=== PATIENT | female | born 1955 | race Caucasian/White ===

== ENCOUNTER 2016-10-22 15:56 | Inpatient (IN) | payer OTHER ==
[~2016-10-22] VITALS: Ht 167.6 cm; Wt 74.3 kg
[~2016-10-22 15:56] MED LIST: ASPI81 PO; ATEN1TAB74 PO; EFFE150C PO; EXEN5PEN SQ; FISHOIL XX; FLON0.053; GLUCTAB PO; HYDR-2768 PO; LANO0.2510 PO; LEVO25TA36 PERC; NIFE1TAB85 PO; TIMO0.5S6 OU; TRIL135C PO; VASO10TA8 PO
[2016-10-22 15:58] VITALS: BP 189/114; PULSE 120; RESP 24; TEMP 102.9; O2SAT 96
--- NOTE | 2016-10-22 16:06 | PD ---
Physical Exam Date Seen by Provider: Oct 22, 2016 Time Seen by Provider: 16:04 Data Data Last Documented VS Vital Signs Date Time Temp Pulse Resp B/P Pulse Ox O2 Delivery O2 Flow Rate FiO2 10/22/16 15:58 102.9 120 24 189/114 96 Room Air [facility] Supervised Visit with VELMA: No Narrative Course 61 YO F with complaint of weeping wound in left axilla. + fever, chills. Recent history tummy tuck and bilateral brachioplasty. Saw plastic surgeon in office this week, told to return Monday. Vitals reviewed. Awaiting bed placement. Idalmis Frost Oct 22, 2016 16:06
[2016-10-22] MEDS ORDERED: SODIUM CHLOR 0.9% 1000 ML INJ 100 ML IV ONE (16:19)
[2016-10-22] MEDS ORDERED: SODIUM CHLOR 0.9% 1000 ML INJ 1,000 ML IV ONE ×2 (16:19)
[2016-10-22 16:20] VITALS: RESP 16; O2SAT 98
[2016-10-22] MEDS ORDERED: PIPERACIL-TAZO 4.5 GM PREMIX 100 ML IV STA (16:27)
[2016-10-22] MEDS ORDERED: VANCOMYCIN INJ 1,000 MG in SODIUM CHLOR 0.9% 250 ML INJ 250 ML IV STA (16:27)
--- NOTE | 2016-10-22 16:29 | PD ---
HPI Chief Complaint: Fever Time Seen by Provider: 16:29 Travel History International Travel<30 days: No Contact w/Intl Traveler<30days: No Traveled to known affect area: No History of Present Illness HPI This is a 61-year-old female with history of hypertension, diabetes, depression , tobacco use, status post bilateral brachioplasty and tummy tuck. Patient underwent these procedures on October 10 in [place]. , the patient tripped over a dog and landed on an outstretched right upper extremity. She tore suture site in the right axilla causing the wound to dehisce. She followed up with her plastic surgeon last week who thought that it "looked awful " but felt that it would heal okay. She was to follow-up with him this coming week however she developed fever today and a malodorous drainage from the wound. Patient states she has not been feeling well throughout the course of the day. She felt that once the fever develop she needed to come to the emergency department. Denies any chest tightness. No difficulty breathing. No abdominal pain, nausea, vomiting. She is reporting no other symptoms at this time. PFSH Past Medical History Depression: Yes Heart Rhythm Problems: No Cancer: No Cardiac Catheterization: No Cardiovascular Problems: Yes (HTN) High Cholesterol: No Congestive Heart Failure: No Diabetes: Yes Diminished Hearing: No Endocrine: Yes Genitourinary: No Hepatitis: No Hiatal Hernia: No Hypertension: Yes Immune Disorder: No Musculoskeletal: Yes (arthritis) Neurologic: No Psychiatric: Yes (pt takes effexor for depression) Reproductive: No Respiratory: Yes (recent sinus infection) Thyroid Disease: Yes Ulcer: Yes Menopausal: Yes Past Surgical History Section: Yes Coronary Artery Bypass Graft: No Eye Surgery: Yes (upper blepharplasty ) Gynecologic Surgery: Yes (C SECTION d and c) Pacemaker: No Thoracic Surgery: Yes (breast reduction) Other Surgery: Yes (BREAST RECONSTRUCTION, D&C) Social History Alcohol Use: No Tobacco Use: Yes (1/2 PPD) Substance Use: No Allergies-Medications (Allergen,Severity, Reaction): Coded Allergies: No Known Allergies (Verified , 10/22/16) Reported Meds & Prescriptions Reported Meds & Active Scripts Active Reported Aspirin DR (Aspirin) 81 Mg Tabdr 81 Mg PO DAILY Atenolol 100 Mg Tab 100 Mg PO DAILY Enalapril (Enalapril Maleate) 20 Mg Tab 20 Mg PO BID Hydrochlorothiazide 25 Mg Tab 25 Mg PO DAILY Levothyroxine (Levothyroxine Sodium) 112 Mcg Tab 112 Mcg PO DAILY Metformin (Metformin HCl) 500 Mg Tab 500 Mg PO AC DINNER With a meal Timolol Opth Drops 0.5 % Soln 1 Drop EACH EYE BID Effexor XR 24 HR (Venlafaxine HCl) 150 Mg Cap 150 Mg PO DAILY Tanzeum 4-Pack Inj (Albiglutide) 30 Mg Pfpen 30 Mg SQ Q7D Vitamin D3 Liq (Cholecalciferol) 1,200 Unit/15 Ml Liqd Unknown Dose PO DAILY Chelated Calcium (Calcium) 200 Mg Tab 400 Mg PO DAILY Review of Systems Except as stated in HPI: all other systems reviewed are Neg Physical Exam Narrative GENERAL: Well-nourished female patient, ambulatory and in no acute distress SKIN: Focused skin assessment warm/dry. Surgical site on the left upper extremity were brachioplasty was done has Steri-Strips in place and is well approximated without erythema or edema. The brachioplasty site in the right upper extremity is dehisced with a large opening in the axilla with a malodorous purulent drainage. Erythema is localized around the opening. There is slight crepitus just near the wound, likely due to the surgical site and large dehisced opening. The abdomen has a binder in place with a well approximated surgical site along the lower abdomen with Steri-Strips in place. There is resolving ecchymosis over the entire abdomen. HEAD: Atraumatic. Normocephalic. EYES: Pupils equal and round. No scleral icterus. No injection or drainage. ENT: No nasal bleeding or discharge. Mucous membranes pink and moist. NECK: Trachea midline. No JVD. CARDIOVASCULAR: Tachycardic rate and rhythm. No murmur appreciated. RESPIRATORY: No accessory muscle use. Clear to auscultation. Breath sounds equal bilaterally. GASTROINTESTINAL: Abdomen soft, non-tender, nondistended. Surgical site as described above. Hepatic and splenic margins not palpable. MUSCULOSKELETAL: No obvious deformities. No clubbing. No cyanosis. No edema. NEUROLOGICAL: Awake and alert. No obvious cranial nerve deficits. Motor grossly within normal limits. Normal speech. PSYCHIATRIC: Appropriate mood and affect; insight and judgment normal. Data Data Last Documented VS Vital Signs Date Time Temp Pulse Resp B/P Pulse Ox O2 Delivery O2 Flow Rate FiO2 10/22/16 18:47 16 10/22/16 18:00 99.2 85 122/59 98 Room Air Orders Electrocardiogram (10/22/16 16:19) Complete Blood Count With Diff (10/22/16 16:19) Comprehensive Metabolic Panel (10/22/16 16:19) Prothrombin Time / Inr (Pt) (10/22/16 16:19) Act Partial Throm Time (Ptt) (10/22/16 16:19) Lactic Acid Sepsis Protocol (10/22/16 16:19) Ckmb (Isoenzyme) Profile (10/22/16 16:19) Urinalysis - C+S If Indicated (10/22/16 16:19) Influenzae A/B Antigen (10/22/16 16:19) Blood Culture (10/22/16 16:19) Chest, Single Ap (10/22/16 16:19) Blood Glucose (10/22/16 16:19) Ecg Monitoring (10/22/16 16:19) Iv Access Insert/Monitor (10/22/16 16:19) Oximetry (10/22/16 16:19) Oxygen Administration (10/22/16 16:19) Acetaminophen (Tylenol) (10/22/16 16:30) Ibuprofen (Motrin) (10/22/16 16:30) Sodium Chlor 0.9% 1000 Ml Inj (Ns 1000 M (10/22/16 16:19) Sodium Chlor 0.9% 1000 Ml Inj (Ns 1000 M (10/22/16 16:19) Sodium Chlor 0.9% 1000 Ml Inj (Ns 1000 M (10/22/16 16:19) Wound Culture And Gram Stain (10/22/16 16:27) Piperacil-Tazo 4.5 Gm Premix (Zosyn 4.5 (10/22/16 16:27) Vancomycin Inj (Vancomycin Inj) (10/22/16 16:27) Vascular Access Team Consult/P PRN (10/22/16 16:39) Vascular Poc Ultrasound (10/22/16 ) Morphine Inj (Morphine Inj) (10/22/16 18:30) Ct Humerus W Iv Contrast (10/22/16 ) Iohexol 350 Inj (Omnipaque 350 Inj) (10/22/16 19:44) Vital Signs (Adult) JOELLEN.Q4H (10/22/16 22:07) Activity Oob Ad Karla (10/22/16 22:07) Sodium Chlor 0.9% 1000 Ml Inj (Ns 1000 M (10/22/16 22:15) Admit Order (Ed Use Only) (10/22/16 22:07) Labs Laboratory Tests Test 10/22/16 10/22/16 10/22/16 17:20 17:25 20:00 White Blood Count 11.8 TH/MM3 Red Blood Count 3.04 MIL/MM3 Hemoglobin 8.5 GM/DL Hematocrit 25.1 % Mean Corpuscular Volume 82.6 FL Mean Corpuscular Hemoglobin 28.0 PG Mean Corpuscular Hemoglobin 33.9 % Concent Red Cell Distribution Width 15.5 % Platelet Count 435 TH/MM3 Mean Platelet Volume 6.8 FL Neutrophils (%) (Auto) 95.8 % Lymphocytes (%) (Auto) 1.9 % Monocytes (%) (Auto) 1.9 % Eosinophils (%) (Auto) 0.2 % Basophils (%) (Auto) 0.2 % Neutrophils # (Auto) 11.3 TH/MM3 Lymphocytes # (Auto) 0.2 TH/MM3 Monocytes # (Auto) 0.2 TH/MM3 Eosinophils # (Auto) 0.0 TH/MM3 Basophils # (Auto) 0.0 TH/MM3 CBC Comment DIFF FINAL Differential Comment Prothrombin Time 12.1 SEC Prothromb Time International 1.1 RATIO Ratio Activated Partial 33.1 SEC Thromboplast Time Sodium Level 127 MEQ/L Potassium Level 3.1 MEQ/L Chloride Level 90 MEQ/L Carbon Dioxide Level 26.9 MEQ/L Anion Gap 10 MEQ/L Blood Urea Nitrogen 9 MG/DL Creatinine 0.46 MG/DL Estimat Glomerular Filtration 137 ML/MIN Rate Random Glucose 128 MG/DL Calcium Level 8.3 MG/DL Total Bilirubin 1.0 MG/DL Aspartate Amino Transf 106 U/L (AST/SGOT) Alanine Aminotransferase 97 U/L (ALT/SGPT) Alkaline Phosphatase 289 U/L Total Creatine Kinase 50 U/L Total Protein 6.2 GM/DL Albumin 2.7 GM/DL Lactic Acid Level 1.4 mmol/L Urine Color LIGHT-YELLOW Urine Turbidity CLEAR Urine pH 7.0 Urine Specific [place] 1.008 Urine Protein NEG mg/dL Urine Glucose (UA) NEG mg/dL Urine Ketones NEG mg/dL Urine Occult Blood NEG Urine Nitrite NEG Urine Bilirubin NEG Urine Urobilinogen LESS THAN 2.0 MG/DL Urine Leukocyte Esterase NEG Urine WBC LESS THAN 1 /hpf Urine Squamous Epithelial <1 /hpf Cells Microscopic Urinalysis Comment CULT NOT INDICATED MDM Medical Decision Making Medical Screen Exam Complete: Yes Emergency Medical Condition: Yes Medical Record Reviewed: Yes Differential Diagnosis Postop infection versus wound dehiscence versus abscess versus necrotizing fasciitis Narrative Course 61-year-old female presents to the emergency department for evaluation. Patient has history of brachioplasty and wound dehiscence of the right upper extremity surgical site. Patient is febrile and tachycardic here. Wound culture is obtained. Sepsis workup was initiated. CBC is a mild leukocytosis of 11.8 and a neutrophilia of 11.3. Patient's CMP is with hyponatremia of 127, hypokalemia 3.1, liver enzymes are elevated with AST of 106, ALT 97, alkaline phosphatase of 289. I discussed the patient with my attending physician who also assessed the surgical site. There is white crepitus near the axillary. CT imaging is ordered for further evaluation of this. 2200 CT imaging results soft tissue induration, skin thickening, and subcutaneous collections of gas in the tissue adjacent to the medial armpit no drainable fluid collection is seen. My initial attending has left and Dr. Cooper has taken over. I have her assess the area as well and agrees the subcutaneous gas is likely secondary to the surgical site and opening. I discussed the patient with Dr. Bernal, he requested admission to Dr. Fair. Sepsis Criteria SIRS Criteria (2 or more): Temp > 100.9 or < 96.8, Heart rate over 90 Sepsis Criteria (SIRS+source): Infect source susp/known Diagnosis Primary Impression: Sepsis Qualified Code: A41.9 - Sepsis, due to unspecified organism Additional Impressions: Post op infection Hyponatremia Transaminitis Admitting Information Admitting Physician Requests: Admit Condition: Stable Daphne Duval BRYANT Oct 22, 2016 16:29
[2016-10-22] MEDS ORDERED: IBUPROFEN 600 MG TAB PO ONE (16:30)
[2016-10-22] MEDS ORDERED: ACETAMINOPHEN 325 MG TAB PO ONE (16:30)
[2016-10-22 17:00] VITALS: BP 132/58; PULSE 72; RESP 16; O2SAT 98
[2016-10-22 17:46] LABS: AUTOMATED NEUTROPHIL # 11.3 TH/MM3 (1.8-7.7); BASOPHIL % 0.2 % (0.0-2.0); EOSINOPHIL % 0.2 % (0.0-4.0); HEMATOCRIT 25.1 % (35.0-46.0); HEMO FLAGS DIFF FINAL; LYMPH % 1.9 % (9.0-44.0); LYMPHOCYTE # 0.2 TH/MM3 (1.0-4.8); MEAN CELL VOLUME 82.6 FL (80.0-100.0); MEAN CORPUSCULAR HGB CONC 33.9 % (32.0-36.0); MONO % 1.9 % (0.0-8.0); NEUT % 95.8 % (16.0-70.0); PLATELET COUNT 435 TH/MM3 (150-450); RED BLOOD COUNT 3.04 MIL/MM3 (4.00-5.30); RED CELL DISTRIBUTION WIDTH 15.5 % (11.6-17.2); WHITE BLOOD COUNT 11.8 TH/MM3 (4.0-11.0)
[2016-10-22 18:00] VITALS: BP 122/59; PULSE 85; RESP 16; TEMP 99.2; O2SAT 98
[2016-10-22 18:00] LABS: APTT (PATIENT) 33.1 SEC (24.3-30.1); INTERNATIONAL NORMALIZED RATIO 1.1 RATIO; PROTHROMBIN TIME - PATIENT 12.1 SEC (9.8-11.6)
--- NOTE | 2016-10-22 18:02 | RADRPT ---
EXAM DATE/TIME: 10/22/2016 17:12 [facility] COMPARISON: No previous studies available for comparison. INDICATIONS : Fever. MEDICAL HISTORY : Diabetes mellitus type II. SURGICAL HISTORY : None. ENCOUNTER: Initial ACUITY: 1 day PAIN SCORE: 0/10 LOCATION: Bilateral chest FINDINGS: A single view of the chest demonstrates the lungs to be symmetrically aerated without evidence of mas s, infiltrate or effusion. The cardiomediastinal contours are unremarkable. Osseous structures are intact. CONCLUSION: The lungs are clear. Geovany Strong MD on October 22, 2016 at 18:00 Board Certified Radiologist. This report was verified electronically.
[2016-10-22 18:14] LABS: ANION GAP 10 MEQ/L (5-15); AST (GOT) 106 U/L (15-37); BICARBONATE 26.9 MEQ/L (21.0-32.0); BLOOD UREA NITROGEN 9 MG/DL (7-18); CHLORIDE 90 MEQ/L (98-107); GLOMERULAR FILTRATION RATE 137 ML/MIN (>89); POTASSIUM 3.1 MEQ/L (3.5-5.1); SODIUM (NA) 127 MEQ/L (136-145)
[2016-10-22 18:15] LABS: ALT (GPT) 97 U/L (10-53)
[2016-10-22 18:17] LABS: ALKALINE PHOSPHATASE 289 U/L (45-117)
[2016-10-22 18:18] LABS: CREATINE KINASE 50 U/L (26-192)
[2016-10-22] MEDS ORDERED: MORPHINE SULFATE 4 MG/ML INJ IV PUSH ONE (18:30)
[2016-10-22] MEDS ORDERED: ALBI1INJ SQ (18:38)
[2016-10-22] MEDS ORDERED: EFFE150C PO (18:38)
[2016-10-22] MEDS ORDERED: TIMO0.5S30 EACH EYE (18:38)
[2016-10-22] MEDS ORDERED: VITA1200 PO (18:38)
[2016-10-22] MEDS ORDERED: METF500T PO (18:38)
[2016-10-22] MEDS ORDERED: CHEL200T PO (18:38)
[2016-10-22] MEDS ORDERED: LEVO-168 PO (18:38)
[2016-10-22] MEDS ORDERED: ATEN100T PO (18:41)
[2016-10-22] MEDS ORDERED: HYDR25TA5 PO (18:41)
[2016-10-22] MEDS ORDERED: ENAL20TA PO (18:41)
[2016-10-22] MEDS ORDERED: ASPI81TA5 PO (18:41)
[2016-10-22] MEDS ORDERED: IOHEXOL 350 MG/ML 10 ML VIAL (for RAD DIAG) IV ONE (19:44)
[2016-10-22 20:58] LABS: BLOOD, URINE NEG (NEG); GLUCOSE,URINE NEG (NEG); KETONE, URINE NEG (NEG); NITRITE,URINE NEG (NEG); SQUAMOUS EPITHELIAL CELL URINE <1 /hpf (0-5); URINE COLOR LIGHT-YELLOW (YELLW/STRAW)
[2016-10-22 20:59] LABS: COMMENT (UR) CULT NOT INDICATED; CULTURE IF INDICATED CULT NOT INDICATED
--- NOTE | 2016-10-22 21:44 | RADRPT ---
EXAM DATE/TIME: 10/22/2016 19:40 [facility] COMPARISON: No previous studies available for comparison. INDICATIONS : Status post-brachioplasty with possible infection of proximal humerus by armpit. IV CONTRAST: 98 cc Omnipaque 350 (iohexol) IV RADIATION DOSE: 44.85 CTDIvol (mGy) MEDICAL HISTORY : None SURGICAL HISTORY : None. ENCOUNTER: Initial ACUITY: 4 - 6 days PAIN SCALE: 4/10 LOCATION: Right proximal humerus. TECHNIQUE: Volumetric scanning of the humerus was performed. Using automated exposure control and adjustment of the mA and/or kV according to patient size, radiation dose was kept as low as reasonably achievable to obtain optimal diagnostic quality images. FINDINGS: There is induration of the fat in the fold of the armpit with several focal collections of gas and sk in thickening. No drainable fluid collections seen. The induration does not extend into the axilla. The shaft of the humerus has a normal appearance there is a fragmented appearance to the greater tube rosity. No periosteal reaction seen. Multiple subchondral cysts are present in the glenoid.. CONCLUSION: Soft tissue induration, skin thickening, and subcutaneous collections of gas in the tissues adjacent to the medial armpit. No drainable fluid collections seen. Geovany Strong MD on October 22, 2016 at 21:39 Board Certified Radiologist. This report was verified electronically.
[2016-10-22] MEDS ORDERED: ONDANSETRON HCL 4 MG/2 ML VIAL ONE (22:11)
[2016-10-22] MEDS ORDERED: SODIUM CHLOR 0.9% 1000 ML INJ 1,000 ML IV SCH (22:15)
[2016-10-22] MEDS ORDERED: Vancomycin Consult Pharmacy 1 EA OTHER SCH (22:15)
[2016-10-22] MEDS ORDERED: ONDANSETRON HCL 4 MG/2 ML VIAL IV PUSH ONE (22:30)
[2016-10-22 23:05] VITALS: BP 123/87; PULSE 113; RESP 20; TEMP 99.4; O2SAT 95
[2016-10-22] MEDS: ENOXAPARIN SODIUM 30 MG/0.3 ML SYRINGE SQ SCH (23:10)
[2016-10-22] MEDS: NS + KCL 20 MEQ INJ 1,000 ML IV SCH (23:10)
[2016-10-22] MEDS: PIPERACIL-TAZO 3.375 GM PREMIX 50 ML IV SCH (23:10)
[2016-10-23] MEDS ORDERED: MORPHINE SULFATE 4 MG/ML INJ IV PRN (01:15)
[2016-10-23] MEDS ORDERED: VANCOMYCIN 1,500 MG/NS 500 ML IV ONE ×2 (02:00)
[2016-10-23 03:44] VITALS: BP 125/58; PULSE 109; RESP 18; TEMP 102.8; O2SAT 95
[2016-10-23] MEDS: ACETAMINOPHEN 500 MG CPLT PO PRN ×2 (04:45→14:10)
[2016-10-23] MEDS: PIPERACIL-TAZO 3.375 GM PREMIX 50 ML IV SCH ×3 (04:45→16:57)
[2016-10-23 05:39] LABS: AUTOMATED NEUTROPHIL # 7.5 TH/MM3 (1.8-7.7); BASOPHIL % 0.5 % (0.0-2.0); EOSINOPHIL # 0.1 TH/MM3 (0-0.4); EOSINOPHIL % 0.7 % (0.0-4.0); HEMATOCRIT 23.7 % (35.0-46.0); LYMPH % 0.8 % (9.0-44.0); LYMPHOCYTE # 0.1 TH/MM3 (1.0-4.8); MEAN CELL VOLUME 84.7 FL (80.0-100.0); MEAN CORPUSCULAR HEMOGLOBIN 28.7 PG (27.0-34.0); MEAN CORPUSCULAR HGB CONC 33.9 % (32.0-36.0); MONO % 1.6 % (0.0-8.0); NEUT % 96.4 % (16.0-70.0); PLATELET COUNT 358 TH/MM3 (150-450); RED CELL DISTRIBUTION WIDTH 15.9 % (11.6-17.2); WHITE BLOOD COUNT 7.8 TH/MM3 (4.0-11.0)
[2016-10-23 05:52] LABS: HEMO FLAGS AUTO DIFF
[2016-10-23 05:53] LABS: BICARBONATE 23.4 MEQ/L (21.0-32.0); POTASSIUM 3.1 MEQ/L (3.5-5.1)
[2016-10-23 06:09] LABS: CALCIUM-PROTEIN CORRECTED 8.2 MG/DL (8.5-10.1)
[2016-10-23] MEDS ORDERED: POTASSIUM CHLORIDE 10 MEQ CONTROLLED RELEASE TAB PO ONE (06:15)
[2016-10-23 07:56] VITALS: BP 133/77; PULSE 92; RESP 18; TEMP 99.1
[2016-10-23 08:01] LABS: BANDS 32 % (0-6); DOHLE BODIES PRESENT (NONE SEEN); EOSINOPHILS 1 % (0-4); METAMYELOCYTES 12 % (0-1); NEUTROPHIL # MANUAL DIFF 7.5 TH/MM3 (1.8-7.7); POLYS (SEG NEUTROPHILS) 52 % (16-70); WBC DIFF SAMPLE 100
[2016-10-23 08:02] LABS: SCAN/DIFF FINAL DIFF MANUAL
[2016-10-23 08:04] VITALS: O2SAT 93
[2016-10-23] MEDS: NS + KCL 20 MEQ INJ 1,000 ML IV SCH ×2 (08:30→16:56)
[2016-10-23] MEDS: ATENOLOL 100 MG TAB PO SCH (08:42)
[2016-10-23] MEDS: VENLAFAXINE HCL XR 75 MG CAP PO SCH (08:42)
[2016-10-23] MEDS: LEVOTHYROXINE SODIUM 112 MCG TAB PO SCH (08:42)
[2016-10-23] MEDS: TIMOLOL MALEATE 0.5% OPHT SOLN 5 ML BTL EACH EYE SCH ×2 (08:42→20:15)
[2016-10-23] MEDS: ASPIRIN EC 81 MG TABEC PO SCH (08:42)
[2016-10-23] MEDS ORDERED: ENALAPRIL MALEATE 10 MG TAB PO SCH (09:00)
[2016-10-23 11:22] VITALS: BP 113/55; PULSE 84; RESP 18; TEMP 100; O2SAT 95
--- NOTE | 2016-10-23 12:46 | HHI.HP ---
HPI Service [facility] Hospitalists Primary Care Physician Luis Antonio Bernal MD Admission Diagnosis POST OP INFECTION; hyponatremia, elevated liver enzymes Chief Complaint: wound infection Travel History International Travel<30 Days: No Contact w/Intl Traveler <30 Da: No Traveled to Known Affected Are: No History of Present Illness Pt is 61 yo woman who underwent bilateral brachioplasy and abdomenoplasty 10/10 in [place]. One week ago she tripped over the dog and significantly ripped open the right axilla and to a smaller degree the left axilla. She reports f/u with her surgeon who per pt proposed a plan of observation and f/u tomorrow. Pt for several days has had fever/chills/ rigors and now foul drainage coming from the right axillary wound. Culture taken last night in ED already growing mrsa. CT shows wound induration and some gas but the wound is wide open. This morning she and her friend report improvement in appearance of the wound and reduced foul odor and drainage. Review of Systems Other foul odor drainage from the right axilla wound after falling and ripping the wound open f/c/rigors Past Family Social History Past Medical History htn dm depression hypothyroidism c section blepharolplasty breast reconstruction obesity bilateral brachioplasty and abdomenoplasty. Reported Medications Aspirin DR (Aspirin) 81 Mg Tabdr 81 Mg PO DAILY Atenolol 100 Mg Tab 100 Mg PO DAILY Enalapril (Enalapril Maleate) 20 Mg Tab 20 Mg PO BID Hydrochlorothiazide 25 Mg Tab 25 Mg PO DAILY Levothyroxine (Levothyroxine Sodium) 112 Mcg Tab 112 Mcg PO DAILY Metformin (Metformin HCl) 500 Mg Tab 500 Mg PO AC DINNER With a meal Timolol Opth Drops 0.5 % Soln 1 Drop EACH EYE BID Effexor XR 24 HR (Venlafaxine HCl) 150 Mg Cap 150 Mg PO DAILY Tanzeum 4-Pack Inj (Albiglutide) 30 Mg Pfpen 30 Mg SQ Q7D Vitamin D3 Liq (Cholecalciferol) 1,200 Unit/15 Ml Liqd Unknown Dose PO DAILY Chelated Calcium (Calcium) 200 Mg Tab 400 Mg PO DAILY Allergies: Coded Allergies: No Known Allergies (Verified , 10/22/16) Family History nc Social History no etoh/ 1/2ppd Physical Exam Vital Signs heent neg heart reg lung cta abd horizontal surgical wound..no drainage or erythema. steristrips left axilla surgical wound open but no drainage and minimal erythema around the edge. arm wound approximated right axillary wound wide open with underlying fat visible and foul drainage. arm wound approximated. Vital Signs Date Time Temp Pulse Resp B/P Pulse Ox O2 Delivery O2 Flow Rate FiO2 10/23/16 11:22 100.0 84 18 113/55 95 10/23/16 08:04 93 10/23/16 07:56 99.1 92 18 133/77 10/23/16 03:44 102.8 109 18 125/58 95 10/22/16 23:05 99.4 113 20 123/87 95 10/22/16 18:47 16 10/22/16 18:46 16 10/22/16 18:00 99.2 85 16 122/59 98 Room Air 10/22/16 17:00 72 16 132/58 98 Room Air 10/22/16 16:20 Room Air 10/22/16 16:20 16 98 Room Air 10/22/16 16:20 84 16 98 Room Air 10/22/16 15:58 102.9 120 24 189/114 96 Room Air Laboratory Laboratory Tests Test 10/22/16 10/22/16 10/22/16 10/23/16 17:20 17:25 20:00 04:33 White Blood Count 11.8 7.8 Red Blood Count 3.04 2.80 Hemoglobin 8.5 8.0 Hematocrit 25.1 23.7 Mean Corpuscular Volume 82.6 84.7 Mean Corpuscular Hemoglobin 28.0 28.7 Mean Corpuscular Hemoglobin 33.9 33.9 Concent Red Cell Distribution Width 15.5 15.9 Platelet Count 435 358 Mean Platelet Volume 6.8 7.1 Neutrophils (%) (Auto) 95.8 96.4 Lymphocytes (%) (Auto) 1.9 0.8 Monocytes (%) (Auto) 1.9 1.6 Eosinophils (%) (Auto) 0.2 0.7 Basophils (%) (Auto) 0.2 0.5 Neutrophils # (Auto) 11.3 7.5 Lymphocytes # (Auto) 0.2 0.1 Monocytes # (Auto) 0.2 0.1 Eosinophils # (Auto) 0.0 0.1 Basophils # (Auto) 0.0 0.0 CBC Comment DIFF FINAL AUTO DIFF Differential Comment FINAL DIFF MANUAL Prothrombin Time 12.1 Prothromb Time International 1.1 Ratio Activated Partial 33.1 Thromboplast Time Sodium Level 127 133 Potassium Level 3.1 3.1 Chloride Level 90 100 Carbon Dioxide Level 26.9 23.4 Anion Gap 10 10 Blood Urea Nitrogen 9 10 Creatinine 0.46 0.49 Estimat Glomerular Filtration 137 128 Rate Random Glucose 128 98 Calcium Level 8.3 7.4 Total Bilirubin 1.0 Aspartate Amino Transf 106 (AST/SGOT) Alanine Aminotransferase 97 (ALT/SGPT) Alkaline Phosphatase 289 Total Creatine Kinase 50 Total Protein 6.2 5.6 Albumin 2.7 Lactic Acid Level 1.4 Urine Color LIGHT-YELLOW Urine Turbidity CLEAR Urine pH 7.0 Urine Specific [place] 1.008 Urine Protein NEG Urine Glucose (UA) NEG Urine Ketones NEG Urine Occult Blood NEG Urine Nitrite NEG Urine Bilirubin NEG Urine Urobilinogen LESS THAN 2.0 Urine Leukocyte Esterase NEG Urine WBC LESS THAN 1 Urine Squamous Epithelial <1 Cells Microscopic Urinalysis Comment CULT NOT INDICATED Differential Total Cells 100 Counted Neutrophils % (Manual) 52 Band Neutrophils % 32 Lymphocytes % 3 Eosinophils % 1 Neutrophils # (Manual) 7.5 Metamyelocytes 12 Dohle Bodies PRESENT Protein Corrected Calcium 8.2 Random Vancomycin Level 28.9 Date/Time Procedure Status Source Growth 10/22/16 17:25 Aerobic Blood Culture - Preliminary Resulted Blood Peripheral NO GROWTH IN 1 DAY 10/22/16 17:25 Anaerobic Blood Culture - Preliminary Resulted Blood Peripheral NO GROWTH IN 1 DAY 10/22/16 16:30 Influenza Types A,B Antigen ([facility]) - Final Complete Nasal Washing NEGATIVE FOR FLU A AND B ANTIGEN.... 10/22/16 16:30 Gram Stain - Final Resulted Wound Arm 10/22/16 16:30 Wound Culture Resulted Wound Arm Pending Result Diagram: 10/23/16 0433 10/23/16 0433 Assessment and Plan Problem List: (1) Post op infection Status: Acute Plan: Pt is 61 yo with hx morbid obesity, dm, htn She underwent brachioplasty sam and abdomenplasty 10/10 in [place]. She fell over the dog 1 week ago and the axillary surgical wound both ripped open..worse on the right side. She followed up once with her surgeon and was supposed to go back tomorrow. Presents with several days of f/c/rigors and concern for sepsis. The right axillary wound has alot of foul smelling drainage. wound cx from 10/22 growing MRSA She has anemia and lft elevated. ?related to infection cont broad abx until cx final I requested gen surg look at the wound today just to make sure no urgent surgical care was required and to advise on wound care. wound care order written monitor h/h and lft ivf and kcl to replace electrolytes might need to hold bp meds. will need to decide once infection under control if refer back to her surgeon in [place] vs getting a local Plastic surgeon. If we get infection under control she could probably just go back to the original surgeon unless pt is resistant. (2) Hyponatremia Status: Acute Plan: related to dehydration ivf (3) DM (diabetes mellitus) Status: Chronic Plan: ssi (4) HTN (hypertension) Status: Chronic (5) Depressed Status: Chronic Physician Certification 2 Midnight Certification Type: Admission for Inpatient Services Order for Inpatient Services 3The services are ordered in accordance with Medicare regulations or non- Medicare payer requirements, as applicable. In the case of services not specified as inpatient-only, they are appropriately provided as inpatient services in accordance with the 2-midnight benchmark. Estimated LOS (days): 3 3 days is the estimated time the patient will need to remain in the hospital, assuming treatment plan goals are met and no additional complications. Post-Hospital Plan: Home Jacques Reyes MD Oct 23, 2016 12:45
[2016-10-23] MEDS ORDERED: POTASSIUM CHLORIDE 20 MEQ CONTROLLED RELEASE TAB PO ONE (13:00)
--- NOTE | 2016-10-23 14:23 | EKG ---
Date Performed: 10/22/2016 Time Performed: 18:45:57 PTAGE: 61 years EKG: Sinus rhythm NONSPECIFIC T-WAVE ABNORMALITY BORDERLINE ECG Since PREVIOUS TRACING 08/18/2010, no significant change. PREVIOUS TRACIN08/18/2010 10.50 DOCTOR: Jacques Thurston Interpretating Date/Time 10/23/2016 14:22:00
[2016-10-23] MEDS: INSULIN ASPART SUPPLEMENTAL SCALE SQ SCH ×2 (15:54→20:22)
[2016-10-23 16:00] VITALS: BP 99/50; PULSE 84; RESP 16; TEMP 100.7; O2SAT 90
[2016-10-23] MEDS: metFORMIN HCL 500 MG TAB PO SCH ×2 (16:00→16:57)
[2016-10-23 20:00] VITALS: BP 135/59; PULSE 81; RESP 17; TEMP 99.6; O2SAT 96
[2016-10-23] MEDS: ACETAMINOPHEN/HYDROcodone 325 MG/5 MG TAB PO PRN (20:16)
[2016-10-23] MEDS: ONDANSETRON HCL 4 MG/2 ML VIAL IV PUSH PRN (20:16)
[2016-10-23] MEDS: POTASSIUM CHLORIDE 20 MEQ CONTROLLED RELEASE TAB PO SCH (20:16)
[2016-10-23] MEDS: ENOXAPARIN SODIUM 30 MG/0.3 ML SYRINGE SQ SCH (23:14)
[2016-10-24] VITALS (11 sets, daily range): BP systolic 109–168; BP diastolic 53–74; PULSE 69–88; RESP 16–18; TEMP 97.1–99.9; O2SAT 92–97
[2016-10-24] MEDS: PIPERACIL-TAZO 3.375 GM PREMIX 50 ML IV SCH ×3 (00:25→13:06)
[2016-10-24] MEDS: VANCOMYCIN 1,000 MG/NS 250 ML IV SCH ×4 (03:38→15:00)
[2016-10-24] MEDS: NS + KCL 20 MEQ INJ 1,000 ML IV SCH (03:39)
[2016-10-24] MEDS: ACETAMINOPHEN 325 MG TAB PO PRN (05:29)
[2016-10-24] MEDS: INSULIN ASPART SUPPLEMENTAL SCALE SQ SCH ×4 (05:30→20:30)
[2016-10-24 05:35] LABS: AUTOMATED NEUTROPHIL # 3.1 TH/MM3 (1.8-7.7); BASOPHIL % 0.2 % (0.0-2.0); EOSINOPHIL % 0.9 % (0.0-4.0); HEMATOCRIT 21.6 % (35.0-46.0); LYMPH % 3.1 % (9.0-44.0); LYMPHOCYTE # 0.1 TH/MM3 (1.0-4.8); MEAN CELL VOLUME 83.8 FL (80.0-100.0); MEAN CORPUSCULAR HEMOGLOBIN 27.7 PG (27.0-34.0); NEUT % 91.8 % (16.0-70.0); PLATELET COUNT 318 TH/MM3 (150-450); RED BLOOD COUNT 2.58 MIL/MM3 (4.00-5.30); RED CELL DISTRIBUTION WIDTH 15.9 % (11.6-17.2); WHITE BLOOD COUNT 3.4 TH/MM3 (4.0-11.0)
[2016-10-24 05:39] LABS: HEMO FLAGS AUTO DIFF
[2016-10-24 06:11] LABS: BICARBONATE 23.6 MEQ/L (21.0-32.0); INDIRECT BILIRUBIN 0.8 MG/DL (0.0-0.8); MAGNESIUM 1.7 MG/DL (1.5-2.5); POTASSIUM 3.8 MEQ/L (3.5-5.1); TOTAL BILIRUBIN ADULT 4.5 MG/DL (0.2-1.0)
[2016-10-24 06:17] LABS: CALCIUM-PROTEIN CORRECTED 7.9 MG/DL (8.5-10.1)
[2016-10-24] MEDS: ONDANSETRON HCL 4 MG/2 ML VIAL IV PUSH PRN ×3 (06:41→17:05)
[2016-10-24] MEDS: ACETAMINOPHEN/HYDROcodone 325 MG/5 MG TAB PO PRN ×2 (06:41→17:06)
[2016-10-24 08:19] LABS: BANDS 25 % (0-6); EOSINOPHILS 1 % (0-4); NEUTROPHIL # MANUAL DIFF 3.1 TH/MM3 (1.8-7.7); POLYS (SEG NEUTROPHILS) 66 % (16-70); WBC DIFF SAMPLE 100
[2016-10-24 08:26] LABS: PLATELET ESTIMATE SMEAR NORMAL (NORMAL); PLATELET MORPHOLOGY NORMAL (NORMAL)
[2016-10-24 08:27] LABS: SCAN/DIFF FINAL DIFF MANUAL
[2016-10-24] MEDS: POTASSIUM CHLORIDE 20 MEQ CONTROLLED RELEASE TAB PO SCH ×2 (08:35→20:33)
[2016-10-24] MEDS: ASPIRIN EC 81 MG TABEC PO SCH (08:35)
[2016-10-24] MEDS: ATENOLOL 100 MG TAB PO SCH (08:35)
[2016-10-24] MEDS: TIMOLOL MALEATE 0.5% OPHT SOLN 5 ML BTL EACH EYE SCH ×2 (08:35→20:32)
[2016-10-24] MEDS: LEVOTHYROXINE SODIUM 112 MCG TAB PO SCH (08:35)
[2016-10-24] MEDS: VENLAFAXINE HCL XR 75 MG CAP PO SCH (08:35)
[2016-10-24] MEDS ORDERED: FUROSEMIDE 20 MG/2 ML VIAL IV PUSH SCH (09:00)
--- NOTE | 2016-10-24 12:26 | HHI.PR ---
Subjective Remarks Pt c/o generalized fatigue. Pt requests change to regular diet. Objective Vitals Vital Signs Date Time Temp Pulse Resp B/P Pulse Ox O2 Delivery O2 Flow Rate FiO2 10/24/16 08:00 97.1 81 17 109/53 92 10/24/16 04:50 94 Nasal Cannula 2.00 10/24/16 04:50 99.9 88 18 139/63 94 10/24/16 00:00 98.1 72 17 121/68 97 10/23/16 20:00 99.6 81 17 135/59 96 10/23/16 16:00 100.7 84 16 99/50 90 10/23/16 10/23/16 10/24/16 15:00 23:00 07:00 Intake Total 459 ml 918 ml Balance 459 ml 918 ml Intake Oral 240 ml 240 ml IV Total 219 ml 678 ml # Voids 1 2 Result Diagram: 10/24/16 0500 10/24/16 0500 Imaging Last Impressions Chest X-Ray 10/22/16 1619 Signed Impressions: Service Date/Time: Saturday, October 22, 2016 17:12 - CONCLUSION: The lungs are clear. Geovany Strong MD Upper Extremity CT 10/22/16 0000 Signed Impressions: Service Date/Time: Saturday, October 22, 2016 19:40 - CONCLUSION: Soft tissue induration, skin thickening, and subcutaneous collections of gas in the tissues adjacent to the medial armpit. No drainable fluid collections seen. Geovany Strong MD Objective Remarks GENERAL: This is a well-nourished, well-developed patient, in no apparent distress. CARDIOVASCULAR: Regular rate and rhythm without murmurs, gallops, or rubs. RESPIRATORY: Clear to auscultation. Breath sounds equal bilaterally. No wheezes , rales, or rhonchi. GASTROINTESTINAL: Abdomen soft, non-tender, nondistended. Normal active bowel sounds MUSCULOSKELETAL: Extremities without clubbing, cyanosis, or edema. NEURO: Alert & Oriented x4 to person, place, time, situation. Moves all ext x4 skin: large dehisced wound at right axilla with packing, small dehisced wound at right axilla blood oozing from right side of abdominal wound with dressing and abdominal binder saturated. A/P Problem List: (1) Post op infection Status: Acute Plan: - Pt is 61 yo with hx morbid obesity, dm, htn - She underwent brachioplasty sam and abdomenplasty 10/10 in [place]. - She fell over the dog 1 week prior to [facility] admission and the axillary surgical wound both ripped open - worse on the right side. - She followed up once with her surgeon and was supposed to go back Monday - Pt presented to [facility] with several days of f/c/rigors and concern for sepsis. - Upon initial presentation, The right axillary wound had alot of foul smelling drainage. - wound cx from 10/22 growing MRSA - Vancomycin & Zosyn - Request ID consult - Case d/w Dr. Emigdio Moss, Plastic Surgeon. He will consult - Case d/w pt's surgeon, Dr. Hernandez ([facility]). - wound care - IVFs - She has anemia and lft elevated. ?related to infection (2) Hyponatremia Status: Acute Plan: - improving - continue NS (3) DM (diabetes mellitus) Status: Chronic Plan: ssi (4) Anemia, blood loss Status: Acute Plan: - bloody drainage from abdominal wound - suspect blood loss anemia vs d/t infection - per pt's surgeon Dr. Hernandez, her pre-op CBC showed Hg 14 with HCT 43 (5) HTN (hypertension) Status: Chronic Plan: - trending hypotensive - enalapril and HCTZ stopped - atenolol decreased from 100mg daily to 50mg daily - observe (6) Depressed Status: Chronic (7) Elevated transaminase level Status: Acute Plan: - d/t infection? - will obtain Abdominal US to evaluate for liver or biliary pathology. Problem Qualifiers (1) HTN (hypertension): Qualified Code: I10 - Essential hypertension Maicol Ramey DO Oct 24, 2016 12:26
[2016-10-24] MEDS ORDERED: LIDOCAINE 2%/EPINEPHrine 1:100,000 30ML MDV ONE (14:26)
--- NOTE | 2016-10-24 15:18 | PD.CONS ---
History of Present Illness Service Infectious disease Consult Requested By Dr. Ramey Reason for Consult Evaluate patient with MRSA from a wound culture Primary Care Physician Luis Antonio Bernal MD Diagnoses: History of Present Illness Patient seen and examined. Records reviewed. Patient is a 61-year-old female, underwent bilateral brachial plasty and abdominoplasty last October 10 in [place], admitted to the hospital for evaluation of fever and chills and foul-smelling drainage from her right axilla wound. Patient was apparently seen postop by the surgeon before the weekend. She was doing well at that time, but the patient stated that the wounds were not examined by the surgeon at that time. However she was not really having any problem. On , the patient tripped and fell and apparently developed some opening in the wounds in both axillary region. She had a scheduled follow-up appointment with the surgeon on Monday which would be October 19, and patient was just instructed to do some shower and wound care, and it was felt that there was no infection at that time. She was not placed on any antibiotics. On the day of admission however patient started having fever and chills and right gutters, and had noted foul-smelling drainage from her right axillary wound. She presented to the hospital for further evaluation and treatment. Her initial WBC was elevated. She has had some fevers. Culture of the wound on the right has MRSA. Patient was evaluated by plastic surgery today, and there was some bloody drainage from her abdominoplasty incision. A JENNIFER drain was placed on the lateral most aspect of that abdominal incision. She denies any respiratory complaint. No nausea or vomiting, diarrhea or any urinary complaint. Infectious disease consultations be requested to evaluate the patient. Review of Systems Constitutional: COMPLAINS OF: Fever, Chills Eyes: DENIES: Eye pain Ears, nose, mouth, throat: DENIES: Nasal discharge, Oral lesions, Ear Pain, Sinus Pain Respiratory: DENIES: Cough, Sputum production, Shortness of breath Cardiovascular: DENIES: Chest pain, Palpitations, Syncope, Dyspnea on Exertion Gastrointestinal: COMPLAINS OF: Abdominal pain, DENIES: Diarrhea, Nausea, Vomiting, Difficulty Swallowing Genitourinary: DENIES: Urinary frequency, Dysuria Musculoskeletal: DENIES: Joint pain, Stiffness Integumentary: DENIES: Rash Neurologic: DENIES: Headache Psychiatric: DENIES: Anxiety Past Family Social History Allergies: Coded Allergies: *MDRO Multi-Drug Resistant Organism (Verified Adverse Reaction, Unknown, MRSA, 10/24/16) MRSA (wound) - 10/22/16 Past Medical History Hypertension Diabetes Depression Hypothyroidism Obesity Past Surgical History section Blepharolplasty Breast reconstruction Bilateral brachioplasty and abdominoplasty. Active Ordered Medications Tylenol [place] Aspirin Tenormin Lovenox Lasix Insulin Synthroid Zofran Zosyn Potassium Timoptic eyedrops Vancomycin Effexor Social History No ETOH abuse 1/2 ppd smoking No illicit drugs Physical Exam Vital Signs Vital Signs Date Time Temp Pulse Resp B/P Pulse Ox O2 Delivery O2 Flow Rate FiO2 10/24/16 14:28 Nasal Cannula 2.00 10/24/16 12:30 98.1 71 16 129/60 97 10/24/16 12:15 99.2 72 16 116/56 97 10/24/16 12:00 98.2 69 17 112/55 95 10/24/16 08:00 97.1 81 17 109/53 92 10/24/16 04:50 94 Nasal Cannula 2.00 10/24/16 04:50 99.9 88 18 139/63 94 10/24/16 00:00 98.1 72 17 121/68 97 10/23/16 20:00 99.6 81 17 135/59 96 10/23/16 16:00 100.7 84 16 99/50 90 Physical Exam GENERAL: Patient is a well-nourished, well-developed CF, awake and alert, not in respiratory distress. SKIN: Warm and dry. No generalized rash, no ecchymoses and no evidence of embolic lesions. HEAD: Atraumatic. Normocephalic. No temporal wasting, or tenderness. EYES: [place] conjunctiva. No petechia or hemorrhage. Pupils equal, round and reactive to light. Extraocular movements full and intact. No scleral icterus. No injection or drainage. EARS, NOSE AND THROAT: Nose without bleeding or purulent nasal discharge. No sinus tenderness. Mucous membranes pink and moist. No oral lesions noted. No exudate. No oral thrush. NECK: Trachea midline. Supple and not tender, no meningeal signs CARDIOVASCULAR: Regular rate and rhythm. No murmurs, rubs or gallops heard RESPIRATORY: Clear to auscultation. Breath sounds equal bilaterally. No rales , wheezing or rhonchi ABDOMEN: Flat, has the abdominoplasty incision, with very minimal erythema, fairly dry except on R lateral area that now has a JENNIFER drain with dark red blood coming out. Bowel sounds present and normoactive. No guarding. No rebound. No organomegaly. EXTREMITIES: No clubbing, cyanosis, or pedal edema. No joint effusion, has good ROM. No calf tenderness. Well perfused and warm. RUE - dry incision in the upper arm, and there is wound dehiscence in R axilla that is about 2 inch diameter, no purulence noted. LUE - has dry incision, steristrips still in place, and there is a smaller dehiscence that is about 1 inch x 1/4 inch with packing NEUROLOGICAL: Awake and alert. Cranial nerves grossly intact. Motor grossly within normal limits. PSYCHIATRIC: Normal affect, calm and cooperative. LINE: No evidence of infection Laboratory Laboratory Tests Test 10/24/16 10/24/16 05:00 10:12 White Blood Count 3.4 Red Blood Count 2.58 Hemoglobin 7.1 Hematocrit 21.6 Mean Corpuscular Volume 83.8 Mean Corpuscular Hemoglobin 27.7 Mean Corpuscular Hemoglobin 33.0 Concent Red Cell Distribution Width 15.9 Platelet Count 318 Mean Platelet Volume 7.2 Neutrophils (%) (Auto) 91.8 Lymphocytes (%) (Auto) 3.1 Monocytes (%) (Auto) 4.0 Eosinophils (%) (Auto) 0.9 Basophils (%) (Auto) 0.2 Neutrophils # (Auto) 3.1 Lymphocytes # (Auto) 0.1 Monocytes # (Auto) 0.1 Eosinophils # (Auto) 0.0 Basophils # (Auto) 0.0 CBC Comment AUTO DIFF Differential Total Cells 100 Counted Neutrophils % (Manual) 66 Band Neutrophils % 25 Lymphocytes % 5 Monocytes % 3 Eosinophils % 1 Neutrophils # (Manual) 3.1 Differential Comment FINAL DIFF MANUAL Platelet Estimate NORMAL Platelet Morphology Comment NORMAL Sodium Level 131 Potassium Level 3.8 Chloride Level 99 Carbon Dioxide Level 23.6 Anion Gap 8 Blood Urea Nitrogen 14 Creatinine 0.44 Estimat Glomerular Filtration 144 Rate Random Glucose 92 Calcium Level 7.0 Protein Corrected Calcium 7.9 Magnesium Level 1.7 Total Bilirubin 4.5 Direct Bilirubin 3.7 Indirect Bilirubin 0.8 Aspartate Amino Transf 45 (AST/SGOT) Alanine Aminotransferase 84 (ALT/SGPT) Alkaline Phosphatase 345 Total Protein 5.4 Albumin 2.0 Blood Type O POSITIVE Antibody Screen NEGATIVE Crossmatch Leukocyte-Reduced Red Blood Cells Blood Bank Comment Date/Time Procedure Status Source Growth 10/22/16 17:25 Aerobic Blood Culture - Preliminary Resulted Blood Peripheral NO GROWTH IN 2 DAYS 10/22/16 17:25 Anaerobic Blood Culture - Preliminary Resulted Blood Peripheral NO GROWTH IN 2 DAYS 10/22/16 16:30 Influenza Types A,B Antigen (DAMEON) - Final Complete Nasal Washing NEGATIVE FOR FLU A AND B ANTIGEN.... 10/22/16 16:30 Gram Stain - Final Complete Wound Arm 10/22/16 16:30 Wound Culture - Final Complete S. Aureus Mrsa Result Diagram: 10/24/16 0500 10/24/16 0500 Imaging RADIOLOGY STUDIES/FILMS REVIEWED Chest X-Ray 10/22/16 1619 Signed Impressions: Service Date/Time: Saturday, October 22, 2016 17:12 - CONCLUSION: The lungs are clear. Geovany Strong MD Upper Extremity CT 10/22/16 0000 Signed Impressions: Service Date/Time: Saturday, October 22, 2016 19:40 - CONCLUSION: Soft tissue induration, skin thickening, and subcutaneous collections of gas in the tissues adjacent to the medial armpit. No drainable fluid collections seen. Geovany Strong MD Assessment and Plan Assessment and Plan IMPRESSION Sepsis on presentation due to post-op wound infections sam brachioplasty, C/S MRSA - fevers better - now developing neutropenia, ?meds Wound dehiscence both axilla incision S/P brachioplasty, C/S MRSA S/P abdominoplasty with postop hematoma Abnormal LFTs, ?due to sepsis - no N/V - no pain except over the incisions RECOMMENDATION Continue IV Vancomycin Stop Zosyn Follow WBC Follow temps Follow C/S Follow LFT Agree with abd US Monitor progress Will determine course of Rx depending on her response to Rx I will follow along with you Thank you for this consultation Discussed Condition With Explained plan to patient D/W Shavonne Magallanes MD Oct 24, 2016 15:18
[2016-10-24] MEDS ORDERED: FUROSEMIDE 20 MG/2 ML VIAL IV ONE (15:30)
[2016-10-24] MEDS ORDERED: SODIUM CHLOR 0.9% 250 ML INJ 250 ML IV ONE (15:30)
[2016-10-24 20:00] LABS: HEMATOCRIT 25.4 % (35.0-46.0); MEAN CELL VOLUME 84.2 FL (80.0-100.0); MEAN CORPUSCULAR HEMOGLOBIN 29.6 PG (27.0-34.0); MEAN CORPUSCULAR HGB CONC 35.1 % (32.0-36.0); PLATELET COUNT 374 TH/MM3 (150-450); RED BLOOD COUNT 3.02 MIL/MM3 (4.00-5.30); RED CELL DISTRIBUTION WIDTH 16.3 % (11.6-17.2); WHITE BLOOD COUNT 2.8 TH/MM3 (4.0-11.0)
[2016-10-24 20:11] LABS: HEMO FLAGS AUTO DIFF
--- NOTE | 2016-10-24 20:11 | PD.PLAS.PN ---
Subjective Remarks Patient doing well, feels much more alert and stronger. No fever Abdomen soft, can feel the deeper layers now, not much fluid collection at this time. JENNIFER - mostly brown / black thin fluid, no clots. Sample taken from the JENNIFER bulb after cleaning the ports - for Culture. Patient can have dinner now. I will be available on phone for next 2 days while I am in town, not planning to see her Dr. Chapa will continue further care. Vital Signs Date Time Temp Pulse Resp B/P Pulse Ox O2 Delivery O2 Flow Rate FiO2 10/24/16 18:01 93 Nasal Cannula 2.00 10/24/16 16:30 98.1 78 16 118/58 94 10/24/16 16:00 98.8 74 16 126/60 93 10/24/16 15:45 98.8 74 16 126/60 93 10/24/16 14:28 Nasal Cannula 2.00 10/24/16 12:30 98.1 71 16 129/60 97 10/24/16 12:15 99.2 72 16 116/56 97 10/24/16 12:00 98.2 69 17 112/55 95 10/24/16 08:00 97.1 81 17 109/53 92 10/24/16 04:50 94 Nasal Cannula 2.00 10/24/16 04:50 99.9 88 18 139/63 94 10/24/16 00:00 98.1 72 17 121/68 97 I/O 10/23/16 10/23/16 10/23/16 10/24/16 10/24/16 10/24/16 07:00 15:00 23:00 07:00 15:00 23:00 Intake Total 459 ml 918 ml 540 ml Output Total 600 ml 30 ml Balance 459 ml 918 ml -60 ml -30 ml Intake Oral 240 ml 240 ml 540 ml IV Total 219 ml 678 ml Output Drainage Total 600 ml 30 ml # Voids 1 2 1 # Bowel Movements 0 Laboratory Tests Test 10/24/16 10/24/16 10/24/16 05:00 10:12 15:17 White Blood Count 3.4 Red Blood Count 2.58 Hemoglobin 7.1 Hematocrit 21.6 Mean Corpuscular Volume 83.8 Mean Corpuscular Hemoglobin 27.7 Mean Corpuscular Hemoglobin 33.0 Concent Red Cell Distribution Width 15.9 Platelet Count 318 Mean Platelet Volume 7.2 Neutrophils (%) (Auto) 91.8 Lymphocytes (%) (Auto) 3.1 Monocytes (%) (Auto) 4.0 Eosinophils (%) (Auto) 0.9 Basophils (%) (Auto) 0.2 Neutrophils # (Auto) 3.1 Lymphocytes # (Auto) 0.1 Monocytes # (Auto) 0.1 Eosinophils # (Auto) 0.0 Basophils # (Auto) 0.0 CBC Comment AUTO DIFF Differential Total Cells 100 Counted Neutrophils % (Manual) 66 Band Neutrophils % 25 Lymphocytes % 5 Monocytes % 3 Eosinophils % 1 Neutrophils # (Manual) 3.1 Differential Comment FINAL DIFF MANUAL Platelet Estimate NORMAL Platelet Morphology Comment NORMAL Sodium Level 131 Potassium Level 3.8 Chloride Level 99 Carbon Dioxide Level 23.6 Anion Gap 8 Blood Urea Nitrogen 14 Creatinine 0.44 Estimat Glomerular Filtration 144 Rate Random Glucose 92 Calcium Level 7.0 Protein Corrected Calcium 7.9 Magnesium Level 1.7 Total Bilirubin 4.5 Direct Bilirubin 3.7 Indirect Bilirubin 0.8 Aspartate Amino Transf 45 (AST/SGOT) Alanine Aminotransferase 84 (ALT/SGPT) Alkaline Phosphatase 345 Total Protein 5.4 Albumin 2.0 Blood Type O POSITIVE O POSITIVE Antibody Screen NEGATIVE Crossmatch Leukocyte-Reduced Leukocyte-Reduced Red Blood Red Blood Cells Cells Blood Bank Comment Date/Time Procedure Status Source Growth 10/22/16 17:25 Aerobic Blood Culture - Preliminary Resulted Blood Peripheral NO GROWTH IN 2 DAYS 10/22/16 17:25 Anaerobic Blood Culture - Preliminary Resulted Blood Peripheral NO GROWTH IN 2 DAYS 10/22/16 16:30 Influenza Types A,B Antigen (DAMEON) - Final Complete Nasal Washing NEGATIVE FOR FLU A AND B ANTIGEN.... 10/22/16 16:30 Gram Stain - Final Complete Wound Arm 10/22/16 16:30 Wound Culture - Final Complete S. Aureus Mrsa Result Diagram: 10/24/16 0500 10/24/16 0500 Emigdio Moss MD Oct 24, 2016 20:11
[2016-10-24 20:43] LABS: BANDS 14 % (0-6); NEUTROPHIL # MANUAL DIFF 2.4 TH/MM3 (1.8-7.7); PLATELET ESTIMATE SMEAR NORMAL (NORMAL); PLATELET MORPHOLOGY NORMAL (NORMAL); POLYS (SEG NEUTROPHILS) 71 % (16-70); SCAN/DIFF FINAL DIFF MANUAL; WBC DIFF SAMPLE 100
--- NOTE | 2016-10-24 20:59 | RADRPT ---
EXAM DATE/TIME: 10/24/2016 14:14 [facility] COMPARISON: No previous studies available for comparison. INDICATIONS : Elevated transaminases. Abdominal pain. MEDICAL HISTORY : Hypothyroidism. Glaucoma. Hypertension. Ulcer. Arthritits. Gall bladder disease. Diabetes. PTSD. Depression. MRSA. SURGICAL HISTORY : Cholecystectomy. section. Right shoulder rotator cuff repair. Tummy tuck. ENCOUNTER: Initial ACUITY: 1 day PAIN SCORE: 7/10 LOCATION: Abdomen. MEASUREMENTS: LIVER: 20.1 cm length COMMON DUCT: 3 mm RIGHT KIDNEY: 10.5 x 7.6 x 4.9 cm LEFT KIDNEY: Nonvisualized SPLEEN: 10.2 cm length AORTA: 2.6cm maximal FINDINGS: LIVER: Normal echotexture without focal lesion or ductal dilatation. There is normal flow direction in the m ain portal vein. COMMON DUCT: No intraluminal mass or stone visualized. GALLBLADDER: Previous cholecystectomy. PANCREAS: The visualized portions are within normal limits. RIGHT KIDNEY: No hydronephrosis, stone or mass. LEFT KIDNEY: Not well seen. No definite acute abnormality. SPLEEN: No focal lesion. AORTA: Non aneurysmal. IVC: Within normal limits. CONCLUSION: Nonspecific hepatomegaly. No focal hepatic lesion or evidence of biliary obstruction. Previous cholec ystectomy. Darrion Bills MD on October 24, 2016 at 20:56 Board Certified Radiologist. This report was verified electronically.
[2016-10-24] MEDS: ENOXAPARIN SODIUM 30 MG/0.3 ML SYRINGE SQ SCH (22:44)
[2016-10-24] MEDS: SODIUM HYPOCHLORITE 0.25% 500 ML BTL TOPICAL SCH (22:45)
[2016-10-24] MEDS: POVIDONE IODINE 10% SOLN 480 ML BTL TOPICAL SCH (22:45)
[2016-10-25] VITALS: BP 160/70; PULSE 76; RESP 18; TEMP 97.6; O2SAT 93
[2016-10-25] MEDS: NS + KCL 20 MEQ INJ 1,000 ML IV SCH ×2 (00:09→09:10)
[2016-10-25] MEDS ORDERED: PHARMACY ORDERED LAB ONE (02:45)
[2016-10-25] MEDS: ACETAMINOPHEN 325 MG TAB PO PRN (03:13)
[2016-10-25 04:08] LABS: HEMATOCRIT 27.1 % (35.0-46.0); MEAN CELL VOLUME 85.4 FL (80.0-100.0); MEAN CORPUSCULAR HEMOGLOBIN 28.2 PG (27.0-34.0); MEAN CORPUSCULAR HGB CONC 33.1 % (32.0-36.0); PLATELET COUNT 349 TH/MM3 (150-450); RED BLOOD COUNT 3.17 MIL/MM3 (4.00-5.30); RED CELL DISTRIBUTION WIDTH 15.9 % (11.6-17.2); WHITE BLOOD COUNT 3.2 TH/MM3 (4.0-11.0)
[2016-10-25 04:10] LABS: HEMO FLAGS AUTO DIFF
[2016-10-25] MEDS: VANCOMYCIN 1,000 MG/NS 250 ML IV SCH ×2 (04:36)
[2016-10-25 04:59] LABS: BICARBONATE 23.6 MEQ/L (21.0-32.0); POTASSIUM 4.3 MEQ/L (3.5-5.1)
[2016-10-25 05:04] LABS: INDIRECT BILIRUBIN 0.9 MG/DL (0.0-0.8); TOTAL BILIRUBIN ADULT 4.6 MG/DL (0.2-1.0); VANCOMYCIN TROUGH 2.9 MCG/ML (5.0-10.0)
[2016-10-25 05:12] LABS: BANDS 27 % (0-6); CORRECTED NUCLEATED RBC 1 /100 WBC (0-0); EOSINOPHILS 3 % (0-4); METAMYELOCYTES 1 % (0-1); NEUTROPHIL # MANUAL DIFF 2.5 TH/MM3 (1.8-7.7); POLYS (SEG NEUTROPHILS) 49 % (16-70); SCAN/DIFF FINAL DIFF MANUAL; WBC DIFF SAMPLE 100
[2016-10-25 05:14] LABS: DOHLE BODIES PRESENT (NONE SEEN); PLATELET ESTIMATE SMEAR NORMAL (NORMAL); PLATELET MORPHOLOGY NORMAL (NORMAL); TOXIC VACUOLATION PRESENT (NONE SEEN)
[2016-10-25 05:20] LABS: ACANTHOCYTES OCC (NORMAL)
[2016-10-25] MEDS: INSULIN ASPART SUPPLEMENTAL SCALE SQ SCH ×4 (06:00→21:00)
--- NOTE | 2016-10-25 07:53 | MB ---
cc: ALEAH CENTENO M.D. DATE OF CONSULTATION 10/24/2016 REASON FOR CONSULTATION Possible acute bleeding from the abdominoplasty wound. CONSULT REQUESTED BY Dr. Camacho Ramey HISTORY This is a 61-year-old white female who has been admitted to the [facility] through the emergency room on October 22 2016. She came in with a history of having had bilateral brachioplasty and abdominoplasty done October 10 in [place]. She apparently had been having fever, chills and rigors off an on since the surgery. Last week she took a fall tripping over a dog in the house and had a dehiscence of wound under her right shoulder axillary area. She has a history of rotator cuff tear on the right side as well in the past. The patient went back to her plastic surgeon in [place], was examined and was advised to wash the area with soap and water or saline and keep it open and packed. She was not placed on an antibiotic as per the history. The patient returned back home in the [facility] and the patient experienced fever with a temperature of 104 at home on October 22. Upon specific questioning, she said that the temperature was taken with a thermometer and it was 104.0 temperature and NOT 100.4. The patient then states that she was still running a temperature in the range of 102.4 in the emergency room when she came in. These numbers are not verified by myself. The patient was feeling tired and weak all along. She says that she has been just about the same even after the admission with very minimal improvement in the way she feels. The current problems include the open wound under the right axilla. There is also some dehiscence of wound on the left axilla going on at the same time. The wound on the right axilla has grown MRSA. It had drainage when originally assessed a couple of days back. Currently, the wound still has some odor, but not as much drainage. The second more acute problem that has started is significant swelling of the dressing around the abdominoplasty on her right side. Dr. Ramey thought that it was acute bleeding. The patient has dropped her hemoglobin from 8.5 on admission to 7.1. The patient is actually receiving blood transfusion as of this morning. The patient otherwise does not have any acute septic or hemorrhagic stroke type of picture. She has been stable on the surgical floor. Further history includes that she has managed to lose weight to the tune of 170 pounds approximately 10 years back. She did not have any gastric bypass or any lap band. She did the weight loss on her own. Recently, the history was reviewed from the chart that includes: 1. Hypertension 2. Diabetes mellitus 3. Hypothyroidism 4. History of depression. 5. 6. Blepharoplasty 7. Breast reconstruction 8. The recent brachioplasty and abdominoplasty. MEDICATIONS The listed medications include: 1. Aspirin 2. Atenolol 3. Enalapril 4. Hydrochlorothiazide 5. Levothyroxine 6. Metformin 7. Timolol 8. Effexor 9. Tanzeum 10. Vitamin D 11. Chelated calcium ALLERGIES The listed allergies are negative. No allergies to medications. SOCIAL HISTORY History includes half pack per day smoking. The patient has a long history of smoking. PHYSICAL EXAM The examination shows a 61-year-old white female in surgical bed setting. She is not acutely short of breath. She is slightly tachycardiac. The body feels normal to touch. The temperature was not taken. GENERAL: The general examination is grossly remarkable only for a patient looking tired, but otherwise stable. The local examination of the axillary area on the right side showed a small gauze 4x4 packing in the wound itself that is drained with some serous slightly green discharge. The rest of the incision seems to be holding well on the immediate arm side. The left axilla has a smaller dressing. This area was covered from the abdominal area. ABDOMEN: The local examination of the abdominal area shows a fairly swollen abdomen with a palpable fluid collection under the abdominoplasty flap. The umbilical suture line and the umbilical surgical suture line is still holding. It is actually with a Dermabond type of skin glue. No actual sutures. The original lower abdominal line is again covered with Steri-Strips and surgical glue. The right side Steri-Strips have come off. There is a continuous brownish black liquid oozing out of the lateral aspect. It is more of a liquefying hematoma/seroma mixture rather than in the active fresh red bleeding. There are no clots noted on the dressing. The volume of the discharge noted on the dressing is approximately 40-50 cc soaking about three full packs of 4x4s. These were removed. The abdomen does not have any obvious tenderness. There is no acute cellulitis noted on the flap itself. The Steri-Strips on the remaining incisions were removed and that there is a small amount of blistering and necrotic edges noted, but no obvious adhesions. The approximate extent of the seroma is from end to end against the lower horizontal incision line. It extends approximately an inch to an inch and a half above the umbilical position. The patient is in approximately 30 degrees head elevation when examined. RECOMMENDATIONS The patient and the family members present were advised that currently the problem appears to be a collection of old blood that may have been present since the surgery over time and that the serous fluid collection is probably a secondary response to the presence of blood clots under the flap. In the absence of active ongoing bleeding, the current recommendation is to put in a drain and remove the existing fluid collection at the same time continue with the blood transfusions to stabilize her from the medical standpoint. The patient may still need a future surgery in case of any change to active fresh bleeding in the surgical sites. The patient was explained her current laboratory values. She is okay with the blood transfusions. MRSA that has been growing from the right axillary wound are being treated with Zosyn IV and at the present time, the fluid recovered from the abdomen does not seem to have any acute purulence obvious. The procedure was carried out at the bedside with the patient's permission both with myself and Dr. Chapa. The sterile dressing, a 10 mm flat drain and sterile supplies were brought to the room, patient's consent was taken. The area was prepped on the patient's right side around the area where the leakage was started. A small area was anesthetized on the lower part of the flap. The incision was carefully opened spreading the scissors points and it allowed free drainage of the blackish brown seroma of fluid. The Mario-Montoya drain was inserted easily through the opening into the pocket. It was advanced approximately 4 inches beyond the hub itself to allow it to go as far as possible across the midline. The drain was secured with nylon sutures to the skin. The first Mario-Montoya bulb was attached and Bactrim was turned on. A couple of bulb volume filled rather quickly and were emptied. Once the flow slowed down in the drain itself, approximately 40 cc of air was injected back through the tubing to break the vacuum inside and the patient was turned towards the right side down. A much easier return of the irrigating fluid was obtained easily both through the Mario-Montoya bulb and getting free leakage around the drain itself was obtained. A total of approximately 400-500 cc of fluid estimated was removed. The area was cleaned and a sterile dressing was applied. The patient will be given an abdominal binder again once we obtained a clean abdominal binder. The patient was advised to stay n.p.o. for the next several hours while actually retaining Mario-Montoya bulb is being monitored. If there is no acute active bleeding noted, she can be given dinner tonight. The patient will continue under the IV antibiotics that she is currently receiving. She will also be followed up while she is in the hospital with my colleague Dr. Chapa as I will be leaving going out of town for four weeks starting in a couple of days. The axillary wound will also be addressed by Dr. Chapa. The patient will continue to receive the blood transfusion until the hemoglobin level has been brought back to at least 9-10. Further care will continue with the help of Dr. Ramey and his team. We will try and retrieve the lab value before her abdominoplasty brachioplasty surgery possible from [place]. Thank you for this consultation. signed, not fully reviewed MD FREDRICK Capellan/KENDALL /7:03 PM /7:19 AM IFEANYI
[2016-10-25 08:00] VITALS: BP 150/71; PULSE 65; RESP 17; TEMP 97.2; O2SAT 97
[2016-10-25] MEDS: POVIDONE IODINE 10% SOLN 480 ML BTL TOPICAL SCH (09:00)
[2016-10-25] MEDS ORDERED: ATENOLOL 50 MG TAB PO SCH (09:00)
[2016-10-25] MEDS: VENLAFAXINE HCL XR 75 MG CAP PO SCH (09:07)
[2016-10-25] MEDS: ASPIRIN EC 81 MG TABEC PO SCH (09:07)
[2016-10-25] MEDS: LEVOTHYROXINE SODIUM 112 MCG TAB PO SCH (09:07)
[2016-10-25] MEDS: POTASSIUM CHLORIDE 20 MEQ CONTROLLED RELEASE TAB PO SCH ×2 (09:08→20:47)
[2016-10-25] MEDS: TIMOLOL MALEATE 0.5% OPHT SOLN 5 ML BTL EACH EYE SCH ×2 (09:09→21:00)
[2016-10-25] MEDS: SODIUM HYPOCHLORITE 0.25% 500 ML BTL TOPICAL SCH (09:09)
[2016-10-25] MEDS: ACETAMINOPHEN/HYDROcodone 325 MG/5 MG TAB PO PRN ×2 (10:36→21:00)
[2016-10-25] MEDS: ONDANSETRON HCL 4 MG/2 ML VIAL IV PUSH PRN ×2 (10:38→21:01)
[2016-10-25 12:00] VITALS: BP 132/63; PULSE 65; RESP 17; TEMP 98.3; O2SAT 94
[2016-10-25] MEDS: VANCOMYCIN INJ 1,750 MG in SODIUM CHLORID 0.9% 500 ML INJ 500 ML IV SCH ×2 (12:09→23:58)
--- NOTE | 2016-10-25 12:22 | HHI.PR ---
Subjective Remarks Pt c/o RLQ pain. Pt able to tolerate a small amount of breakfast. Pt denies n/v Objective Vitals Vital Signs Date Time Temp Pulse Resp B/P Pulse Ox O2 Delivery O2 Flow Rate FiO2 10/25/16 08:00 97.2 65 17 150/71 97 10/25/16 00:00 97.6 76 18 160/70 93 10/24/16 20:00 98.8 76 18 168/74 96 10/24/16 18:01 93 Nasal Cannula 2.00 10/24/16 16:30 98.1 78 16 118/58 94 10/24/16 16:00 98.8 74 16 126/60 93 10/24/16 15:45 98.8 74 16 126/60 93 10/24/16 14:28 Nasal Cannula 2.00 10/24/16 12:30 98.1 71 16 129/60 97 10/24/16 12:15 99.2 72 16 116/56 97 10/24/16 10/24/16 10/25/16 15:00 23:00 07:00 Intake Total 540 ml 480 ml 807 ml Output Total 600 ml 530 ml 120 ml Balance -60 ml -50 ml 687 ml Intake Oral 540 ml 480 ml 240 ml IV Total 567 ml Output Urine Total 450 ml Drainage Total 600 ml 80 ml 120 ml # Voids 1 2 # Bowel Movements 0 0 0 Result Diagram: 10/25/16 0345 10/25/16 0345 Imaging Last Impressions Abdomen Ultrasound 10/24/16 1400 Signed Impressions: Service Date/Time: Monday, October 24, 2016 14:14 - CONCLUSION: Nonspecific hepatomegaly. No focal hepatic lesion or evidence of biliary obstruction. Previous cholecystectomy. Darrion Bills MD Chest X-Ray 10/22/16 1619 Signed Impressions: Service Date/Time: Saturday, October 22, 2016 17:12 - CONCLUSION: The lungs are clear. Geovany Strong MD Upper Extremity CT 10/22/16 0000 Signed Impressions: Service Date/Time: Saturday, October 22, 2016 19:40 - CONCLUSION: Soft tissue induration, skin thickening, and subcutaneous collections of gas in the tissues adjacent to the medial armpit. No drainable fluid collections seen. Geovany Strong MD Objective Remarks GENERAL: This is a well-nourished, well-developed patient, in no apparent distress. CARDIOVASCULAR: Regular rate and rhythm without murmurs, gallops, or rubs. RESPIRATORY: Clear to auscultation. Breath sounds equal bilaterally. No wheezes , rales, or rhonchi. GASTROINTESTINAL: positive BS x4, no g/r/r, tender at RLQ MUSCULOSKELETAL: Extremities without clubbing, cyanosis, or edema. NEURO: Alert & Oriented x4 to person, place, time, situation. Moves all ext x4 skin: large dehisced wound at right axilla with packing, small dehisced wound at right axilla blood oozing from right side of abdominal wound with dressing and abdominal binder saturated. A/P Problem List: (1) Post op infection Status: Acute Plan: - comgmt with ID & Plastics - Pt is 61 yo with hx morbid obesity, dm, htn - She underwent brachioplasty sam and abdomenplasty 10/10 in [place]. - She fell over the dog 1 week prior to [facility] admission and the axillary surgical wound both ripped open - worse on the right side. - She followed up once with her surgeon and was supposed to go back Monday - Pt presented to [facility] with several days of f/c/rigors and likely sepsis. - Upon initial presentation, The right axillary wound had alot of foul smelling drainage. - wound cx from 10/22 growing MRSA - Vancomycin (10/22 - present) - Zosyn (10/22 - 10/24) - Drainage of abdominal seroma and placement of JENNIFER drain performed by Dr. Moss 10/24/16 - 170ml of drainage from JENNIFER drain for 10/25/16 so far. - RLQ tender today. No BM in several days - Abd US (10/24/16) does NOT show appendicitis, but NOT preferred test - will obtain KUB - doubt appendicitis d/t clinical presentation and history - consider non-contrast CT - Case d/w Dr. Chapa (10/25/16). He will round on pt this afternoon & we will discuss the case again afterwards - pain likely d/t drainage of seroma and placement of JENNIFER drain - Case d/w pt's surgeon, Dr. Hernandez ([id number]) on 10/24/16 - wound care (2) Hyponatremia Status: Acute Plan: - stable - observe (3) Anemia, blood loss Status: Acute Plan: - improved - per pt's surgeon Dr. Hernandez, her pre-op CBC showed Hg 14 with HCT 43 - see above - pt received 2 units PRBCs - Pt's Hg increased 7.1 (10/24/16) and 9.0 (10/25/16) (4) DM (diabetes mellitus) Status: Chronic Plan: - ssi (5) HTN (hypertension) Status: Chronic Plan: - blood pressure readings increased from 10/24/16 - increase atenolol back to 100mg daily - resume enalapril 20mg BID - continue to hold HCTZ (6) Depressed Status: Chronic (7) Elevated transaminase level Status: Acute Plan: - d/t sepsis? - Abdominal US (10/24/16) --> NO biliary obstruction, previous cholecystectomy Problem Qualifiers (1) DM (diabetes mellitus): Qualified Code: E11.8 - Type 2 diabetes mellitus with complication, without long-term current use of insulin (2) HTN (hypertension): Qualified Code: I10 - Essential hypertension (3) Depressed: Qualified Code: F32.9 - Depression, unspecified depression type Maicol Ramey DO Oct 25, 2016 12:22
[2016-10-25] MEDS: ENALAPRIL MALEATE 10 MG TAB PO SCH ×2 (13:09→20:47)
[2016-10-25] MEDS ORDERED: RESP: ALBUTEROL 2.5 MG/IPRATROPIUM 0.5 MG NEB (PRN) NEB (13:30)
--- NOTE | 2016-10-25 14:17 | HHI.IDPN ---
Subjective Subjective Remarks Notes reviewed Temps ok Fluid from abdominoplasty sent for C/S - G/S (+) GPC Putting out a lot from JENNIFER drain Received 2 units PRBC yesterday Antibiotics Vancomycin Lines PIV Past Medical History Hypertension Diabetes Depression Hypothyroidism Obesity Past Surgical History section Blepharolplasty Breast reconstruction Bilateral brachioplasty and abdominoplasty. Allergies: Coded Allergies: *MDRO Multi-Drug Resistant Organism (Verified Adverse Reaction, Unknown, MRSA, 10/24/16) MRSA (wound) - 10/22/16 Objective . Vital Signs Date Time Temp Pulse Resp B/P Pulse Ox O2 Delivery O2 Flow Rate FiO2 10/25/16 12:00 98.3 65 17 132/63 94 10/25/16 08:00 97.2 65 17 150/71 97 10/25/16 00:00 97.6 76 18 160/70 93 10/24/16 20:00 98.8 76 18 168/74 96 10/24/16 18:01 93 Nasal Cannula 2.00 10/24/16 16:30 98.1 78 16 118/58 94 10/24/16 16:00 98.8 74 16 126/60 93 10/24/16 15:45 98.8 74 16 126/60 93 10/24/16 14:28 Nasal Cannula 2.00 10/24/16 10/24/16 10/25/16 15:00 23:00 07:00 Intake Total 540 ml 480 ml 807 ml Output Total 600 ml 530 ml 120 ml Balance -60 ml -50 ml 687 ml Intake Oral 540 ml 480 ml 240 ml IV Total 567 ml Output Urine Total 450 ml Drainage Total 600 ml 80 ml 120 ml # Voids 1 2 # Bowel Movements 0 0 0 . Laboratory Tests Test 10/24/16 10/24/16 10/25/16 05:00 19:10 03:45 White Blood Count 3.4 TH/MM3 2.8 TH/MM3 3.2 TH/MM3 Red Blood Count 2.58 MIL/MM3 3.02 MIL/MM3 3.17 MIL/MM3 Hemoglobin 7.1 GM/DL 8.9 GM/DL 9.0 GM/DL Hematocrit 21.6 % 25.4 % 27.1 % Mean Corpuscular Volume 83.8 FL 84.2 FL 85.4 FL Mean Corpuscular Hemoglobin 27.7 PG 29.6 PG 28.2 PG Mean Corpuscular Hemoglobin 33.0 % 35.1 % 33.1 % Concent Red Cell Distribution Width 15.9 % 16.3 % 15.9 % Platelet Count 318 TH/MM3 374 TH/MM3 349 TH/MM3 Mean Platelet Volume 7.2 FL 8.1 FL 7.4 FL Neutrophils (%) (Auto) 91.8 % % % Lymphocytes (%) (Auto) 3.1 % % % Monocytes (%) (Auto) 4.0 % % % Eosinophils (%) (Auto) 0.9 % % % Basophils (%) (Auto) 0.2 % % % Neutrophils # (Auto) 3.1 TH/MM3 TH/MM3 TH/MM3 Lymphocytes # (Auto) 0.1 TH/MM3 TH/MM3 TH/MM3 Monocytes # (Auto) 0.1 TH/MM3 TH/MM3 TH/MM3 Eosinophils # (Auto) 0.0 TH/MM3 TH/MM3 TH/MM3 Basophils # (Auto) 0.0 TH/MM3 TH/MM3 TH/MM3 CBC Comment AUTO DIFF AUTO DIFF AUTO DIFF Differential Total Cells 100 100 100 Counted Neutrophils % (Manual) 66 % 71 % 49 % Band Neutrophils % 25 % 14 % 27 % Lymphocytes % 5 % 11 % 15 % Monocytes % 3 % 4 % 5 % Eosinophils % 1 % 3 % Neutrophils # (Manual) 3.1 TH/MM3 2.4 TH/MM3 2.5 TH/MM3 Differential Comment FINAL DIFF FINAL DIFF FINAL DIFF MANUAL MANUAL MANUAL Platelet Estimate NORMAL NORMAL NORMAL Platelet Morphology Comment NORMAL NORMAL NORMAL Metamyelocytes 1 % Nucleated Red Blood Cells 1 /100 WBC Toxic Vacuolation PRESENT Dohle Bodies PRESENT Acanthocytes OCC Laboratory Tests Test 10/24/16 10/25/16 05:00 03:45 Sodium Level 131 MEQ/L 131 MEQ/L Potassium Level 3.8 MEQ/L 4.3 MEQ/L Chloride Level 99 MEQ/L 99 MEQ/L Carbon Dioxide Level 23.6 MEQ/L 23.6 MEQ/L Anion Gap 8 MEQ/L 8 MEQ/L Blood Urea Nitrogen 14 MG/DL 17 MG/DL Creatinine 0.44 MG/DL 0.42 MG/DL Estimat Glomerular Filtration 144 ML/MIN 152 ML/MIN Rate Random Glucose 92 MG/DL 100 MG/DL Calcium Level 7.0 MG/DL 7.6 MG/DL Protein Corrected Calcium 7.9 MG/DL Magnesium Level 1.7 MG/DL 2.0 MG/DL Total Bilirubin 4.5 MG/DL 4.6 MG/DL Direct Bilirubin 3.7 MG/DL 3.7 MG/DL Indirect Bilirubin 0.8 MG/DL 0.9 MG/DL Aspartate Amino Transf 45 U/L 17 U/L (AST/SGOT) Alanine Aminotransferase 84 U/L 58 U/L (ALT/SGPT) Alkaline Phosphatase 345 U/L 375 U/L Total Protein 5.4 GM/DL 5.7 GM/DL Albumin 2.0 GM/DL 1.9 GM/DL Microbiology Date/Time Procedure Status Source Growth 10/22/16 16:30 Influenza Types A,B Antigen (DAMEON) - Final Complete Nasal Washing NEGATIVE FOR FLU A AND B ANTIGEN.... 10/22/16 16:30 Gram Stain - Final Complete Wound Arm 10/22/16 16:30 Wound Culture - Final Complete S. Aureus Mrsa 10/22/16 17:20 Aerobic Blood Culture - Preliminary Resulted Blood Peripheral NO GROWTH IN 3 DAYS 10/22/16 17:20 Anaerobic Blood Culture - Preliminary Resulted Blood Peripheral NO GROWTH IN 3 DAYS 10/22/16 17:25 Aerobic Blood Culture - Preliminary Resulted Blood Peripheral NO GROWTH IN 3 DAYS 10/22/16 17:25 Anaerobic Blood Culture - Preliminary Resulted Blood Peripheral NO GROWTH IN 3 DAYS 10/24/16 20:00 Gram Stain - Final Resulted Fluid Other 10/24/16 20:00 Body Fluid Culture - Preliminary Resulted S. Aureus Mrsa Imaging Abdomen Ultrasound 10/24/16 1400 Signed Impressions: Service Date/Time: Monday, October 24, 2016 14:14 - CONCLUSION: Nonspecific hepatomegaly. No focal hepatic lesion or evidence of biliary obstruction. Previous cholecystectomy. Darrion Bills MD Chest X-Ray 10/22/16 1619 Signed Impressions: Service Date/Time: Saturday, October 22, 2016 17:12 - CONCLUSION: The lungs are clear. Geovany Strong MD Upper Extremity CT 10/22/16 0000 Signed Impressions: Service Date/Time: Saturday, October 22, 2016 19:40 - CONCLUSION: Soft tissue induration, skin thickening, and subcutaneous collections of gas in the tissues adjacent to the medial armpit. No drainable fluid collections seen. Geovany Strong MD Physical Exam GENERAL: awake and alert, not in respiratory distress. SKIN: Warm and dry. No generalized rash, no ecchymoses and no evidence of embolic lesions. HEENT: No petechia or hemorrhage. No scleral icterus. No injection or drainage. Nose without bleeding or purulent nasal discharge. Mucous membranes pink and moist. No oral lesions noted. No exudate. No oral thrush. NECK: Trachea midline. Supple and not tender, no meningeal signs CARDIOVASCULAR: Regular rate and rhythm. No murmurs, rubs or gallops heard RESPIRATORY: Clear to auscultation. Breath sounds equal bilaterally. No rales , wheezing or rhonchi ABDOMEN: Flat, has the abdominoplasty incision, with very minimal erythema, fairly dry except on R lateral area that now has a JENNIFER drain with dark red blood coming out. Bowel sounds present and normoactive. No guarding. No rebound. No organomegaly. EXTREMITIES: No clubbing, cyanosis, or pedal edema. No joint effusion, has good ROM. No calf tenderness. Well perfused and warm. RUE - dry incision in the upper arm, and there is wound dehiscence in R axilla that is about 2 inch diameter, no purulence noted. LUE - has dry incision, steristrips still in place, and there is a smaller dehiscence that is about 1 inch x 1/4 inch with packing NEUROLOGICAL: Awake and alert. Cranial nerves grossly intact. Motor grossly within normal limits. PSYCHIATRIC: Normal affect, calm and cooperative. LINE: No evidence of infection Assessment & Plan Remarks IMPRESSION Sepsis on presentation due to post-op wound infections sam brachioplasty, C/S MRSA - fevers better - now developing neutropenia, ?meds Wound dehiscence both axilla incision S/P brachioplasty, C/S MRSA S/P abdominoplasty with postop hematoma Abnormal LFTs, ?due to sepsis - no N/V - no pain except over the incisions RECOMMENDATION Continue IV Vancomycin Follow WBC Follow temps Follow C/S Follow LFT Monitor progress Shavonne Marlow MD Oct 25, 2016 14:17
--- NOTE | 2016-10-25 14:59 | RADRPT ---
EXAM DATE/TIME: 10/25/2016 13:26 [facility] COMPARISON: No previous studies available for comparison. INDICATIONS : Patient has had abdomen pain since her lapband procedure. Pain on right side. MEDICAL HISTORY : None. SURGICAL HISTORY : None. ENCOUNTER: Initial ACUITY: 1 day PAIN SCORE: 8/10 LOCATION: Right Abdomen. FINDINGS: Multiple hemoclips seen in the right epigastric region. Mario-Montoya drain lower abdomen. Gas in n ondistended loops of small bowel. There is a solitary loop of left transverse colon containing gas a nd measuring up to 6.3 cm in width. The right colon is not distended. The visualized lower lungs ar e clear. CONCLUSION: No dilated loops of small bowel seen. Geovany Strong MD on October 25, 2016 at 14:56 Board Certified Radiologist. This report was verified electronically.
[2016-10-25 16:00] VITALS: BP 128/62; PULSE 67; RESP 18; TEMP 97.7; O2SAT 95
[2016-10-25] MEDS ORDERED: MAGNESIUM HYDROXIDE SUSP 30 ML CUP PO PRN (16:15)
--- NOTE | 2016-10-25 16:33 | PD.PLAS.PN ---
Subjective Remarks The patient reports feeling about the same. Vital Signs Date Time Temp Pulse Resp B/P Pulse Ox O2 Delivery O2 Flow Rate FiO2 10/25/16 12:00 98.3 65 17 132/63 94 10/25/16 08:00 97.2 65 17 150/71 97 10/25/16 00:00 97.6 76 18 160/70 93 10/24/16 20:00 98.8 76 18 168/74 96 10/24/16 18:01 93 Nasal Cannula 2.00 10/24/16 16:30 98.1 78 16 118/58 94 I/O 10/24/16 10/24/16 10/24/16 10/25/16 10/25/16 10/25/16 07:00 15:00 23:00 07:00 15:00 23:00 Intake Total 918 ml 540 ml 480 ml 807 ml 1080 ml Output Total 600 ml 530 ml 120 ml 120 ml Balance 918 ml -60 ml -50 ml 687 ml 960 ml Intake Oral 240 ml 540 ml 480 ml 240 ml 450 ml IV Total 678 ml 567 ml 630 ml Output Urine Total 450 ml Drainage Total 600 ml 80 ml 120 ml 120 ml # Voids 2 1 2 1 # Bowel Movements 0 0 0 0 Laboratory Tests Test 10/24/16 10/25/16 19:10 03:45 White Blood Count 2.8 3.2 Red Blood Count 3.02 3.17 Hemoglobin 8.9 9.0 Hematocrit 25.4 27.1 Mean Corpuscular Volume 84.2 85.4 Mean Corpuscular Hemoglobin 29.6 28.2 Mean Corpuscular Hemoglobin 35.1 33.1 Concent Red Cell Distribution Width 16.3 15.9 Platelet Count 374 349 Mean Platelet Volume 8.1 7.4 Neutrophils (%) (Auto) Lymphocytes (%) (Auto) Monocytes (%) (Auto) Eosinophils (%) (Auto) Basophils (%) (Auto) Neutrophils # (Auto) Lymphocytes # (Auto) Monocytes # (Auto) Eosinophils # (Auto) Basophils # (Auto) CBC Comment AUTO DIFF AUTO DIFF Differential Total Cells 100 100 Counted Neutrophils % (Manual) 71 49 Band Neutrophils % 14 27 Lymphocytes % 11 15 Monocytes % 4 5 Neutrophils # (Manual) 2.4 2.5 Differential Comment FINAL DIFF FINAL DIFF MANUAL MANUAL Platelet Estimate NORMAL NORMAL Platelet Morphology Comment NORMAL NORMAL Eosinophils % 3 Metamyelocytes 1 Nucleated Red Blood Cells 1 Toxic Vacuolation PRESENT Dohle Bodies PRESENT Acanthocytes OCC Sodium Level 131 Potassium Level 4.3 Chloride Level 99 Carbon Dioxide Level 23.6 Anion Gap 8 Blood Urea Nitrogen 17 Creatinine 0.42 Estimat Glomerular Filtration 152 Rate Random Glucose 100 Calcium Level 7.6 Magnesium Level 2.0 Total Bilirubin 4.6 Direct Bilirubin 3.7 Indirect Bilirubin 0.9 Aspartate Amino Transf 17 (AST/SGOT) Alanine Aminotransferase 58 (ALT/SGPT) Alkaline Phosphatase 375 Total Protein 5.7 Albumin 1.9 Vancomycin Level Trough 2.9 Date/Time Procedure Status Source Growth 10/24/16 20:00 Gram Stain - Final Resulted Fluid Other 10/24/16 20:00 Body Fluid Culture - Preliminary Resulted S. Aureus Mrsa 10/22/16 17:25 Aerobic Blood Culture - Preliminary Resulted Blood Peripheral NO GROWTH IN 3 DAYS 10/22/16 17:25 Anaerobic Blood Culture - Preliminary Resulted Blood Peripheral NO GROWTH IN 3 DAYS 10/22/16 16:30 Influenza Types A,B Antigen (DAMEON) - Final Complete Nasal Washing NEGATIVE FOR FLU A AND B ANTIGEN.... Result Diagram: 10/25/16 0345 10/25/16 0345 Exam Findings The patient has been out of bed. The drain continues to drain a diluted, but bloody fluid. The axilla appeared to be granulating. There is no evidence of cellulitis in the axilla or the abdominal skin. The culture from the draining abdominal fluid grew out MRSA. Impression: (1) Post op infection Plan Impression: The patient appears to be improving slowly. Plan: The patient should continue on wound care to both axilla. In addition, we will monitor the drainage. Kate Chapa MD Oct 25, 2016 16:33
[2016-10-25 20:00] VITALS: BP 162/82; PULSE 72; RESP 20; TEMP 99.1; O2SAT 95
[2016-10-25 23:56] VITALS: BP 152/71; PULSE 70; RESP 18; TEMP 98.8; O2SAT 94
[2016-10-25] MEDS: ENOXAPARIN SODIUM 30 MG/0.3 ML SYRINGE SQ SCH (23:58)
[2016-10-26] MEDS: INSULIN ASPART SUPPLEMENTAL SCALE SQ SCH ×4 (05:48→21:00)
[2016-10-26 08:00] VITALS: BP 142/67; PULSE 68; RESP 18; TEMP 96.9; O2SAT 94
[2016-10-26] MEDS: VENLAFAXINE HCL XR 75 MG CAP PO SCH (08:31)
[2016-10-26] MEDS: LEVOTHYROXINE SODIUM 112 MCG TAB PO SCH (08:31)
[2016-10-26] MEDS: POTASSIUM CHLORIDE 20 MEQ CONTROLLED RELEASE TAB PO SCH ×2 (08:31→21:08)
[2016-10-26] MEDS: ASPIRIN EC 81 MG TABEC PO SCH (08:32)
[2016-10-26] MEDS: ATENOLOL 100 MG TAB PO SCH (08:32)
[2016-10-26] MEDS: POVIDONE IODINE 10% SOLN 480 ML BTL TOPICAL SCH (08:32)
[2016-10-26] MEDS: SODIUM HYPOCHLORITE 0.25% 500 ML BTL TOPICAL SCH (08:32)
[2016-10-26] MEDS: ENALAPRIL MALEATE 10 MG TAB PO SCH ×2 (08:32→21:08)
[2016-10-26] MEDS: TIMOLOL MALEATE 0.5% OPHT SOLN 5 ML BTL EACH EYE SCH ×2 (08:32→21:00)
[2016-10-26 11:21] LABS: BACTERIA, URINE RARE /hpf; BLOOD, URINE NEG (NEG); COMMENT (UR) CULT NOT INDICATED; CULTURE IF INDICATED CULT NOT INDICATED; GLUCOSE,URINE NEG (NEG); KETONE, URINE NEG (NEG); MUCUS URINE FEW /lpf (OCC); NITRITE,URINE NEG (NEG); SQUAMOUS EPITHELIAL CELL URINE 1 /hpf (0-5); TRANSITIONAL EPI CELLS, URINE <1 /hpf; URINE COLOR YELLOW (YELLW/STRAW)
[2016-10-26 12:00] VITALS: BP 157/80; PULSE 65; RESP 18; TEMP 98; O2SAT 96
[2016-10-26] MEDS: VANCOMYCIN INJ 1,750 MG in SODIUM CHLORID 0.9% 500 ML INJ 500 ML IV SCH (12:17)
--- NOTE | 2016-10-26 13:14 | PD.PLAS.PN ---
Subjective Remarks The patient is lying comfortably. She notes some new drainage from the left side of the wound. Objective Vital Signs Date Time Temp Pulse Resp B/P Pulse Ox O2 Delivery O2 Flow Rate FiO2 10/26/16 12:00 98.0 65 18 157/80 96 10/26/16 08:00 96.9 68 18 142/67 94 10/25/16 23:56 98.8 70 18 152/71 94 10/25/16 22:00 18 10/25/16 20:00 99.1 72 20 162/82 95 10/25/16 16:00 97.7 67 18 128/62 95 I/O 10/25/16 10/25/16 10/25/16 10/26/16 10/26/16 10/26/16 07:00 15:00 23:00 07:00 15:00 23:00 Intake Total 807 ml 1080 ml 240 ml 240 ml Output Total 120 ml 120 ml 65 ml 30 ml Balance 687 ml 960 ml 240 ml 175 ml -30 ml Intake Oral 240 ml 450 ml 240 ml 240 ml IV Total 567 ml 630 ml Drainage Total 120 ml 120 ml 65 ml 30 ml # Voids 2 1 1 2 # Bowel Movements 0 0 1 0 Laboratory Tests Test 10/26/16 11:00 Urine Color YELLOW Urine Turbidity HAZY Urine pH 7.0 Urine Specific [place] 1.018 Urine Protein TRACE Urine Glucose (UA) NEG Urine Ketones NEG Urine Occult Blood NEG Urine Nitrite NEG Urine Bilirubin NEG Urine Urobilinogen 2.0 Urine Leukocyte Esterase NEG Urine RBC 2 Urine WBC 5 Urine Squamous Epithelial 1 Cells Urine Transitional Epithelial <1 Cells Urine Bacteria RARE Urine Mucus FEW Microscopic Urinalysis Comment CULT NOT INDICATED Date/Time Procedure Status Source Growth 10/24/16 20:00 Gram Stain - Final Complete Fluid Other 10/24/16 20:00 Body Fluid Culture - Final Complete S. Aureus Mrsa 10/22/16 17:25 Aerobic Blood Culture - Preliminary Resulted Blood Peripheral NO GROWTH IN 4 DAYS 10/22/16 17:25 Anaerobic Blood Culture - Preliminary Resulted Blood Peripheral NO GROWTH IN 4 DAYS 10/22/16 16:30 Influenza Types A,B Antigen (DAMEON) - Final Complete Nasal Washing NEGATIVE FOR FLU A AND B ANTIGEN.... Result Diagram: 10/25/16 0345 10/25/16 0345 Exam Findings The abdominal wound is healing well. The drainage collected in the drain is more serosanguineous in color than the dark drainage from yesterday. Incision is mostly intact. There is a small (1cm) opening at the left side of the wound with thick drainage. The drain is in place on the right side. There is no erythema or evidence of cellulitis. There is no odor. Assessment and Plan Diagnosis: (1) Post op infection Assessment and Plan The wound is irrigated using a solution of injectable saline and Betadine (1:10) . Irrigation solution was drained from both open areas. The drain collection bulb was reapplied and wounds were dressed with abd pads and held in place with underwear. Discussed with RN. The exam, history, and the medical decision-making described in the above note were completed with the assistance of the mid-level provider. I reviewed and agree with the findings presented. I attest that I had a [id number] encounter with the patient on the same day, and personally performed and documented my assessment and findings in the medical record. Kate Chapa M.D. Patricia Segovia Oct 26, 2016 13:14
[2016-10-26] MEDS: ACETAMINOPHEN 325 MG TAB PO PRN (13:38)
--- NOTE | 2016-10-26 13:38 | HHI.PR ---
Subjective Remarks abdominal pain improved Objective Vitals Vital Signs Date Time Temp Pulse Resp B/P Pulse Ox O2 Delivery O2 Flow Rate FiO2 10/26/16 12:00 98.0 65 18 157/80 96 10/26/16 08:00 96.9 68 18 142/67 94 10/25/16 23:56 98.8 70 18 152/71 94 10/25/16 22:00 18 10/25/16 20:00 99.1 72 20 162/82 95 10/25/16 16:00 97.7 67 18 128/62 95 10/25/16 10/25/16 10/26/16 15:00 23:00 07:00 Intake Total 1080 ml 240 ml 240 ml Output Total 120 ml 65 ml Balance 960 ml 240 ml 175 ml Intake Oral 450 ml 240 ml 240 ml IV Total 630 ml Drainage Total 120 ml 65 ml # Voids 1 1 2 # Bowel Movements 0 1 0 Result Diagram: 10/25/16 0345 10/25/16 0345 Imaging Last Impressions Abdomen X-Ray 10/25/16 0000 Signed Impressions: Service Date/Time: Tuesday, October 25, 2016 13:26 - CONCLUSION: No dilated loops of small bowel seen. Geovany Strong MD Abdomen Ultrasound 10/24/16 1400 Signed Impressions: Service Date/Time: Monday, October 24, 2016 14:14 - CONCLUSION: Nonspecific hepatomegaly. No focal hepatic lesion or evidence of biliary obstruction. Previous cholecystectomy. Darrion Bills MD Chest X-Ray 10/22/16 1619 Signed Impressions: Service Date/Time: Saturday, October 22, 2016 17:12 - CONCLUSION: The lungs are clear. Geovany Strong MD Upper Extremity CT 10/22/16 0000 Signed Impressions: Service Date/Time: Saturday, October 22, 2016 19:40 - CONCLUSION: Soft tissue induration, skin thickening, and subcutaneous collections of gas in the tissues adjacent to the medial armpit. No drainable fluid collections seen. Geovany Strong MD Objective Remarks GENERAL: This is a well-nourished, well-developed patient, in no apparent distress. CARDIOVASCULAR: Regular rate and rhythm without murmurs, gallops, or rubs. RESPIRATORY: Clear to auscultation. Breath sounds equal bilaterally. No wheezes , rales, or rhonchi. GASTROINTESTINAL: positive BS x4, no g/r/r, tender at RLQ MUSCULOSKELETAL: Extremities without clubbing, cyanosis, or edema. NEURO: Alert & Oriented x4 to person, place, time, situation. Moves all ext x4 skin: large dehisced wound at right axilla with packing, small dehisced wound at right axilla JENNIFER drain at right side of abdominal wound A/P Problem List: (1) Post op infection Status: Acute Plan: - comgmt with ID & Plastics - Pt is 61 yo with hx morbid obesity, dm, htn - She underwent brachioplasty sam and abdomenplasty 10/10 in [place]. - She fell over the dog 1 week prior to [place] admission and the axillary surgical wound both ripped open - worse on the right side. - She followed up once with her surgeon and was supposed to go back Monday - Pt presented to [place] with several days of f/c/rigors and likely sepsis. - Upon initial presentation, The right axillary wound had alot of foul smelling drainage. - wound cx from 10/22 growing MRSA - Vancomycin (10/22 - present) - Zosyn (10/22 - 10/24) - Drainage of abdominal seroma and placement of JENNIFER drain performed by Dr. Moss 10/24/16 - 95ml of drainage from JENNIFER drain for 10/26/16 so far. - continue current treatment plan - neutropenia, possible d/t abx - repeat CBC in AM - anticipate d/c to home in 1-2 days - Case d/w Dr. Chapa (10/25/16). - Case d/w pt's surgeon, Dr. Hernandez ([facility]) on 10/24/16 - wound care (2) Hyponatremia Status: Acute Plan: - stable - observe (3) Anemia, blood loss Status: Acute Plan: - improved - per pt's surgeon Dr. Hernandez, her pre-op CBC showed Hg 14 with HCT 43 - see above - pt received 2 units PRBCs - Pt's Hg increased 7.1 (10/24/16) and 9.0 (10/25/16) - repeat CBC in AM (4) DM (diabetes mellitus) Status: Chronic Plan: - ssi (5) HTN (hypertension) Status: Chronic Plan: - blood pressure readings increased from 10/24/16 - increase atenolol back to 100mg daily - resume enalapril 20mg BID - continue to hold HCTZ (6) Depressed Status: Chronic (7) Elevated transaminase level Status: Acute Plan: - d/t sepsis? - Abdominal US (10/24/16) --> NO biliary obstruction, previous cholecystectomy - repeat LFTs in AM Problem Qualifiers (1) DM (diabetes mellitus): Qualified Code: E11.8 - Type 2 diabetes mellitus with complication, without long-term current use of insulin (2) HTN (hypertension): Qualified Code: I10 - Essential hypertension (3) Depressed: Qualified Code: F32.9 - Depression, unspecified depression type Maicol Ramey DO Oct 26, 2016 13:38
--- NOTE | 2016-10-26 14:44 | HHI.IDPN ---
Subjective Subjective Remarks 61 Y/O female S/P sam brachial plasty and abdominoplasty, admitted with fevers and wound infection Notes reviewed Temps ok C/P abdominal pain aline when she tries to sit up Draining now on L lateral incision Fluid from abdominoplasty sent for C/S has MRSA also Putting out a lot from JENNIFER drain Received 2 units PRBC yesterday Antibiotics Vancomycin Lines PIV Past Medical History Hypertension Diabetes Depression Hypothyroidism Obesity Past Surgical History section Blepharolplasty Breast reconstruction Bilateral brachioplasty and abdominoplasty. Allergies: Coded Allergies: *MDRO Multi-Drug Resistant Organism (Verified Adverse Reaction, Unknown, MRSA, 10/24/16) MRSA (wound) - 10/22/16 Objective . Vital Signs Date Time Temp Pulse Resp B/P Pulse Ox O2 Delivery O2 Flow Rate FiO2 10/26/16 12:00 98.0 65 18 157/80 96 10/26/16 08:00 96.9 68 18 142/67 94 10/25/16 23:56 98.8 70 18 152/71 94 10/25/16 22:00 18 10/25/16 20:00 99.1 72 20 162/82 95 10/25/16 16:00 97.7 67 18 128/62 95 10/25/16 10/25/16 10/26/16 15:00 23:00 07:00 Intake Total 1080 ml 240 ml 240 ml Output Total 120 ml 65 ml Balance 960 ml 240 ml 175 ml Intake Oral 450 ml 240 ml 240 ml IV Total 630 ml Drainage Total 120 ml 65 ml # Voids 1 1 2 # Bowel Movements 0 1 0 . Laboratory Tests Test 10/24/16 10/25/16 19:10 03:45 White Blood Count 2.8 TH/MM3 3.2 TH/MM3 Red Blood Count 3.02 MIL/MM3 3.17 MIL/MM3 Hemoglobin 8.9 GM/DL 9.0 GM/DL Hematocrit 25.4 % 27.1 % Mean Corpuscular Volume 84.2 FL 85.4 FL Mean Corpuscular Hemoglobin 29.6 PG 28.2 PG Mean Corpuscular Hemoglobin 35.1 % 33.1 % Concent Red Cell Distribution Width 16.3 % 15.9 % Platelet Count 374 TH/MM3 349 TH/MM3 Mean Platelet Volume 8.1 FL 7.4 FL Neutrophils (%) (Auto) % % Lymphocytes (%) (Auto) % % Monocytes (%) (Auto) % % Eosinophils (%) (Auto) % % Basophils (%) (Auto) % % Neutrophils # (Auto) TH/MM3 TH/MM3 Lymphocytes # (Auto) TH/MM3 TH/MM3 Monocytes # (Auto) TH/MM3 TH/MM3 Eosinophils # (Auto) TH/MM3 TH/MM3 Basophils # (Auto) TH/MM3 TH/MM3 CBC Comment AUTO DIFF AUTO DIFF Differential Total Cells 100 100 Counted Neutrophils % (Manual) 71 % 49 % Band Neutrophils % 14 % 27 % Lymphocytes % 11 % 15 % Monocytes % 4 % 5 % Neutrophils # (Manual) 2.4 TH/MM3 2.5 TH/MM3 Differential Comment FINAL DIFF FINAL DIFF MANUAL MANUAL Platelet Estimate NORMAL NORMAL Platelet Morphology Comment NORMAL NORMAL Eosinophils % 3 % Metamyelocytes 1 % Nucleated Red Blood Cells 1 /100 WBC Toxic Vacuolation PRESENT Dohle Bodies PRESENT Acanthocytes OCC Laboratory Tests Test 10/25/16 03:45 Sodium Level 131 MEQ/L Potassium Level 4.3 MEQ/L Chloride Level 99 MEQ/L Carbon Dioxide Level 23.6 MEQ/L Anion Gap 8 MEQ/L Blood Urea Nitrogen 17 MG/DL Creatinine 0.42 MG/DL Estimat Glomerular Filtration 152 ML/MIN Rate Random Glucose 100 MG/DL Calcium Level 7.6 MG/DL Magnesium Level 2.0 MG/DL Total Bilirubin 4.6 MG/DL Direct Bilirubin 3.7 MG/DL Indirect Bilirubin 0.9 MG/DL Aspartate Amino Transf 17 U/L (AST/SGOT) Alanine Aminotransferase 58 U/L (ALT/SGPT) Alkaline Phosphatase 375 U/L Total Protein 5.7 GM/DL Albumin 1.9 GM/DL Microbiology Date/Time Procedure Status Source Growth 10/24/16 20:00 Gram Stain - Final Complete Fluid Other 10/24/16 20:00 Body Fluid Culture - Final Complete S. Aureus [facility] Imaging Abdomen Ultrasound 10/24/16 1400 Signed Impressions: Service Date/Time: Monday, October 24, 2016 14:14 - CONCLUSION: Nonspecific hepatomegaly. No focal hepatic lesion or evidence of biliary obstruction. Previous cholecystectomy. Darrion Bills MD Chest X-Ray 10/22/16 1619 Signed Impressions: Service Date/Time: Saturday, October 22, 2016 17:12 - CONCLUSION: The lungs are clear. Geovany Strong MD Upper Extremity CT 10/22/16 0000 Signed Impressions: Service Date/Time: Saturday, October 22, 2016 19:40 - CONCLUSION: Soft tissue induration, skin thickening, and subcutaneous collections of gas in the tissues adjacent to the medial armpit. No drainable fluid collections seen. Geovany Strong MD Physical Exam GENERAL: awake and alert, not in respiratory distress. SKIN: Warm and dry. No generalized rash, no ecchymoses and no evidence of embolic lesions. HEENT: No petechia or hemorrhage. No scleral icterus. No injection or drainage. Nose without bleeding or purulent nasal discharge. Mucous membranes pink and moist. No oral lesions noted. No exudate. No oral thrush. NECK: Trachea midline. Supple and not tender, no meningeal signs CARDIOVASCULAR: Regular rate and rhythm. No murmurs, rubs or gallops heard RESPIRATORY: Clear to auscultation. Breath sounds equal bilaterally. No rales , wheezing or rhonchi ABDOMEN: Flat, has the abdominoplasty incision, with very minimal erythema, R lateral area that now has a JENNIFER drain with serosanguineous fluid, and now draining R lateral incision. Distended abdomen, no crepitus. Bowel sounds present and normoactive. No guarding. No rebound. No organomegaly. EXTREMITIES: No clubbing, cyanosis, or calf tenderness. Seems to have some developing pedal edema. Incisions in R arm dry and there is wound dehiscence in R axilla that is about 2 inch diameter, no purulence noted. LUE - has dry incision, steristrips still in place, and there is a smaller dehiscence that is about 1 inch x 1/4 inch with packing NEUROLOGICAL: Awake and alert. Cranial nerves grossly intact. Motor grossly within normal limits. PSYCHIATRIC: Normal affect, calm and cooperative. LINE: No evidence of infection Assessment & Plan Remarks IMPRESSION Sepsis on presentation due to post-op wound infections sam brachioplasty, C/S MRSA - fevers better - now developing neutropenia, ?meds Wound dehiscence both axilla incision S/P brachioplasty, C/S MRSA S/P abdominoplasty with postop hematoma, C/S also with MRSA Abnormal LFTs, ?due to sepsis - no N/V - no pain except over the incisions RECOMMENDATION Continue IV Vancomycin Follow WBC Follow temps Follow C/S Follow LFT Monitor progress Agree with CT A/P, if with more fluid collection, may need another drain placed Shavonne Marlow MD Oct 26, 2016 14:44
--- NOTE | 2016-10-26 15:35 | RADRPT ---
EXAM DATE/TIME: 10/26/2016 14:53 [facility] COMPARISON: No previous studies available for comparison. INDICATIONS : Patient with recent abdominal surgery, possible sepsis. ORAL CONTRAST: No oral contrast ingested. RADIATION DOSE: 15.19 CTDIvol (mGy) MEDICAL HISTORY : Hypertension. Diabetes mellitus type 1. Hypothyroidism. SURGICAL HISTORY : Cholecystectomy. section.romain schneider ENCOUNTER: Initial ACUITY: 1 day PAIN SCALE: 5/10 LOCATION: Bilateral upper quadrant TECHNIQUE: Volumetric scanning of the abdomen and pelvis was performed. Using automated exposure control and ad justment of the mA and/or kV according to patient size, radiation dose was kept as low as reasonably achievable to obtain optimal diagnostic quality images. FINDINGS: LOWER LUNGS: Small bilateral pleural effusions with associated atelectasis. LIVER: Homogeneous density without lesion. There is no dilation of the biliary tree. Gallbladder is surgica lly absent. SPLEEN: Normal size without lesion. PANCREAS: Within normal limits. KIDNEYS: Normal in size and shape. There is no mass, stone, or hydronephrosis. ADRENAL GLANDS: Within normal limits. VASCULAR: Diffuse calcified atherosclerotic plaque. No aneurysmal change. BOWEL/MESENTERY: The stomach, small bowel, and colon demonstrate no acute abnormality. There is no free intraperitone al air or fluid. ABDOMINAL WALL: A surgical drain is seen involving the intra-abdominal wall. There is air scattered throughout the in tra-abdominal wall without fluid. Diffuse anasarca noted. RETROPERITONEUM: There is no lymphadenopathy. BLADDER: No wall thickening or mass. REPRODUCTIVE: Within normal limits. INGUINAL: There is no lymphadenopathy or hernia. MUSCULOSKELETAL: Old left L2 and L3 transverse process fractures. A degenerative spine. CONCLUSION: 1. Small bilateral pleural effusions with passive atelectasis. 2. Anasarca. 3. Intra-abdominal wall surgical drain with air but no fluid. 4. Prior cholecystectomy. Geovany Ceja Jr., MD on October 26, 2016 at 15:22 Board Certified Radiologist. This report was verified electronically.
[2016-10-26 16:00] VITALS: BP 164/86; PULSE 60; RESP 18; TEMP 97.8; O2SAT 95
[2016-10-26] MEDS ORDERED: CALCIUM CARBONATE 500 MG CHEWABLE TAB PO PRN (19:15)
[2016-10-26 20:00] VITALS: BP 157/73; PULSE 61; RESP 20; TEMP 97.9; O2SAT 97
[2016-10-26] MEDS: ACETAMINOPHEN/HYDROcodone 325 MG/5 MG TAB PO PRN (21:16)
[2016-10-27] VITALS: BP 168/83; PULSE 61; RESP 20; TEMP 97; O2SAT 97
[2016-10-27] MEDS: VANCOMYCIN INJ 1,750 MG in SODIUM CHLORID 0.9% 500 ML INJ 500 ML IV SCH ×3 (00:34→23:49)
[2016-10-27] MEDS: ENOXAPARIN SODIUM 30 MG/0.3 ML SYRINGE SQ SCH ×2 (00:35→22:50)
[2016-10-27] MEDS: ACETAMINOPHEN 325 MG TAB PO PRN ×2 (00:36→14:52)
[2016-10-27 05:21] LABS: AUTOMATED NEUTROPHIL # 3.3 TH/MM3 (1.8-7.7); BASOPHIL % 0.7 % (0.0-2.0); EOSINOPHIL # 0.2 TH/MM3 (0-0.4); EOSINOPHIL % 4.3 % (0.0-4.0); HEMATOCRIT 25.7 % (35.0-46.0); HEMO FLAGS DIFF FINAL; LYMPH % 22.3 % (9.0-44.0); LYMPHOCYTE # 1.2 TH/MM3 (1.0-4.8); MEAN CELL VOLUME 84.8 FL (80.0-100.0); MEAN CORPUSCULAR HEMOGLOBIN 28.7 PG (27.0-34.0); MEAN CORPUSCULAR HGB CONC 33.8 % (32.0-36.0); NEUT % 61.7 % (16.0-70.0); PLATELET COUNT 375 TH/MM3 (150-450); RED BLOOD COUNT 3.02 MIL/MM3 (4.00-5.30); RED CELL DISTRIBUTION WIDTH 16.4 % (11.6-17.2); WHITE BLOOD COUNT 5.4 TH/MM3 (4.0-11.0)
[2016-10-27] MEDS: INSULIN ASPART SUPPLEMENTAL SCALE SQ SCH ×2 (05:27→11:00)
[2016-10-27 05:43] LABS: BICARBONATE 21.9 MEQ/L (21.0-32.0); INDIRECT BILIRUBIN 0.4 MG/DL (0.0-0.8); MAGNESIUM 1.8 MG/DL (1.5-2.5); POTASSIUM 3.8 MEQ/L (3.5-5.1); TOTAL BILIRUBIN ADULT 1.3 MG/DL (0.2-1.0)
[2016-10-27 08:00] VITALS: BP 154/88; PULSE 20; RESP 20; TEMP 96.7; O2SAT 96
[2016-10-27] MEDS: VENLAFAXINE HCL XR 75 MG CAP PO SCH (08:13)
[2016-10-27] MEDS: ATENOLOL 100 MG TAB PO SCH (08:13)
[2016-10-27] MEDS: POTASSIUM CHLORIDE 20 MEQ CONTROLLED RELEASE TAB PO SCH ×3 (08:13→20:39)
[2016-10-27] MEDS: ENALAPRIL MALEATE 10 MG TAB PO SCH ×2 (08:13→20:39)
[2016-10-27] MEDS: ASPIRIN EC 81 MG TABEC PO SCH (08:14)
[2016-10-27] MEDS: LEVOTHYROXINE SODIUM 112 MCG TAB PO SCH (08:14)
[2016-10-27] MEDS: TIMOLOL MALEATE 0.5% OPHT SOLN 5 ML BTL EACH EYE SCH ×2 (08:14→20:39)
[2016-10-27] MEDS: POVIDONE IODINE 10% SOLN 480 ML BTL TOPICAL SCH (08:16)
[2016-10-27] MEDS: SODIUM HYPOCHLORITE 0.25% 500 ML BTL TOPICAL SCH (08:17)
[2016-10-27] MEDS ORDERED: PHARMACY ORDERED LAB ONE (11:45)
--- NOTE | 2016-10-27 12:27 | HHI.IDPN ---
Subjective Subjective Remarks 61 Y/O female S/P sam brachial plasty and abdominoplasty, admitted with fevers and wound infection Notes reviewed Temps ok Pain a little better - up in chair and did some ambulation CT A/P - anasarca, no fluid in abdominal wall, has air Draining now on L lateral incision Fluid from abdominoplasty sent for C/S has MRSA Putting out a lot from JENNIFER drain Output from JENNIFER is reddish hall color, purulent Antibiotics Vancomycin Lines PIV Past Medical History Hypertension Diabetes Depression Hypothyroidism Obesity Past Surgical History section Blepharolplasty Breast reconstruction Bilateral brachioplasty and abdominoplasty. Allergies: Coded Allergies: *MDRO Multi-Drug Resistant Organism (Verified Adverse Reaction, Unknown, MRSA, 10/24/16) MRSA (wound) - 10/22/16 Objective . Vital Signs Date Time Temp Pulse Resp B/P Pulse Ox O2 Delivery O2 Flow Rate FiO2 10/27/16 08:00 96.7 20 20 154/88 96 10/27/16 01:36 18 10/27/16 00:00 97.0 61 20 168/83 97 10/26/16 22:16 18 10/26/16 20:00 97.9 61 20 157/73 97 10/26/16 16:00 97.8 60 18 164/86 95 10/26/16 10/26/16 10/27/16 15:00 23:00 07:00 Intake Total 500 ml 480 ml 1124 ml Output Total 170 ml 55 ml Balance 330 ml 480 ml 1069 ml Intake Oral 360 ml 480 ml 0 ml IV Total 140 ml 1124 ml Drainage Total 170 ml 55 ml # Voids 2 1 1 # Bowel Movements 0 1 . Laboratory Tests Test 10/27/16 04:04 White Blood Count 5.4 TH/MM3 Red Blood Count 3.02 MIL/MM3 Hemoglobin 8.7 GM/DL Hematocrit 25.7 % Mean Corpuscular Volume 84.8 FL Mean Corpuscular Hemoglobin 28.7 PG Mean Corpuscular Hemoglobin 33.8 % Concent Red Cell Distribution Width 16.4 % Platelet Count 375 TH/MM3 Mean Platelet Volume 8.0 FL Neutrophils (%) (Auto) 61.7 % Lymphocytes (%) (Auto) 22.3 % Monocytes (%) (Auto) 11.0 % Eosinophils (%) (Auto) 4.3 % Basophils (%) (Auto) 0.7 % Neutrophils # (Auto) 3.3 TH/MM3 Lymphocytes # (Auto) 1.2 TH/MM3 Monocytes # (Auto) 0.6 TH/MM3 Eosinophils # (Auto) 0.2 TH/MM3 Basophils # (Auto) 0.0 TH/MM3 CBC Comment DIFF FINAL Differential Comment Laboratory Tests Test 10/27/16 04:04 Sodium Level 136 MEQ/L Potassium Level 3.8 MEQ/L Chloride Level 104 MEQ/L Carbon Dioxide Level 21.9 MEQ/L Anion Gap 10 MEQ/L Blood Urea Nitrogen 9 MG/DL Creatinine 0.27 MG/DL Estimat Glomerular Filtration 254 ML/MIN Rate Random Glucose 90 MG/DL Calcium Level 7.9 MG/DL Magnesium Level 1.8 MG/DL Total Bilirubin 1.3 MG/DL Direct Bilirubin 0.9 MG/DL Indirect Bilirubin 0.4 MG/DL Aspartate Amino Transf 35 U/L (AST/SGOT) Alanine Aminotransferase 48 U/L (ALT/SGPT) Alkaline Phosphatase 447 U/L Total Protein 5.2 GM/DL Albumin 1.7 GM/DL Microbiology Date/Time Procedure Status Source Growth 10/24/16 20:00 Gram Stain - Final Complete Fluid Other 10/24/16 20:00 Body Fluid Culture - Final Complete S. Aureus [facility] Imaging Abdomen Ultrasound 10/24/16 1400 Signed Impressions: Service Date/Time: Monday, October 24, 2016 14:14 - CONCLUSION: Nonspecific hepatomegaly. No focal hepatic lesion or evidence of biliary obstruction. Previous cholecystectomy. Darrion Bills MD Chest X-Ray 10/22/16 1619 Signed Impressions: Service Date/Time: Saturday, October 22, 2016 17:12 - CONCLUSION: The lungs are clear. Geovany Strong MD Upper Extremity CT 10/22/16 0000 Signed Impressions: Service Date/Time: Saturday, October 22, 2016 19:40 - CONCLUSION: Soft tissue induration, skin thickening, and subcutaneous collections of gas in the tissues adjacent to the medial armpit. No drainable fluid collections seen. Geovany Strong MD Physical Exam GENERAL: awake and alert, not in respiratory distress. SKIN: Warm and dry. No generalized rash, no ecchymoses and no evidence of embolic lesions. HEENT: No petechia or hemorrhage. No scleral icterus. No injection or drainage. Mucous membranes pink and moist. No oral lesions noted. No exudate. No oral thrush. NECK: Trachea midline. Supple and not tender, no meningeal signs CARDIOVASCULAR: Regular rate and rhythm. No murmurs, rubs or gallops heard RESPIRATORY: Clear to auscultation. Decreased BS at bases ABDOMEN: Flat, has the abdominoplasty incision, with very minimal erythema, R lateral area that now has a JENNIFER drain with reddish hall purulent fluid in JENNIFER drain. Draining same color L lateral. Distended abdomen, tender, no guarding or rebound. Bowel sounds present and normoactive. EXTREMITIES: No clubbing, cyanosis, or calf tenderness. (+) edema. Incisions in R arm dry and there is wound dehiscence in R axilla that is about 2 inch diameter, no purulence noted. LUE - has dry incision, steristrips still in place, and there is a smaller dehiscence that is about 1 inch x 1/4 inch with packing NEUROLOGICAL: Awake and alert. Cranial nerves grossly intact. Motor grossly within normal limits. PSYCHIATRIC: Normal affect, calm and cooperative. LINE: No evidence of infection Assessment & Plan Remarks IMPRESSION Sepsis on presentation due to post-op wound infections sam brachioplasty, C/S MRSA - fevers better - now developing neutropenia, ?meds Wound dehiscence both axilla incision S/P brachioplasty, C/S MRSA S/P abdominoplasty with postop hematoma, C/S also with MRSA Abnormal LFTs, ?due to sepsis - no N/V - no pain except over the incisions RECOMMENDATION Continue IV Vancomycin Follow WBC Follow temps Follow C/S Follow LFT Monitor progress D/W Shavonne King MD Oct 27, 2016 12:27
[2016-10-27] MEDS ORDERED: FUROSEMIDE 100 MG/10 ML VIAL IV PUSH ONE (14:00)
--- NOTE | 2016-10-27 14:33 | HHI.PR ---
Subjective Remarks Pt c/o swelling at arms. Pt denies SOB. Pt states that abdominal pain is much improved over the last 2 days. Objective Vitals Vital Signs Date Time Temp Pulse Resp B/P Pulse Ox O2 Delivery O2 Flow Rate FiO2 10/27/16 08:00 96.7 20 20 154/88 96 10/27/16 01:36 18 10/27/16 00:00 97.0 61 20 168/83 97 10/26/16 22:16 18 10/26/16 20:00 97.9 61 20 157/73 97 10/26/16 16:00 97.8 60 18 164/86 95 10/26/16 10/26/16 10/27/16 15:00 23:00 07:00 Intake Total 500 ml 480 ml 1124 ml Output Total 170 ml 55 ml Balance 330 ml 480 ml 1069 ml Intake Oral 360 ml 480 ml 0 ml IV Total 140 ml 1124 ml Drainage Total 170 ml 55 ml # Voids 2 1 1 # Bowel Movements 0 1 Result Diagram: 10/27/16 0404 10/27/16 0404 Imaging Last Impressions Abdomen X-Ray 10/25/16 0000 Signed Impressions: Service Date/Time: Tuesday, October 25, 2016 13:26 - CONCLUSION: No dilated loops of small bowel seen. Geovany Strong MD Abdomen Ultrasound 10/24/16 1400 Signed Impressions: Service Date/Time: Monday, October 24, 2016 14:14 - CONCLUSION: Nonspecific hepatomegaly. No focal hepatic lesion or evidence of biliary obstruction. Previous cholecystectomy. Darrion Bills MD Chest X-Ray 10/22/16 1619 Signed Impressions: Service Date/Time: Saturday, October 22, 2016 17:12 - CONCLUSION: The lungs are clear. Geovany Strong MD Upper Extremity CT 10/22/16 0000 Signed Impressions: Service Date/Time: Saturday, October 22, 2016 19:40 - CONCLUSION: Soft tissue induration, skin thickening, and subcutaneous collections of gas in the tissues adjacent to the medial armpit. No drainable fluid collections seen. Geovany Strong MD Objective Remarks GENERAL: This is a well-nourished, well-developed patient, in no apparent distress. CARDIOVASCULAR: Regular rate and rhythm without murmurs, gallops, or rubs. RESPIRATORY: Clear to auscultation. Breath sounds equal bilaterally. No wheezes , rales, or rhonchi. GASTROINTESTINAL: positive BS x4, no g/r/r, tender at RLQ MUSCULOSKELETAL: Extremities without clubbing, cyanosis, or edema. NEURO: Alert & Oriented x4 to person, place, time, situation. Moves all ext x4 skin: large dehisced wound at right axilla with packing, small dehisced wound at right axilla JENNIFER drain at right side of abdominal wound A/P Problem List: (1) Post op infection Status: Acute Plan: - comgmt with [facility] - Pt is 61 yo with hx morbid obesity, dm, htn - She underwent brachioplasty sam and abdominoplasty 10/10 in [place]. - She fell over the dog 1 week prior to [facility] admission and the axillary surgical wound both ripped open - worse on the right side. - She followed up once with her surgeon and was supposed to go back Monday - Pt presented to [facility] with several days of f/c/rigors and likely sepsis. - Upon initial presentation, The right axillary wound had alot of foul smelling drainage. - wound cx from 10/22 swab from axilla growing MRSA - wound cx from abdominal seroma 10/24/16 growing MRSA - Vancomycin (10/22 - present) - Zosyn (10/22 - 10/24) - Drainage of abdominal seroma and placement of JENNIFER drain performed by Dr. Moss 10/24/16 - 125ml of drainage from JENNIFER drain for 10/27/16 so far. - continue current treatment plan - Pt is volume overloaded. Pt septic on admission and received IVFs - Will diurese. 80mg IV lasix now, and then 40mg IV BID - BMP, mag in AM - Case d/w Dr. Chapa (10/27/16). - Case d/w pt's surgeon, Dr. Hernandez ([facility]) on 10/24/16 - wound care (2) Hyponatremia Status: Acute Plan: - resolved (3) Anemia, blood loss Status: Acute Plan: - improved - per pt's surgeon Dr. Hernandez, her pre-op CBC showed Hg 14 with HCT 43 - see above - pt received 2 units PRBCs - Pt's Hg increased 7.1 (10/24/16) and 9.0 (10/25/16), 8.7 (10/27/16) (4) DM (diabetes mellitus) Status: Chronic Plan: - metformin (5) HTN (hypertension) Status: Chronic Plan: - improving - atenolol 100mg daily - enalapril 20mg BID - continue to hold HCTZ - observe (6) Depressed Status: Chronic (7) Elevated transaminase level Status: Acute Plan: - d/t sepsis? - Abdominal US (10/24/16) --> NO biliary obstruction, previous cholecystectomy - overall improving, except alk phos 447 (10/27/16), observe Problem Qualifiers (1) DM (diabetes mellitus): Qualified Code: E11.8 - Type 2 diabetes mellitus with complication, without long-term current use of insulin (2) HTN (hypertension): Qualified Code: I10 - Essential hypertension (3) Depressed: Qualified Code: F32.9 - Depression, unspecified depression type Maicol Ramey DO Oct 27, 2016 14:33
--- NOTE | 2016-10-27 15:03 | PD.PLAS.PN ---
Subjective Remarks Patient reports improvement in abdominal pain. Objective Vital Signs Date Time Temp Pulse Resp B/P Pulse Ox O2 Delivery O2 Flow Rate FiO2 10/27/16 08:00 96.7 20 20 154/88 96 10/27/16 01:36 18 10/27/16 00:00 97.0 61 20 168/83 97 10/26/16 22:16 18 10/26/16 20:00 97.9 61 20 157/73 97 10/26/16 16:00 97.8 60 18 164/86 95 I/O 10/26/16 10/26/16 10/26/16 10/27/16 10/27/16 10/27/16 07:00 15:00 23:00 07:00 15:00 23:00 Intake Total 240 ml 500 ml 480 ml 1124 ml 240 ml Output Total 65 ml 170 ml 55 ml 770 ml Balance 175 ml 330 ml 480 ml 1069 ml -530 ml Intake Oral 240 ml 360 ml 480 ml 0 ml 240 ml IV Total 140 ml 1124 ml Output Urine Total 700 ml Drainage Total 65 ml 170 ml 55 ml 70 ml # Voids 2 2 1 1 # Bowel Movements 0 0 1 1 Laboratory Tests Test 10/27/16 10/27/16 04:04 12:37 White Blood Count 5.4 Red Blood Count 3.02 Hemoglobin 8.7 Hematocrit 25.7 Mean Corpuscular Volume 84.8 Mean Corpuscular Hemoglobin 28.7 Mean Corpuscular Hemoglobin 33.8 Concent Red Cell Distribution Width 16.4 Platelet Count 375 Mean Platelet Volume 8.0 Neutrophils (%) (Auto) 61.7 Lymphocytes (%) (Auto) 22.3 Monocytes (%) (Auto) 11.0 Eosinophils (%) (Auto) 4.3 Basophils (%) (Auto) 0.7 Neutrophils # (Auto) 3.3 Lymphocytes # (Auto) 1.2 Monocytes # (Auto) 0.6 Eosinophils # (Auto) 0.2 Basophils # (Auto) 0.0 CBC Comment DIFF FINAL Differential Comment Sodium Level 136 Potassium Level 3.8 Chloride Level 104 Carbon Dioxide Level 21.9 Anion Gap 10 Blood Urea Nitrogen 9 Creatinine 0.27 Estimat Glomerular Filtration 254 Rate Random Glucose 90 Calcium Level 7.9 Magnesium Level 1.8 Total Bilirubin 1.3 Direct Bilirubin 0.9 Indirect Bilirubin 0.4 Aspartate Amino Transf 35 (AST/SGOT) Alanine Aminotransferase 48 (ALT/SGPT) Alkaline Phosphatase 447 Total Protein 5.2 Albumin 1.7 Vancomycin Level Trough 14.2 Date/Time Procedure Status Source Growth 10/24/16 20:00 Gram Stain - Final Complete Fluid Other 10/24/16 20:00 Body Fluid Culture - Final Complete S. Aureus Mrsa 10/22/16 17:25 Aerobic Blood Culture - Final Complete Blood Peripheral NO GROWTH IN 5 DAYS 10/22/16 17:25 Anaerobic Blood Culture - Final Complete Blood Peripheral NO GROWTH IN 5 DAYS 10/22/16 16:30 Influenza Types A,B Antigen ([facility]) - Final Complete Nasal Washing NEGATIVE FOR FLU A AND B ANTIGEN.... Result Diagram: 10/27/16 0404 10/27/16 0404 Exam Findings The abdominal wound is healing. There is significantly less drainage than yesterday. Incision is mostly intact. There is a small (1cm) opening at the left side of the wound with thick drainage. The drain is in place on the right side. There is no erythema or evidence of cellulitis. There is no odor. Assessment and Plan Diagnosis: (1) Post op infection Assessment and Plan The wound is irrigated using a solution of injectable saline and Betadine (1:10) . Irrigation solution was drained from both open areas. The drain tube was trimmed and wrapped with an ABD pad as suction could not be reestablished with the drain. Wounds were dressed with betadine soaked gauze, abd pads and held in place with underwear. Discussed with RN. The exam, history, and the medical decision-making described in the above note were completed with the assistance of the mid-level provider. I reviewed and agree with the findings presented. I attest that I had a [id number] encounter with the patient on the same day, and personally performed and documented my assessment and findings in the medical record. Kate Chapa M.D. Patricia Segovia Oct 27, 2016 15:03
[2016-10-27] MEDS: FUROSEMIDE 40 MG/4 ML VIAL IV PUSH SCH (18:14)
[2016-10-27 20:00] VITALS: BP 158/74; PULSE 67; RESP 17; TEMP 97.4; O2SAT 98
[2016-10-28] VITALS: BP 139/71; PULSE 72; RESP 17; TEMP 96.8; O2SAT 98
[2016-10-28 07:32] LABS: BICARBONATE 27.9 MEQ/L (21.0-32.0); MAGNESIUM 1.6 MG/DL (1.5-2.5); POTASSIUM 3.1 MEQ/L (3.5-5.1)
[2016-10-28 08:00] VITALS: BP 212/123; PULSE 70; RESP 18; TEMP 97.7; O2SAT 99
[2016-10-28] MEDS: VENLAFAXINE HCL XR 75 MG CAP PO SCH (08:46)
[2016-10-28] MEDS: ASPIRIN EC 81 MG TABEC PO SCH (08:46)
[2016-10-28] MEDS: FUROSEMIDE 40 MG/4 ML VIAL IV PUSH SCH (08:47)
[2016-10-28] MEDS: ATENOLOL 100 MG TAB PO SCH (08:47)
[2016-10-28] MEDS: ENALAPRIL MALEATE 10 MG TAB PO SCH ×2 (08:47→21:25)
[2016-10-28] MEDS: LEVOTHYROXINE SODIUM 112 MCG TAB PO SCH (08:47)
[2016-10-28] MEDS: POTASSIUM CHLORIDE 20 MEQ CONTROLLED RELEASE TAB PO SCH ×5 (08:47→21:25)
[2016-10-28] MEDS: TIMOLOL MALEATE 0.5% OPHT SOLN 5 ML BTL EACH EYE SCH ×2 (08:48→21:00)
[2016-10-28] MEDS: POVIDONE IODINE 10% SOLN 480 ML BTL TOPICAL SCH (08:50)
[2016-10-28] MEDS: SODIUM HYPOCHLORITE 0.25% 500 ML BTL TOPICAL SCH (08:50)
[2016-10-28 12:00] VITALS: BP 152/75; PULSE 58; RESP 18; TEMP 98.5; O2SAT 98
[2016-10-28] MEDS: VANCOMYCIN INJ 1,750 MG in SODIUM CHLORID 0.9% 500 ML INJ 500 ML IV SCH ×2 (12:33→23:39)
--- NOTE | 2016-10-28 15:22 | HHI.PR ---
Subjective Remarks Edema at arms better. Objective Vitals Vital Signs Date Time Temp Pulse Resp B/P Pulse Ox O2 Delivery O2 Flow Rate FiO2 10/28/16 12:00 98.5 58 18 152/75 98 10/28/16 08:00 97.7 70 18 212/123 99 10/28/16 00:00 96.8 72 17 139/71 98 10/27/16 20:00 97.4 67 17 158/74 98 10/27/16 10/27/16 10/28/16 15:00 23:00 07:00 Intake Total 240 ml 622 ml 824 ml Output Total 810 ml 200 ml Balance -570 ml 622 ml 624 ml Intake Oral 240 ml 240 ml 240 ml IV Total 382 ml 584 ml Output Urine Total 700 ml 200 ml Drainage Total 110 ml # Voids 1 # Bowel Movements 1 Result Diagram: 10/27/16 0404 10/28/16 0601 Imaging Last Impressions Abdomen X-Ray 10/25/16 0000 Signed Impressions: Service Date/Time: Tuesday, October 25, 2016 13:26 - CONCLUSION: No dilated loops of small bowel seen. Geovany Strong MD Abdomen Ultrasound 10/24/16 1400 Signed Impressions: Service Date/Time: Monday, October 24, 2016 14:14 - CONCLUSION: Nonspecific hepatomegaly. No focal hepatic lesion or evidence of biliary obstruction. Previous cholecystectomy. Darrion Bills MD Chest X-Ray 10/22/16 1619 Signed Impressions: Service Date/Time: Saturday, October 22, 2016 17:12 - CONCLUSION: The lungs are clear. Geovany Strong MD Upper Extremity CT 10/22/16 0000 Signed Impressions: Service Date/Time: Saturday, October 22, 2016 19:40 - CONCLUSION: Soft tissue induration, skin thickening, and subcutaneous collections of gas in the tissues adjacent to the medial armpit. No drainable fluid collections seen. Geovany Strong MD Objective Remarks GENERAL: This is a well-nourished, well-developed patient, in no apparent distress. CARDIOVASCULAR: Regular rate and rhythm without murmurs, gallops, or rubs. RESPIRATORY: Clear to auscultation. Breath sounds equal bilaterally. No wheezes , rales, or rhonchi. GASTROINTESTINAL: positive BS x4, no g/r/r, tender at RLQ MUSCULOSKELETAL: Extremities without clubbing, cyanosis, or edema. NEURO: Alert & Oriented x4 to person, place, time, situation. Moves all ext x4 skin: large dehisced wound at right axilla with packing, small dehisced wound at right axilla JENNIFER drain at right side of abdominal wound A/P Problem List: (1) Post op infection Status: Acute Plan: - comgmt with ID & Plastics - Pt is 61 yo with hx morbid obesity, dm, htn - She underwent brachioplasty sam and abdominoplasty 10/10 in [place]. - She fell over the dog 1 week prior to [place] admission and the axillary surgical wound both ripped open - worse on the right side. - She followed up once with her surgeon and was supposed to go back Monday - Pt presented to [place] with several days of f/c/rigors and likely sepsis. - Upon initial presentation, The right axillary wound had alot of foul smelling drainage. - wound cx from 10/22 swab from axilla growing MRSA - wound cx from abdominal seroma 10/24/16 growing MRSA - Vancomycin (10/22 - present) - Zosyn (10/22 - 10/24) - Drainage of abdominal seroma and placement of JENNIFER drain performed by Dr. Moss 10/24/16 - bulb removed from right abdominal drain. drainage continues from abdominal drain, will d/w Palstics - drainage from small open area at left lateral portion of abdominal wound - continue current treatment plan - Pt is volume overloaded. Pt septic on admission and received IVFs. Much improved from 10/27 - decrease lasix to 40mg IV daily - BMP, mag in AM - Case d/w Dr. Chapa (10/27/16). - Case d/w pt's surgeon, Dr. Hernandez ([facility]) on 10/24/16 - wound care - anticipate d/c in 2-3 days (2) Hyponatremia Status: Acute Plan: - resolved (3) Anemia, blood loss Status: Acute Plan: - improved - per pt's surgeon Dr. Hernandez, her pre-op CBC showed Hg 14 with HCT 43 - see above - pt received 2 units PRBCs - Pt's Hg increased 7.1 (10/24/16) and 9.0 (10/25/16), 8.7 (10/27/16) (4) DM (diabetes mellitus) Status: Chronic Plan: - metformin (5) HTN (hypertension) Status: Chronic Plan: - improving - atenolol 100mg daily - enalapril 20mg BID - continue to hold HCTZ - observe (6) Depressed Status: Chronic (7) Elevated transaminase level Status: Acute Plan: - d/t sepsis? - Abdominal US (10/24/16) --> NO biliary obstruction, previous cholecystectomy - overall improving, except alk phos 447 (10/27/16), observe Problem Qualifiers (1) DM (diabetes mellitus): Qualified Code: E11.8 - Type 2 diabetes mellitus with complication, without long-term current use of insulin (2) HTN (hypertension): Qualified Code: I10 - Essential hypertension (3) Depressed: Qualified Code: F32.9 - Depression, unspecified depression type Maicol Ramey DO Oct 28, 2016 15:22
[2016-10-28 16:00] VITALS: BP 187/86; PULSE 62; RESP 16; TEMP 98.5; O2SAT 98
--- NOTE | 2016-10-28 17:05 | HHI.IDPN ---
Subjective Subjective Remarks 61 Y/O female S/P sam brachial plasty and abdominoplasty, admitted with fevers and wound infection Notes reviewed Temps ok WBC back to normal Had irrigation of her abdominal wound by plastics CT A/P - anasarca, no fluid in abdominal wall, has air Still with a lot of output from the JENNIFER drain Antibiotics Vancomycin Lines PIV Past Medical History Reviewed Allergies: Coded Allergies: *MDRO Multi-Drug Resistant Organism (Verified Adverse Reaction, Unknown, MRSA, 10/24/16) MRSA (wound) - 10/22/16 Objective . Vital Signs Date Time Temp Pulse Resp B/P Pulse Ox O2 Delivery O2 Flow Rate FiO2 10/28/16 12:00 98.5 58 18 152/75 98 10/28/16 08:00 97.7 70 18 212/123 99 10/28/16 00:00 96.8 72 17 139/71 98 10/27/16 20:00 97.4 67 17 158/74 98 10/27/16 10/27/16 10/28/16 15:00 23:00 07:00 Intake Total 240 ml 622 ml 824 ml Output Total 810 ml 200 ml Balance -570 ml 622 ml 624 ml Intake Oral 240 ml 240 ml 240 ml IV Total 382 ml 584 ml Output Urine Total 700 ml 200 ml Drainage Total 110 ml # Voids 1 # Bowel Movements 1 . Laboratory Tests Test 10/27/16 04:04 White Blood Count 5.4 TH/MM3 Red Blood Count 3.02 MIL/MM3 Hemoglobin 8.7 GM/DL Hematocrit 25.7 % Mean Corpuscular Volume 84.8 FL Mean Corpuscular Hemoglobin 28.7 PG Mean Corpuscular Hemoglobin 33.8 % Concent Red Cell Distribution Width 16.4 % Platelet Count 375 TH/MM3 Mean Platelet Volume 8.0 FL Neutrophils (%) (Auto) 61.7 % Lymphocytes (%) (Auto) 22.3 % Monocytes (%) (Auto) 11.0 % Eosinophils (%) (Auto) 4.3 % Basophils (%) (Auto) 0.7 % Neutrophils # (Auto) 3.3 TH/MM3 Lymphocytes # (Auto) 1.2 TH/MM3 Monocytes # (Auto) 0.6 TH/MM3 Eosinophils # (Auto) 0.2 TH/MM3 Basophils # (Auto) 0.0 TH/MM3 CBC Comment DIFF FINAL Differential Comment Laboratory Tests Test 10/27/16 10/28/16 04:04 06:01 Sodium Level 136 MEQ/L 137 MEQ/L Potassium Level 3.8 MEQ/L 3.1 MEQ/L Chloride Level 104 MEQ/L 102 MEQ/L Carbon Dioxide Level 21.9 MEQ/L 27.9 MEQ/L Anion Gap 10 MEQ/L 7 MEQ/L Blood Urea Nitrogen 9 MG/DL 6 MG/DL Creatinine 0.27 MG/DL 0.21 MG/DL Estimat Glomerular Filtration 254 ML/MIN 339 ML/MIN Rate Random Glucose 90 MG/DL 75 MG/DL Calcium Level 7.9 MG/DL 7.5 MG/DL Magnesium Level 1.8 MG/DL 1.6 MG/DL Total Bilirubin 1.3 MG/DL Direct Bilirubin 0.9 MG/DL Indirect Bilirubin 0.4 MG/DL Aspartate Amino Transf 35 U/L (AST/SGOT) Alanine Aminotransferase 48 U/L (ALT/SGPT) Alkaline Phosphatase 447 U/L Total Protein 5.2 GM/DL Albumin 1.7 GM/DL Imaging Abdomen Ultrasound 10/24/16 1400 Signed Impressions: Service Date/Time: Monday, October 24, 2016 14:14 - CONCLUSION: Nonspecific hepatomegaly. No focal hepatic lesion or evidence of biliary obstruction. Previous cholecystectomy. Darrion Bills MD Chest X-Ray 10/22/16 1619 Signed Impressions: Service Date/Time: Saturday, October 22, 2016 17:12 - CONCLUSION: The lungs are clear. Geovany Strong MD Upper Extremity CT 10/22/16 0000 Signed Impressions: Service Date/Time: Saturday, October 22, 2016 19:40 - CONCLUSION: Soft tissue induration, skin thickening, and subcutaneous collections of gas in the tissues adjacent to the medial armpit. No drainable fluid collections seen. Geovany Strong MD Physical Exam GENERAL: awake and alert, NAD SKIN: Warm and dry. No generalized rash, no ecchymoses and no evidence of embolic lesions. HEENT: No petechia or hemorrhage. No scleral icterus. No injection or drainage. Mucous membranes pink and moist. No oral lesions noted. NECK: Trachea midline. Supple and not tender, no meningeal signs CARDIOVASCULAR: Regular rate and rhythm. No murmurs, rubs or gallops heard RESPIRATORY: Clear to auscultation. Decreased BS at bases ABDOMEN: Has the abdominoplasty incision, with very minimal erythema, R lateral area that now has a JENNIFER drain ini place. Draining same color L lateral. Mildly distended abdomen, tender, no guarding or rebound. Bowel sounds present and normoactive. EXTREMITIES: No clubbing, cyanosis, or calf tenderness. (+) edema. Incisions in R arm dry and there is wound dehiscence in R axilla that is about 2 inch diameter, no purulence noted. LUE - has dry incision, steristrips still in place, and there is a smaller dehiscence that is about 1 inch x 1/4 inch with packing NEUROLOGICAL: Non-focal. PSYCHIATRIC: Normal affect, calm and cooperative. LINE: No evidence of infection Assessment & Plan Remarks IMPRESSION Sepsis on presentation due to post-op wound infections sam brachioplasty, C/S MRSA - fevers better - now developing neutropenia, ?meds Wound dehiscence both axilla incision S/P brachioplasty, C/S MRSA S/P abdominoplasty with postop hematoma, C/S also with MRSA Abnormal LFTs, ?due to sepsis, improving - no N/V - no pain except over the incisions RECOMMENDATION Continue IV Vancomycin for MRSA wound infection abdominoplasty and both brachioplasty - pharmacy doing dosing, aim for 15-20 - will monitor labs while on IV Abx: Vanco trough, CBC and creatinine Follow temps Monitor progress Will give about 2 weeks IV Abx on D/C D/W Shavonne King MD Oct 28, 2016 17:04
--- NOTE | 2016-10-28 18:16 | PD.PLAS.PN ---
Subjective Remarks The patient is feeling "Less ebullient". Vital Signs Date Time Temp Pulse Resp B/P Pulse Ox O2 Delivery O2 Flow Rate FiO2 10/28/16 16:00 98.5 62 16 187/86 98 10/28/16 12:00 98.5 58 18 152/75 98 10/28/16 08:00 97.7 70 18 212/123 99 10/28/16 00:00 96.8 72 17 139/71 98 10/27/16 20:00 97.4 67 17 158/74 98 I/O 10/27/16 10/27/16 10/27/16 10/28/16 10/28/16 10/28/16 07:00 15:00 23:00 07:00 15:00 23:00 Intake Total 1124 ml 240 ml 622 ml 824 ml 800 ml Output Total 55 ml 810 ml 200 ml Balance 1069 ml -570 ml 622 ml 624 ml 800 ml Intake Oral 0 ml 240 ml 240 ml 240 ml 300 ml IV Total 1124 ml 382 ml 584 ml 500 ml Output Urine Total 700 ml 200 ml Drainage Total 55 ml 110 ml # Voids 1 1 2 # Bowel Movements 1 Laboratory Tests Test 10/28/16 06:01 Sodium Level 137 Potassium Level 3.1 Chloride Level 102 Carbon Dioxide Level 27.9 Anion Gap 7 Blood Urea Nitrogen 6 Creatinine 0.21 Estimat Glomerular Filtration 339 Rate Random Glucose 75 Calcium Level 7.5 Magnesium Level 1.6 Date/Time Procedure Status Source Growth 10/24/16 20:00 Gram Stain - Final Complete Fluid Other 10/24/16 20:00 Body Fluid Culture - Final Complete S. Aureus Mrsa Result Diagram: 10/27/16 0404 10/28/16 0601 Exam Findings The patient has been out of bed. The drain continues to drain a diluted, serous fluid. The axilla appeared to be granulating. There is no evidence of cellulitis in the axilla or the abdominal skin. There is no further bloody drainage. Impression: (1) Post op infection Plan Impression: The patient appears to be improving. Plan: The patient should continue on wound care to both axilla. In addition, we will monitor the drainage. Kate Chapa MD Oct 28, 2016 18:16
[2016-10-28] MEDS: NIFEdipine 60 MG SUSTAINED RELEASE TAB PO SCH (18:19)
[2016-10-28 20:00] VITALS: BP 180/84; PULSE 62; RESP 17; TEMP 98; O2SAT 98
[2016-10-28] MEDS: ENOXAPARIN SODIUM 30 MG/0.3 ML SYRINGE SQ SCH (23:39)
[2016-10-29] VITALS: BP 129/59; PULSE 68; RESP 17; TEMP 98.6; O2SAT 97
[2016-10-29 06:49] LABS: AUTOMATED NEUTROPHIL # 4.6 TH/MM3 (1.8-7.7); BASOPHIL % 0.6 % (0.0-2.0); EOSINOPHIL # 0.1 TH/MM3 (0-0.4); EOSINOPHIL % 1.3 % (0.0-4.0); HEMATOCRIT 31.2 % (35.0-46.0); LYMPH % 25.9 % (9.0-44.0); LYMPHOCYTE # 1.9 TH/MM3 (1.0-4.8); MEAN CELL VOLUME 84.6 FL (80.0-100.0); MEAN CORPUSCULAR HEMOGLOBIN 28.2 PG (27.0-34.0); MEAN CORPUSCULAR HGB CONC 33.3 % (32.0-36.0); MONO % 9.4 % (0.0-8.0); NEUT % 62.8 % (16.0-70.0); PLATELET COUNT 490 TH/MM3 (150-450); RED BLOOD COUNT 3.68 MIL/MM3 (4.00-5.30); RED CELL DISTRIBUTION WIDTH 17.1 % (11.6-17.2); WHITE BLOOD COUNT 7.2 TH/MM3 (4.0-11.0)
[2016-10-29 07:05] LABS: BICARBONATE 24.6 MEQ/L (21.0-32.0); MAGNESIUM 1.6 MG/DL (1.5-2.5); POTASSIUM 3.4 MEQ/L (3.5-5.1)
[2016-10-29 07:09] LABS: INDIRECT BILIRUBIN 0.4 MG/DL (0.0-0.8); TOTAL BILIRUBIN ADULT 0.8 MG/DL (0.2-1.0)
[2016-10-29 07:21] LABS: HEMO FLAGS AUTO DIFF
[2016-10-29 08:00] VITALS: BP 113/58; PULSE 68; RESP 16; TEMP 96.9; O2SAT 96
[2016-10-29] MEDS: POTASSIUM CHLORIDE 20 MEQ CONTROLLED RELEASE TAB PO SCH ×3 (09:00→21:25)
[2016-10-29] MEDS: ATENOLOL 100 MG TAB PO SCH (09:11)
[2016-10-29] MEDS: TIMOLOL MALEATE 0.5% OPHT SOLN 5 ML BTL EACH EYE SCH ×2 (09:11→21:24)
[2016-10-29] MEDS: ENALAPRIL MALEATE 10 MG TAB PO SCH ×2 (09:11→21:25)
[2016-10-29] MEDS: ASPIRIN EC 81 MG TABEC PO SCH (09:11)
[2016-10-29] MEDS: LEVOTHYROXINE SODIUM 112 MCG TAB PO SCH (09:11)
[2016-10-29] MEDS: NIFEdipine 60 MG SUSTAINED RELEASE TAB PO SCH (09:11)
[2016-10-29] MEDS: FUROSEMIDE 40 MG/4 ML VIAL IV PUSH SCH (09:12)
[2016-10-29] MEDS: VENLAFAXINE HCL XR 75 MG CAP PO SCH (09:12)
[2016-10-29] MEDS: POVIDONE IODINE 10% SOLN 480 ML BTL TOPICAL SCH (09:20)
[2016-10-29] MEDS: SODIUM HYPOCHLORITE 0.25% 500 ML BTL TOPICAL SCH (09:20)
[2016-10-29 10:41] LABS: BANDS 10 % (0-6); BASOPHILS 1 % (0-2); METAMYELOCYTES 1 % (0-1); NEUTROPHIL # MANUAL DIFF 4.8 TH/MM3 (1.8-7.7); POLYS (SEG NEUTROPHILS) 56 % (16-70); WBC DIFF SAMPLE 100
[2016-10-29 10:42] LABS: PLATELET ESTIMATE SMEAR HIGH (NORMAL); PLATELET MORPHOLOGY NORMAL (NORMAL); SCAN/DIFF FINAL DIFF MANUAL
[2016-10-29 12:00] VITALS: BP 126/74; PULSE 64; RESP 16; TEMP 97.8; O2SAT 99
[2016-10-29] MEDS: VANCOMYCIN INJ 1,750 MG in SODIUM CHLORID 0.9% 500 ML INJ 500 ML IV SCH (12:38)
[2016-10-29 16:00] VITALS: BP 142/67; PULSE 62; RESP 17; TEMP 98.3; O2SAT 98
--- NOTE | 2016-10-29 16:38 | HHI.PR ---
Subjective Remarks No new complaints. Objective Vitals Vital Signs Date Time Temp Pulse Resp B/P Pulse Ox O2 Delivery O2 Flow Rate FiO2 10/29/16 16:00 98.3 62 17 142/67 98 10/29/16 12:00 97.8 64 16 126/74 99 10/29/16 08:00 96.9 68 16 113/58 96 10/29/16 00:00 98.6 68 17 129/59 97 10/28/16 20:00 98.0 62 17 180/84 98 10/28/16 10/28/16 10/29/16 15:00 23:00 07:00 Intake Total 800 ml 813 ml 672 ml Output Total 5 ml 20 ml Balance 800 ml 808 ml 652 ml Intake Oral 300 ml 240 ml 240 ml IV Total 500 ml 573 ml 432 ml Drainage Total 5 ml 20 ml # Voids 2 4 4 Result Diagram: 10/29/16 0613 10/29/16 0613 Imaging Last Impressions Abdomen X-Ray 10/25/16 0000 Signed Impressions: Service Date/Time: Tuesday, October 25, 2016 13:26 - CONCLUSION: No dilated loops of small bowel seen. Geovany Strong MD Abdomen Ultrasound 10/24/16 1400 Signed Impressions: Service Date/Time: Monday, October 24, 2016 14:14 - CONCLUSION: Nonspecific hepatomegaly. No focal hepatic lesion or evidence of biliary obstruction. Previous cholecystectomy. Darrion Bills MD Chest X-Ray 10/22/16 1619 Signed Impressions: Service Date/Time: Saturday, October 22, 2016 17:12 - CONCLUSION: The lungs are clear. Geovany Strong MD Upper Extremity CT 10/22/16 0000 Signed Impressions: Service Date/Time: Saturday, October 22, 2016 19:40 - CONCLUSION: Soft tissue induration, skin thickening, and subcutaneous collections of gas in the tissues adjacent to the medial armpit. No drainable fluid collections seen. Geovany Strong MD Objective Remarks GENERAL: This is a well-nourished, well-developed patient, in no apparent distress. CARDIOVASCULAR: Regular rate and rhythm without murmurs, gallops, or rubs. RESPIRATORY: Clear to auscultation. Breath sounds equal bilaterally. No wheezes , rales, or rhonchi. GASTROINTESTINAL: positive BS x4, no g/r/r, tender at RLQ MUSCULOSKELETAL: Extremities without clubbing, cyanosis, or edema. NEURO: Alert & Oriented x4 to person, place, time, situation. Moves all ext x4 skin: large dehisced wound at right axilla with packing, small dehisced wound at right axilla JENNIFER drain at right side of abdominal wound A/P Problem List: (1) Post op infection Status: Acute Plan: - comgmt with ID & Plastics - Pt is 61 yo with hx morbid obesity, dm, htn - She underwent brachioplasty sam and abdominoplasty 10/10 in [place]. - She fell over the dog 1 week prior to [place] admission and the axillary surgical wound both ripped open - worse on the right side. - She followed up once with her surgeon and was supposed to go back Monday - Pt presented to [place] with several days of f/c/rigors and likely sepsis. - Upon initial presentation, The right axillary wound had alot of foul smelling drainage. - wound cx from 10/22 swab from axilla growing MRSA - wound cx from abdominal seroma 10/24/16 growing MRSA - Vancomycin (10/22 - present) - Zosyn (10/22 - 10/24) - Drainage of abdominal seroma and placement of JENNIFER drain performed by Dr. Moss 10/24/16 - bulb removed from right abdominal drain. drainage continues from abdominal drain, - drainage from small open area at left lateral portion of abdominal wound - continue current treatment plan - Pt is volume overloaded. Pt septic on admission and received IVFs. Much improved from 10/27 - decreased lasix to 40mg IV daily - Case d/w Dr. Marlow (10/28/16). Okay to obtain PICC 10/31. Pt will need additional 2 weeks of vancomycin IV. - BMP, mag in AM - Case d/w Dr. Chapa (10/28/16). Appreciate assistance from Dr. Chapa. - Case d/w pt's surgeon, Dr. Hernandez ([facility]) on 10/24/16 - wound care - anticipate d/c in 2-3 days (2) Hyponatremia Status: Acute Plan: - resolved (3) Anemia, blood loss Status: Acute Plan: - improved - per pt's surgeon Dr. Hernandez, her pre-op CBC showed Hg 14 with HCT 43 - see above - pt received 2 units PRBCs - Pt's Hg increased 7.1 (10/24/16) and 9.0 (10/25/16), 8.7 (10/27/16) (4) DM (diabetes mellitus) Status: Chronic Plan: - metformin (5) HTN (hypertension) Status: Chronic Plan: - improving - atenolol 100mg daily - enalapril 20mg BID - continue to hold HCTZ - observe (6) Elevated transaminase level Status: Acute Plan: - d/t sepsis? - Abdominal US (10/24/16) --> NO biliary obstruction, previous cholecystectomy - overall improving, except alk phos 447 (10/27/16), 441 (10/29/16) - repeat LFTs 10/31 (7) Depressed Status: Chronic Problem Qualifiers (1) DM (diabetes mellitus): Qualified Code: E11.8 - Type 2 diabetes mellitus with complication, without long-term current use of insulin (2) HTN (hypertension): Qualified Code: I10 - Essential hypertension (3) Depressed: Qualified Code: F32.9 - Depression, unspecified depression type Maicol Ramey DO Oct 29, 2016 16:37
[2016-10-29 20:00] VITALS: BP 144/71; PULSE 67; RESP 18; TEMP 97.8; O2SAT 97
[2016-10-29] MEDS: ACETAMINOPHEN 325 MG TAB PO PRN (21:30)
[2016-10-30] VITALS: BP 158/75; PULSE 64; RESP 16; TEMP 97.2; O2SAT 98
[2016-10-30] MEDS: ENOXAPARIN SODIUM 30 MG/0.3 ML SYRINGE SQ SCH ×2 (00:52→22:55)
[2016-10-30] MEDS: VANCOMYCIN INJ 1,750 MG in SODIUM CHLORID 0.9% 500 ML INJ 500 ML IV SCH ×2 (00:53→11:57)
[2016-10-30 08:00] VITALS: BP 143/74; PULSE 74; RESP 15; TEMP 97.8; O2SAT 99
[2016-10-30] MEDS: ATENOLOL 100 MG TAB PO SCH (08:41)
[2016-10-30] MEDS: ENALAPRIL MALEATE 10 MG TAB PO SCH ×2 (08:41→22:55)
[2016-10-30] MEDS: VENLAFAXINE HCL XR 75 MG CAP PO SCH (08:41)
[2016-10-30] MEDS: TIMOLOL MALEATE 0.5% OPHT SOLN 5 ML BTL EACH EYE SCH ×2 (08:41→21:00)
[2016-10-30] MEDS: NIFEdipine 60 MG SUSTAINED RELEASE TAB PO SCH (08:42)
[2016-10-30] MEDS: POTASSIUM CHLORIDE 20 MEQ CONTROLLED RELEASE TAB PO SCH ×3 (08:42→22:54)
[2016-10-30] MEDS: ASPIRIN EC 81 MG TABEC PO SCH (08:42)
[2016-10-30] MEDS: FUROSEMIDE 40 MG/4 ML VIAL IV PUSH SCH (08:43)
[2016-10-30] MEDS: LEVOTHYROXINE SODIUM 112 MCG TAB PO SCH (08:52)
[2016-10-30] MEDS: POVIDONE IODINE 10% SOLN 480 ML BTL TOPICAL SCH (08:53)
[2016-10-30] MEDS: SODIUM HYPOCHLORITE 0.25% 500 ML BTL TOPICAL SCH (08:53)
[2016-10-30 12:00] VITALS: BP 130/58; PULSE 63; RESP 17; TEMP 96.8; O2SAT 100
[2016-10-30] MEDS: ACETAMINOPHEN 325 MG TAB PO PRN ×2 (14:27→22:59)
--- NOTE | 2016-10-30 15:03 | HHI.PR ---
Subjective Remarks No new complaints. Objective Vitals Vital Signs Date Time Temp Pulse Resp B/P Pulse Ox O2 Delivery O2 Flow Rate FiO2 10/30/16 12:00 96.8 63 17 130/58 100 10/30/16 08:00 97.8 74 15 143/74 99 10/30/16 00:08 18 10/30/16 00:00 97.2 64 16 158/75 98 10/29/16 20:00 97.8 67 18 144/71 97 10/29/16 16:00 98.3 62 17 142/67 98 10/29/16 10/29/16 10/30/16 15:00 23:00 07:00 Intake Total 240 ml 1002 ml 414 ml Output Total 10 ml Balance 240 ml 1002 ml 404 ml Intake Oral 240 ml 480 ml 240 ml IV Total 522 ml 174 ml Drainage Total 10 ml # Voids 3 2 1 # Bowel Movements 0 0 0 Result Diagram: 10/29/16 0613 10/29/16 0613 Imaging Last Impressions Abdomen X-Ray 10/25/16 0000 Signed Impressions: Service Date/Time: Tuesday, October 25, 2016 13:26 - CONCLUSION: No dilated loops of small bowel seen. Geovany Strong MD Abdomen Ultrasound 10/24/16 1400 Signed Impressions: Service Date/Time: Monday, October 24, 2016 14:14 - CONCLUSION: Nonspecific hepatomegaly. No focal hepatic lesion or evidence of biliary obstruction. Previous cholecystectomy. Darrion Bills MD Chest X-Ray 10/22/16 1619 Signed Impressions: Service Date/Time: Saturday, October 22, 2016 17:12 - CONCLUSION: The lungs are clear. Geovany Strong MD Upper Extremity CT 10/22/16 0000 Signed Impressions: Service Date/Time: Saturday, October 22, 2016 19:40 - CONCLUSION: Soft tissue induration, skin thickening, and subcutaneous collections of gas in the tissues adjacent to the medial armpit. No drainable fluid collections seen. Geovany Strong MD Objective Remarks GENERAL: This is a well-nourished, well-developed patient, in no apparent distress. CARDIOVASCULAR: Regular rate and rhythm without murmurs, gallops, or rubs. RESPIRATORY: Clear to auscultation. Breath sounds equal bilaterally. No wheezes , rales, or rhonchi. GASTROINTESTINAL: positive BS x4, no g/r/r, tender at RLQ MUSCULOSKELETAL: Extremities without clubbing, cyanosis, or edema. NEURO: Alert & Oriented x4 to person, place, time, situation. Moves all ext x4 skin: large dehisced wound at right axilla with packing, small dehisced wound at right axilla JENNIFER drain at right side of abdominal wound, small open area at left side of abdominal wound A/P Problem List: (1) Post op infection Status: Acute Plan: - comgmt with ID & Plastics - Pt is 61 yo with hx morbid obesity, dm, htn - She underwent brachioplasty sam and abdominoplasty 10/10 in [place]. - She fell over the dog 1 week prior to [place] admission and the axillary surgical wound both ripped open - worse on the right side. - She followed up once with her surgeon and was supposed to go back Monday - Pt presented to [place] with several days of f/c/rigors and likely sepsis. - Upon initial presentation, The right axillary wound had alot of foul smelling drainage. - wound cx from 10/22 swab from axilla growing MRSA - wound cx from abdominal seroma 10/24/16 growing MRSA - Vancomycin (10/22 - present) - Zosyn (10/22 - 10/24) - Drainage of abdominal seroma and placement of JENNIFER drain performed by Dr. Moss 10/24/16 - drainage continues from abdominal drain, - drainage from small open area at left lateral portion of abdominal wound - continue current treatment plan - Pt is volume overloaded. Pt septic on admission and received IVFs. Much improved from 10/27 - decreased lasix to 40mg IV daily - Case d/w Dr. Marlow (10/28/16). Okay to obtain PICC 10/31. Pt will need additional 2 weeks of vancomycin IV. - LFTs, BMP, mag in AM - Case d/w Dr. Chapa (10/28/16). Appreciate assistance from Dr. Chapa. - Case d/w pt's surgeon, Dr. Hernandez ([facility]) on 10/24/16 - wound care - anticipate d/c in 2-3 days (2) Hyponatremia Status: Acute Plan: - resolved (3) Anemia, blood loss Status: Acute Plan: - improved - per pt's surgeon Dr. Hernandez, her pre-op CBC showed Hg 14 with HCT 43 - see above - pt received 2 units PRBCs - Pt's Hg increased 7.1 (10/24/16) and 9.0 (10/25/16), 8.7 (10/27/16), 10.4 (10/29/16) (4) DM (diabetes mellitus) Status: Chronic Plan: - metformin (5) HTN (hypertension) Status: Chronic Plan: - improving - atenolol 100mg daily - enalapril 20mg BID - continue to hold HCTZ - observe (6) Elevated transaminase level Status: Acute Plan: - d/t sepsis? - Abdominal US (10/24/16) --> NO biliary obstruction, previous cholecystectomy - overall improving, except alk phos 447 (10/27/16), 441 (10/29/16) - repeat LFTs 10/31 (7) Depressed Status: Chronic Problem Qualifiers (1) DM (diabetes mellitus): Qualified Code: E11.8 - Type 2 diabetes mellitus with complication, without long-term current use of insulin (2) HTN (hypertension): Qualified Code: I10 - Essential hypertension (3) Depressed: Qualified Code: F32.9 - Depression, unspecified depression type Maicol Ramey DO Oct 30, 2016 15:02
[2016-10-30 16:00] VITALS: BP 126/75; PULSE 68; RESP 16; TEMP 97.9; O2SAT 98
[2016-10-30 20:00] VITALS: BP 140/67; PULSE 69; RESP 16; TEMP 98; O2SAT 97
[2016-10-31] VITALS: BP 145/68; PULSE 66; RESP 16; TEMP 97.7; O2SAT 97
[2016-10-31] MEDS: VANCOMYCIN INJ 1,750 MG in SODIUM CHLORID 0.9% 500 ML INJ 500 ML IV SCH ×2 (00:30→16:39)
[2016-10-31 05:37] LABS: AUTOMATED NEUTROPHIL # 4.5 TH/MM3 (1.8-7.7); BASOPHIL # 0.1 TH/MM3 (0-0.2); EOSINOPHIL # 0.1 TH/MM3 (0-0.4); EOSINOPHIL % 1.4 % (0.0-4.0); HEMATOCRIT 24.6 % (35.0-46.0); LYMPH % 29.9 % (9.0-44.0); LYMPHOCYTE # 2.2 TH/MM3 (1.0-4.8); MEAN CELL VOLUME 85.6 FL (80.0-100.0); MEAN CORPUSCULAR HEMOGLOBIN 28.8 PG (27.0-34.0); MEAN CORPUSCULAR HGB CONC 33.6 % (32.0-36.0); MONO % 6.5 % (0.0-8.0); NEUT % 61.2 % (16.0-70.0); PLATELET COUNT 474 TH/MM3 (150-450); RED BLOOD COUNT 2.87 MIL/MM3 (4.00-5.30); RED CELL DISTRIBUTION WIDTH 17.4 % (11.6-17.2); WHITE BLOOD COUNT 7.4 TH/MM3 (4.0-11.0)
[2016-10-31 05:55] LABS: BICARBONATE 24.4 MEQ/L (21.0-32.0); MAGNESIUM 1.9 MG/DL (1.5-2.5); POTASSIUM 3.7 MEQ/L (3.5-5.1)
[2016-10-31] MEDS: ACETAMINOPHEN 325 MG TAB PO PRN ×2 (05:59→15:04)
[2016-10-31 06:03] LABS: INDIRECT BILIRUBIN 0.2 MG/DL (0.0-0.8); TOTAL BILIRUBIN ADULT 0.5 MG/DL (0.2-1.0)
[2016-10-31 06:07] LABS: HEMO FLAGS AUTO DIFF
[2016-10-31 08:00] VITALS: BP 129/58; PULSE 76; RESP 16; TEMP 97.5; O2SAT 98
[2016-10-31 08:10] LABS: BANDS 2 % (0-6); BASOPHILS 1 % (0-2); EOSINOPHILS 2 % (0-4); METAMYELOCYTES 2 % (0-1); MYELOCYTES 4 % (0-0); NEUTROPHIL # MANUAL DIFF 4.4 TH/MM3 (1.8-7.7); PLATELET ESTIMATE SMEAR HIGH (NORMAL); PLATELET MORPHOLOGY ENLARGED (NORMAL); POLYS (SEG NEUTROPHILS) 52 % (16-70); WBC DIFF SAMPLE 100
[2016-10-31 08:11] LABS: SCAN/DIFF FINAL DIFF MANUAL
[2016-10-31] MEDS: FUROSEMIDE 40 MG/4 ML VIAL IV PUSH SCH (10:09)
[2016-10-31] MEDS: POTASSIUM CHLORIDE 20 MEQ CONTROLLED RELEASE TAB PO SCH ×3 (10:09→21:29)
--- NOTE | 2016-10-31 10:10 | HHI.PR ---
Subjective Remarks Pt complains that she has been having some vaginal itching and burning over the last few days and feels that she has a yeast infection She also reports that she has had a lot of issues with leakage of fluid around her drains in the lower abdomen and was draining all over her clothes and bedding all weekend. Pt has been afebrile She is overall feeling better. Objective Vitals Vital Signs Date Time Temp Pulse Resp B/P Pulse Ox O2 Delivery O2 Flow Rate FiO2 10/31/16 08:00 97.5 76 16 129/58 98 10/31/16 01:26 16 10/31/16 00:00 97.7 66 16 145/68 97 10/30/16 20:00 98.0 69 16 140/67 97 10/30/16 16:00 97.9 68 16 126/75 98 10/30/16 12:00 96.8 63 17 130/58 100 10/30/16 10/30/16 10/31/16 15:00 23:00 07:00 Intake Total 480 ml 480 ml 895 ml Output Total 310 ml 0 ml Balance 480 ml 170 ml 895 ml Intake Oral 480 ml 480 ml 480 ml IV Total 0 ml 415 ml Output Urine Total 300 ml Drainage Total 10 ml 0 ml # Voids 6 5 # Bowel Movements 0 0 0 Result Diagram: 10/31/16 0340 10/31/16 0340 Other Results Laboratory Tests Test 10/31/16 03:40 White Blood Count 7.4 TH/MM3 Red Blood Count 2.87 MIL/MM3 Hemoglobin 8.3 GM/DL Hematocrit 24.6 % Mean Corpuscular Volume 85.6 FL Mean Corpuscular Hemoglobin 28.8 PG Mean Corpuscular Hemoglobin 33.6 % Concent Red Cell Distribution Width 17.4 % Platelet Count 474 TH/MM3 Mean Platelet Volume 8.0 FL Neutrophils (%) (Auto) 61.2 % Lymphocytes (%) (Auto) 29.9 % Monocytes (%) (Auto) 6.5 % Eosinophils (%) (Auto) 1.4 % Basophils (%) (Auto) 1.0 % Neutrophils # (Auto) 4.5 TH/MM3 Lymphocytes # (Auto) 2.2 TH/MM3 Monocytes # (Auto) 0.5 TH/MM3 Eosinophils # (Auto) 0.1 TH/MM3 Basophils # (Auto) 0.1 TH/MM3 CBC Comment AUTO DIFF Differential Total Cells 100 Counted Neutrophils % (Manual) 52 % Band Neutrophils % 2 % Lymphocytes % 29 % Monocytes % 8 % Eosinophils % 2 % Basophils % 1 % Neutrophils # (Manual) 4.4 TH/MM3 Metamyelocytes 2 % Myelocytes 4 % Differential Comment FINAL DIFF MANUAL Platelet Estimate HIGH Platelet Morphology Comment ENLARGED Sodium Level 137 MEQ/L Potassium Level 3.7 MEQ/L Chloride Level 103 MEQ/L Carbon Dioxide Level 24.4 MEQ/L Anion Gap 10 MEQ/L Blood Urea Nitrogen 15 MG/DL Creatinine 0.22 MG/DL Estimat Glomerular Filtration 321 ML/MIN Rate Random Glucose 93 MG/DL Calcium Level 7.7 MG/DL Magnesium Level 1.9 MG/DL Total Bilirubin 0.5 MG/DL Direct Bilirubin 0.3 MG/DL Indirect Bilirubin 0.2 MG/DL Aspartate Amino Transf 13 U/L (AST/SGOT) Alanine Aminotransferase 25 U/L (ALT/SGPT) Alkaline Phosphatase 290 U/L Total Protein 5.5 GM/DL Albumin 2.1 GM/DL Imaging Last Impressions Abdomen X-Ray 10/25/16 0000 Signed Impressions: Service Date/Time: Tuesday, October 25, 2016 13:26 - CONCLUSION: No dilated loops of small bowel seen. Geovany Strong MD Abdomen Ultrasound 10/24/16 1400 Signed Impressions: Service Date/Time: Monday, October 24, 2016 14:14 - CONCLUSION: Nonspecific hepatomegaly. No focal hepatic lesion or evidence of biliary obstruction. Previous cholecystectomy. Darrion Bills MD Chest X-Ray 10/22/16 1619 Signed Impressions: Service Date/Time: Saturday, October 22, 2016 17:12 - CONCLUSION: The lungs are clear. Geovany Strong MD Upper Extremity CT 10/22/16 0000 Signed Impressions: Service Date/Time: Saturday, October 22, 2016 19:40 - CONCLUSION: Soft tissue induration, skin thickening, and subcutaneous collections of gas in the tissues adjacent to the medial armpit. No drainable fluid collections seen. Geovany Strong MD Objective Remarks General: NAD, AAOx3 Chest: CTA Cardiac: Regular Abd: + BS, soft, tender at RLQ, drain on right hip in place with minimal output in the bulb, small open area at left side of abdominal wound Ext: No edema in LE Skin: Dehisced wound at right axilla with granulation tissue noted, smaller dehisced wound at left axilla about the size of a dime with granulation tissue noted, some erythema of the surrounding skin related to the tape A/P Problem List: (1) Post op infection Status: Acute Plan: - comgmt with ID & Plastics - Pt is 61 yo with hx morbid obesity, dm, htn - She underwent brachioplasty sam and abdominoplasty 10/10 in [place]. - She fell over the dog 1 week prior to [place] admission and the axillary surgical wound both ripped open - worse on the right side. - She followed up once with her surgeon and was supposed to go back Monday - Pt presented to [place] with several days of f/c/rigors and likely sepsis. - Upon initial presentation, The right axillary wound had alot of foul smelling drainage. - Wound cx from 10/22 swab from axilla growing MRSA\ - Drainage of abdominal seroma and placement of CHRISTINA drain performed by Dr. Moss 10/24/16 - Wound cx from abdominal seroma 10/24/16 growing MRSA - Vancomycin (10/22 - present) - Zosyn (10/22 - 10/24) - Case discussed between Dr. Ramey and Dr. Chapa (10/28/16). Appreciate assistance from Dr. Chapa. - Case discussed between Dr. Ramey and pt's surgeon, Dr. Hernandez ([facility]) on 10/24/16 - Drainage continues from abdominal drain, and drainage from small open area at left lateral portion of abdominal wound - continue current treatment plan - Pt was noted to be volume overloaded likely related to IVF she received as she was felt to be possibly septic on admission - Pt has been receiving IV Lasix with significant clinical improvement from 10/27 - Lasix decreased to 40mg IV daily on 10/29, Renal function is stable. - Okay to obtain PICC 10/31. Will need to discuss with PICC team placement of the PICC line with her recent bilateral bronchoplasties and sutures still in place. Pt will need additional 2 weeks of vancomycin IV per ID. - d/w PICC team and they will come evaluate her today to see iff PICC line placement will be a viable option - Pt complains of vaginal itching and discomfort and feels that she has a yeast infection. We will give a dose of Diflucan today - LFTs, BMP, mag in AM - wound care - Anticipate d/c in 1-2 days (2) Hyponatremia Status: Acute Plan: - resolved (3) Anemia, blood loss Status: Acute Plan: - per pt's surgeon Dr. Hernandez, her pre-op CBC showed Hg 14 with HCT 43 - pt received 2 units PRBCs on 10/24/16 - Pt's Hg 7.1 (10/24/16) --> 9.0 (10/25/16) --> 8.7 (10/27/16) -->10.4 (10/29/16) --> 8.3 (10/31/16) - Repeat CBC tomorrow and if still trending down will likely need to give more PRBCs (4) DM (diabetes mellitus) Status: Chronic Plan: - metformin (5) HTN (hypertension) Status: Chronic Plan: - improving - atenolol 100mg daily - enalapril 20mg BID - continue to hold HCTZ - observe (6) Elevated transaminase level Status: Acute Plan: - d/t sepsis? - Abdominal US (10/24/16) --> NO biliary obstruction, previous cholecystectomy - overall improving, except alk phos 447 (10/27/16), 441 (10/29/16) - repeat LFTs 10/31 with continued improvement in Alk Phos to 290 (7) Depressed Status: Chronic Assessment and Plan Patient examined. Assessment and plan formulated with Shanique Martin PA-C. I agree with the above. axillary open wounds and abdomen wound. christina drain leaking around the exit site. axillary packed discussed with ID...plan for 2 weeks iv vanco. consult IR for picc. await plastic recommendations, d/c and f/u timeline. Problem Qualifiers (1) DM (diabetes mellitus): Qualified Code: E11.8 - Type 2 diabetes mellitus with complication, without long-term current use of insulin (2) HTN (hypertension): Qualified Code: I10 - Essential hypertension (3) Depressed: Qualified Code: F32.9 - Depression, unspecified depression type Shanique Martin Oct 31, 2016 10:10 Jacques Reyes MD Oct 31, 2016 14:12
[2016-10-31] MEDS: ENALAPRIL MALEATE 10 MG TAB PO SCH ×2 (10:11→21:29)
[2016-10-31] MEDS: NIFEdipine 60 MG SUSTAINED RELEASE TAB PO SCH (10:11)
[2016-10-31] MEDS: LEVOTHYROXINE SODIUM 112 MCG TAB PO SCH (10:11)
[2016-10-31] MEDS: TIMOLOL MALEATE 0.5% OPHT SOLN 5 ML BTL EACH EYE SCH ×2 (10:11→21:00)
[2016-10-31] MEDS: VENLAFAXINE HCL XR 75 MG CAP PO SCH (10:11)
[2016-10-31] MEDS: ATENOLOL 100 MG TAB PO SCH (10:12)
[2016-10-31] MEDS: ASPIRIN EC 81 MG TABEC PO SCH (10:12)
[2016-10-31] MEDS ORDERED: FLUCONAZOLE 100 MG TAB PO ONE (10:15)
[2016-10-31] MEDS: SODIUM HYPOCHLORITE 0.25% 500 ML BTL TOPICAL SCH (10:24)
[2016-10-31] MEDS: POVIDONE IODINE 10% SOLN 480 ML BTL TOPICAL SCH (10:24)
[2016-10-31 12:00] VITALS: BP 143/75; PULSE 59; RESP 17; TEMP 97.8; O2SAT 100
--- NOTE | 2016-10-31 12:22 | HHI.IDPN ---
Subjective Subjective Remarks 61 Y/O female S/P sam brachial plasty and abdominoplasty, admitted with fevers and wound infection Notes reviewed Temps ok JENNIFER not working - leaking around the site where JENNIFER drain is located, soaking her gown Decreased drainage from the L side Antibiotics Vancomycin Lines PIV Past Medical History Reviewed Allergies: Coded Allergies: *MDRO Multi-Drug Resistant Organism (Verified Adverse Reaction, Unknown, MRSA, 10/24/16) MRSA (wound) - 10/22/16 Objective . Vital Signs Date Time Temp Pulse Resp B/P Pulse Ox O2 Delivery O2 Flow Rate FiO2 10/31/16 12:00 97.8 59 17 143/75 100 10/31/16 08:00 97.5 76 16 129/58 98 10/31/16 01:26 16 10/31/16 00:00 97.7 66 16 145/68 97 10/30/16 20:00 98.0 69 16 140/67 97 10/30/16 16:00 97.9 68 16 126/75 98 10/30/16 10/30/16 10/31/16 15:00 23:00 07:00 Intake Total 480 ml 480 ml 895 ml Output Total 310 ml 0 ml Balance 480 ml 170 ml 895 ml Intake Oral 480 ml 480 ml 480 ml IV Total 0 ml 415 ml Output Urine Total 300 ml Drainage Total 10 ml 0 ml # Voids 6 5 # Bowel Movements 0 0 0 . Laboratory Tests Test 10/31/16 03:40 White Blood Count 7.4 TH/MM3 Red Blood Count 2.87 MIL/MM3 Hemoglobin 8.3 GM/DL Hematocrit 24.6 % Mean Corpuscular Volume 85.6 FL Mean Corpuscular Hemoglobin 28.8 PG Mean Corpuscular Hemoglobin 33.6 % Concent Red Cell Distribution Width 17.4 % Platelet Count 474 TH/MM3 Mean Platelet Volume 8.0 FL Neutrophils (%) (Auto) 61.2 % Lymphocytes (%) (Auto) 29.9 % Monocytes (%) (Auto) 6.5 % Eosinophils (%) (Auto) 1.4 % Basophils (%) (Auto) 1.0 % Neutrophils # (Auto) 4.5 TH/MM3 Lymphocytes # (Auto) 2.2 TH/MM3 Monocytes # (Auto) 0.5 TH/MM3 Eosinophils # (Auto) 0.1 TH/MM3 Basophils # (Auto) 0.1 TH/MM3 CBC Comment AUTO DIFF Differential Total Cells 100 Counted Neutrophils % (Manual) 52 % Band Neutrophils % 2 % Lymphocytes % 29 % Monocytes % 8 % Eosinophils % 2 % Basophils % 1 % Neutrophils # (Manual) 4.4 TH/MM3 Metamyelocytes 2 % Myelocytes 4 % Differential Comment FINAL DIFF MANUAL Platelet Estimate HIGH Platelet Morphology Comment ENLARGED Laboratory Tests Test 10/31/16 03:40 Sodium Level 137 MEQ/L Potassium Level 3.7 MEQ/L Chloride Level 103 MEQ/L Carbon Dioxide Level 24.4 MEQ/L Anion Gap 10 MEQ/L Blood Urea Nitrogen 15 MG/DL Creatinine 0.22 MG/DL Estimat Glomerular Filtration 321 ML/MIN Rate Random Glucose 93 MG/DL Calcium Level 7.7 MG/DL Magnesium Level 1.9 MG/DL Total Bilirubin 0.5 MG/DL Direct Bilirubin 0.3 MG/DL Indirect Bilirubin 0.2 MG/DL Aspartate Amino Transf 13 U/L (AST/SGOT) Alanine Aminotransferase 25 U/L (ALT/SGPT) Alkaline Phosphatase 290 U/L Total Protein 5.5 GM/DL Albumin 2.1 GM/DL Imaging Abdomen Ultrasound 10/24/16 1400 Signed Impressions: Service Date/Time: Monday, October 24, 2016 14:14 - CONCLUSION: Nonspecific hepatomegaly. No focal hepatic lesion or evidence of biliary obstruction. Previous cholecystectomy. Darrion Bills MD Chest X-Ray 10/22/16 1619 Signed Impressions: Service Date/Time: Saturday, October 22, 2016 17:12 - CONCLUSION: The lungs are clear. Geovany Strong MD Upper Extremity CT 10/22/16 0000 Signed Impressions: Service Date/Time: Saturday, October 22, 2016 19:40 - CONCLUSION: Soft tissue induration, skin thickening, and subcutaneous collections of gas in the tissues adjacent to the medial armpit. No drainable fluid collections seen. Geovany Strong MD Physical Exam GENERAL: awake and alert, NAD SKIN: Warm and dry. No generalized rash, no ecchymoses and no evidence of embolic lesions. HEENT: No petechia or hemorrhage. No scleral icterus. No injection or drainage. Mucous membranes pink and moist. No oral lesions noted. NECK: Trachea midline. Supple and not tender, no meningeal signs CARDIOVASCULAR: Regular rate and rhythm. No murmurs, rubs or gallops heard RESPIRATORY: Clear to auscultation. Decreased BS at bases ABDOMEN: Has the abdominoplasty incision, healing well, no redness, no induration. R lateral area has a JENNIFER drain in place. Small open wound on L lateral with min drainage. Not tender, not distended. EXTREMITIES: No clubbing, cyanosis, or calf tenderness. Incisions in R arm dry and healing well. wound in R axilla with packing, no surrounding cellulitis. Healing incision in L arm, and smaller open wound with packing, no cellulitis. NEUROLOGICAL: Non-focal. PSYCHIATRIC: Normal affect, calm and cooperative. LINE: No evidence of infection Assessment & Plan Remarks IMPRESSION Sepsis on presentation due to post-op wound infections sam brachioplasty, C/S MRSA - resolved Wound dehiscence both axilla incision S/P brachioplasty, C/S MRSA S/P abdominoplasty with postop hematoma, C/S also with MRSA Abnormal LFTs, ?due to sepsis, improving - no N/V - no pain except over the incisions RECOMMENDATION Continue IV Vancomycin for MRSA wound infection abdominoplasty and both brachioplasty - pharmacy doing dosing, aim for 15-20 - will monitor labs while on IV Abx: Vanco trough, CBC and creatinine Will give about 2 weeks IV Abx on D/C PICC D/C once Abx arranged D/W Dr Fair Spoke with Shavonne Magallanes MD Oct 31, 2016 12:22
--- NOTE | 2016-10-31 12:24 | HHI.FF ---
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 [] May leave port accessed during therapy. [] May leave peripheral site accessed for duration of therapy. [x] If patient has SOB or respiratory distress, check oxygen saturation. If less than 90% or clinical signs of respiratory distress, administer oxygen at 2 L/min. via nasal cannula and notify physician. [x] Anaphylaxis/Reaction orders: * Stop infusion. * Keep IV line open with saline flush. * Notify physician. * Monitor vital signs every 15 minutes until symptoms resolve. * Check Oxygen saturation; Oxygen at 2 L/min. via nasal cannula if less than 90% or clinical signs of respiratory distress. * Administer diphenhydramine (Benadryl) 25 mg IV STAT, (unless patient has received as pre-med). May repeat once, if necessary. * Solu-Cortef 250 mg IVP over 30-60 seconds, use 100 mg vials for each dissolution. * Epinephrine (1mg/1 ml) 0.3 mg subcutaneously or IVP now with any signs of respiratory distress. * Check with physician for new additional pre-med orders if patient is re- challenged or re-treated. [x] May remove PICC line when treatment complete, after confirming with Physician. [x] If the patient is admitted to the hospital, the ED, or transferred via [facility] , complete transfer form including medication reconciliation order sheet. Laboratory Tests Weekly Labs: CBC w/diff, Creatinine, Vancomycin Trough (Labs every Monday - copy to me please, call me with results of vanco trough) Shavonne Marlow MD Oct 31, 2016 12:23
--- NOTE | 2016-10-31 15:58 | PD.RAD ---
Post Procedure Progress Note Pre Procedure Diagnosis: (1) Sepsis Post Procedure Diagnosis: (1) Sepsis Procedure Date: Oct 31, 2016 Supervising Radiologist: Amaury Beard Anesthesia: Local Plan of Activity Patient to Unit: Nursing Unit Patient Condition: Good Additional Comments: Picc placed without difficulty Catheter 41cm length Tip at level of the svc See PACS Report for procedural detail/treatment Amaury Beard MD Oct 31, 2016 15:58
[2016-10-31] MEDS ORDERED: SODIUM CHLORIDE 0.9% FLUSH 10 ML FLUSH IVF PRN ×2 (16:00)
--- NOTE | 2016-10-31 16:38 | RADRPT ---
EXAM DATE/TIME: 10/31/2016 15:55 [facility] COMPARISON: No previous studies available for comparison. INDICATIONS : Patient with a history of wound infection. MEDICAL HISTORY : HTN Diabetes Depression Hypothyroidism SURGICAL HISTORY : Breast reconstruction Bilateral brachioplasty Abdomenoplasty ENCOUNTER: Initial ACUITY: 1 week PAIN SCORE: 1/10 LOCATION: Bilateral abdomen FLUORO TIME: 0.5 minutes IMAGE SERIES: 1 ACCESS: Right basilic vein DEVICE(S): 1.) 4 [place] single lumen 42 cm Power PICC PROCEDURE : 1. Ultrasound guidance for venous catheterization. 2. Fluoroscopic guidance. 3. Ultrasound & fluoroscopic guided central venous Power PICC line placement. The risks, benefits and alternatives to the procedure were explained and verbal and written consent w as obtained. The site was prepped in sterile fashion. Full sterile technique was used, including ca p, mask, sterile gloves and gown and a large sterile sheet. Hand hygiene and 2% chlorhexidine prep w as utilized per protocol for cutaneous antisepsis with appropriate dry time for site. The skin and s ubcutaneous tissues were infiltrated with local anesthetic solution. Under direct ultrasound guidance, a suitable vein was accessed and a measuring guidewire was introduc ed and positioned in the central venous system. The ultrasound images depicting access guidance were saved and stored to PACS for permanent record. A Power Injectable PICC line was cut to prescribed length and introduced, positioned with tip at the cavoatrial junction level. The line was flushed and secured per protocol. CONCLUSION: 1. Uncomplicated central venous Power PICC line placement. 2. The PICC line can be used immediately. Amaury Beard MD on October 31, 2016 at 16:36 Board Certified Radiologist. This report was verified electronically.
[2016-10-31 20:00] VITALS: BP 122/59; PULSE 69; RESP 20; TEMP 98.1; O2SAT 95
[2016-10-31] MEDS: ENOXAPARIN SODIUM 30 MG/0.3 ML SYRINGE SQ SCH (21:29)
[2016-11-01] VITALS: BP 133/71; PULSE 72; RESP 19; TEMP 97.9; O2SAT 98
[2016-11-01] MEDS: VANCOMYCIN INJ 1,750 MG in SODIUM CHLORID 0.9% 500 ML INJ 500 ML IV SCH ×3 (00:38→22:23)
[2016-11-01 08:00] VITALS: BP 117/67; PULSE 70; RESP 16; TEMP 96.7; O2SAT 98
[2016-11-01] MEDS: FUROSEMIDE 40 MG/4 ML VIAL IV PUSH SCH (08:59)
[2016-11-01] MEDS: ENALAPRIL MALEATE 10 MG TAB PO SCH ×2 (09:00→22:24)
[2016-11-01] MEDS: POTASSIUM CHLORIDE 20 MEQ CONTROLLED RELEASE TAB PO SCH ×2 (09:00)
[2016-11-01] MEDS: LEVOTHYROXINE SODIUM 112 MCG TAB PO SCH (09:00)
[2016-11-01] MEDS: ASPIRIN EC 81 MG TABEC PO SCH (09:00)
[2016-11-01] MEDS: VENLAFAXINE HCL XR 75 MG CAP PO SCH (09:00)
[2016-11-01] MEDS: NIFEdipine 60 MG SUSTAINED RELEASE TAB PO SCH (09:00)
[2016-11-01] MEDS: SODIUM CHLORIDE 0.9% FLUSH 10 ML FLUSH IVF SCH (09:00)
[2016-11-01] MEDS: ATENOLOL 100 MG TAB PO SCH (09:00)
[2016-11-01] MEDS: POVIDONE IODINE 10% SOLN 480 ML BTL TOPICAL SCH (09:01)
[2016-11-01] MEDS: TIMOLOL MALEATE 0.5% OPHT SOLN 5 ML BTL EACH EYE SCH ×2 (09:01→21:00)
[2016-11-01] MEDS: SODIUM HYPOCHLORITE 0.25% 500 ML BTL TOPICAL SCH (09:01)
[2016-11-01] MEDS ORDERED: EPIN1INJ21 IV PUSH (09:09)
[2016-11-01] MEDS ORDERED: SOLU250I IV PUSH (09:09)
[2016-11-01] MEDS ORDERED: VANC10IN IV (09:09)
[2016-11-01] MEDS ORDERED: EPIN1INJ21 SQ (09:09)
--- NOTE | 2016-11-01 09:25 | HHI.PR ---
Subjective Remarks Pt had PICC line placed yesterday She reports continued drainage from around the abdominal drain and is getting very frustrated with this Pt has been afebrile. Objective Vitals Vital Signs Date Time Temp Pulse Resp B/P Pulse Ox O2 Delivery O2 Flow Rate FiO2 11/01/16 08:00 96.7 70 16 117/67 98 11/01/16 00:00 97.9 72 19 133/71 98 10/31/16 20:00 98.1 69 20 122/59 95 10/31/16 12:00 97.8 59 17 143/75 100 10/31/16 10/31/16 11/01/16 15:00 23:00 07:00 Intake Total 340 ml 740 ml 240 ml Output Total 10 ml Balance 340 ml 730 ml 240 ml Intake Oral 340 ml 240 ml 240 ml IV Total 0 ml 500 ml 0 ml Drainage Total 10 ml # Voids 4 2 2 # Bowel Movements 1 0 0 Result Diagram: 10/31/16 0340 10/31/16 0340 Other Results Laboratory Tests Test 10/31/16 10/31/16 03:40 13:59 White Blood Count 7.4 TH/MM3 Red Blood Count 2.87 MIL/MM3 Hemoglobin 8.3 GM/DL Hematocrit 24.6 % Mean Corpuscular Volume 85.6 FL Mean Corpuscular Hemoglobin 28.8 PG Mean Corpuscular Hemoglobin 33.6 % Concent Red Cell Distribution Width 17.4 % Platelet Count 474 TH/MM3 Mean Platelet Volume 8.0 FL Neutrophils (%) (Auto) 61.2 % Lymphocytes (%) (Auto) 29.9 % Monocytes (%) (Auto) 6.5 % Eosinophils (%) (Auto) 1.4 % Basophils (%) (Auto) 1.0 % Neutrophils # (Auto) 4.5 TH/MM3 Lymphocytes # (Auto) 2.2 TH/MM3 Monocytes # (Auto) 0.5 TH/MM3 Eosinophils # (Auto) 0.1 TH/MM3 Basophils # (Auto) 0.1 TH/MM3 CBC Comment AUTO DIFF Differential Total Cells 100 Counted Neutrophils % (Manual) 52 % Band Neutrophils % 2 % Lymphocytes % 29 % Monocytes % 8 % Eosinophils % 2 % Basophils % 1 % Neutrophils # (Manual) 4.4 TH/MM3 Metamyelocytes 2 % Myelocytes 4 % Differential Comment FINAL DIFF MANUAL Platelet Estimate HIGH Platelet Morphology Comment ENLARGED Sodium Level 137 MEQ/L Potassium Level 3.7 MEQ/L Chloride Level 103 MEQ/L Carbon Dioxide Level 24.4 MEQ/L Anion Gap 10 MEQ/L Blood Urea Nitrogen 15 MG/DL Creatinine 0.22 MG/DL Estimat Glomerular Filtration 321 ML/MIN Rate Random Glucose 93 MG/DL Calcium Level 7.7 MG/DL Magnesium Level 1.9 MG/DL Total Bilirubin 0.5 MG/DL Direct Bilirubin 0.3 MG/DL Indirect Bilirubin 0.2 MG/DL Aspartate Amino Transf 13 U/L (AST/SGOT) Alanine Aminotransferase 25 U/L (ALT/SGPT) Alkaline Phosphatase 290 U/L Total Protein 5.5 GM/DL Albumin 2.1 GM/DL Vancomycin Level Trough 17.2 MCG/ML Imaging Last Impressions Abdomen X-Ray 10/25/16 0000 Signed Impressions: Service Date/Time: Tuesday, October 25, 2016 13:26 - CONCLUSION: No dilated loops of small bowel seen. Geovany Strong MD Abdomen Ultrasound 10/24/16 1400 Signed Impressions: Service Date/Time: Monday, October 24, 2016 14:14 - CONCLUSION: Nonspecific hepatomegaly. No focal hepatic lesion or evidence of biliary obstruction. Previous cholecystectomy. Darrion Bills MD Chest X-Ray 10/22/16 1619 Signed Impressions: Service Date/Time: Saturday, October 22, 2016 17:12 - CONCLUSION: The lungs are clear. Geovany Strong MD Upper Extremity CT 10/22/16 0000 Signed Impressions: Service Date/Time: Saturday, October 22, 2016 19:40 - CONCLUSION: Soft tissue induration, skin thickening, and subcutaneous collections of gas in the tissues adjacent to the medial armpit. No drainable fluid collections seen. Geovany Strong MD Objective Remarks General: NAD, AAOx3 Chest: CTA Cardiac: Regular Abd: + BS, soft, tender at RLQ, drain on right hip in place with minimal output in the bulb, small open area at left side of abdominal wound Ext: No edema in LE Skin: Dehisced wound at right axilla with granulation tissue noted, smaller dehisced wound at left axilla about the size of a dime with granulation tissue noted, some erythema of the surrounding skin related to the tape A/P Problem List: (1) Post op infection Status: Acute Plan: - comgmt with ID & Plastics - Pt is 61 yo with hx morbid obesity, dm, htn - She underwent brachioplasty sam and abdominoplasty 10/10 in [place]. - She fell over the dog 1 week prior to [place] admission and the axillary surgical wound both ripped open - worse on the right side. - She followed up once with her surgeon and was supposed to go back Monday - Pt presented to [place] with several days of f/c/rigors and likely sepsis. - Upon initial presentation, The right axillary wound had alot of foul smelling drainage. - Wound cx from 10/22 swab from axilla growing MRSA\ - Drainage of abdominal seroma and placement of CHRISTINA drain performed by Dr. Moss 10/24/16 - Wound cx from abdominal seroma 10/24/16 growing MRSA - Vancomycin (10/22 - present) - Zosyn (10/22 - 10/24) - Case discussed between Dr. Ramey and Dr. Chapa (10/28/16). Appreciate assistance from Dr. Chapa. - Case discussed between Dr. Ramey and pt's surgeon, Dr. Hernandez ([facility]) on 10/24/16 - Drainage continues from abdominal drain, and drainage from small open area at left lateral portion of abdominal wound - continue current treatment plan - Pt was noted to be volume overloaded likely related to IVF she received as she was felt to be possibly septic on admission - Pt has been receiving IV Lasix with significant clinical improvement from 10/27 - Lasix decreased to 40mg IV daily on 10/29, Renal function is stable. Lasix stopped on 11/01. - PICC placed on 10/31. - Outpt antibiotics to be set up by case management. - Pt concerned about the abdominal wound drain, Dr. Chapa to reassess today - LFTs, BMP, mag in AM - wound care - Anticipate d/c once we deal with her drain issues and Abx are arranged (2) Hyponatremia Status: Acute Plan: - resolved (3) Anemia, blood loss Status: Acute Plan: - per pt's surgeon Dr. Hernandez, her pre-op CBC showed Hg 14 with HCT 43 - pt received 2 units PRBCs on 10/24/16 - Pt's Hg 7.1 (10/24/16) --> 9.0 (10/25/16) --> 8.7 (10/27/16) -->10.4 (10/29/16) --> 8.3 (10/31/16) - Repeat CBC tomorrow and if still trending down will likely need to give more PRBCs (4) DM (diabetes mellitus) Status: Chronic Plan: - metformin (5) HTN (hypertension) Status: Chronic Plan: - improving - atenolol 100mg daily - enalapril 20mg BID - continue to hold HCTZ - observe (6) Elevated transaminase level Status: Acute Plan: - d/t sepsis? - Abdominal US (10/24/16) --> NO biliary obstruction, previous cholecystectomy - overall improving, except alk phos 447 (10/27/16), 441 (10/29/16) - repeat LFTs 10/31 with continued improvement in Alk Phos to 290 (7) Depressed Status: Chronic Assessment and Plan Patient examined. Assessment and plan formulated with Shanique Martin PA-C. I agree with the above. axillary open wounds and abdomen wound. christina drain leaking around the exit site. axillary packed discussed with ID...plan for 2 weeks iv vanco until November 13 picc placed with IR 10/31 Pt eager for d/c...will ask plastic about the christina drain..?removal will ask cp wound care to follow outpt. consult hhc/pt PT will plan for f/u in [place] with her original plastic surgeon. Problem Qualifiers (1) DM (diabetes mellitus): Qualified Code: E11.8 - Type 2 diabetes mellitus with complication, without long-term current use of insulin (2) HTN (hypertension): Qualified Code: I10 - Essential hypertension (3) Depressed: Qualified Code: F32.9 - Depression, unspecified depression type Shanique Martin Nov 01, 2016 09:25 Jacques Reyes MD Nov 01, 2016 14:16
--- NOTE | 2016-11-01 09:36 | HHI.FF ---
Face to Face Verification Diagnosis: (1) Sepsis (2) Post op infection (3) Hyponatremia (4) HTN (hypertension) (5) DM (diabetes mellitus) (6) Depressed (7) Anemia, blood loss (8) Elevated transaminase level Physical Therapy Order: Evaluate and Treat, Improve ambulation Home Health Nursing Order: Wound care and dressing changes (For bilateral axilla wounds: Irrigate wounds with 0.25% Dakin's solution. Apply betadine wet to dry, then dry dressing. Change 1-2 times daily and as needed.) Nursing assessment with vital signs IV medication administration I have seen patient Belinda Kelly on 11/01/16. My clinical findings support the need for the requested home health care services because: Deconditioned w/ increased weakness Infection w/ risk of complications Injectable med education/admin I certify that my clinical findings support that this patient is homebound because: Post-op weakness Shanique Martin Nov 01, 2016 09:36
[2016-11-01 11:31] LABS: AUTOMATED NEUTROPHIL # 4.3 TH/MM3 (1.8-7.7); BASOPHIL # 0.1 TH/MM3 (0-0.2); BASOPHIL % 1.5 % (0.0-2.0); EOSINOPHIL # 0.1 TH/MM3 (0-0.4); EOSINOPHIL % 1.3 % (0.0-4.0); HEMATOCRIT 26.1 % (35.0-46.0); LYMPH % 25.4 % (9.0-44.0); LYMPHOCYTE # 1.7 TH/MM3 (1.0-4.8); MEAN CELL VOLUME 85.8 FL (80.0-100.0); MEAN CORPUSCULAR HEMOGLOBIN 27.6 PG (27.0-34.0); MEAN CORPUSCULAR HGB CONC 32.2 % (32.0-36.0); MONO % 7.2 % (0.0-8.0); NEUT % 64.6 % (16.0-70.0); PLATELET COUNT 543 TH/MM3 (150-450); RED BLOOD COUNT 3.04 MIL/MM3 (4.00-5.30); RED CELL DISTRIBUTION WIDTH 17.5 % (11.6-17.2); WHITE BLOOD COUNT 6.7 TH/MM3 (4.0-11.0)
[2016-11-01 11:36] LABS: HEMO FLAGS AUTO DIFF
[2016-11-01 12:00] VITALS: BP 170/89; PULSE 61; RESP 18; TEMP 98.5; O2SAT 100
[2016-11-01 12:31] LABS: PLATELET ESTIMATE SMEAR HIGH (NORMAL); PLATELET MORPHOLOGY ENLARGED (NORMAL); SCAN/DIFF AUTO DIFF CONFIRMED
--- NOTE | 2016-11-01 14:46 | PD.PLAS.PN ---
Subjective Remarks Patient is feeling better. Vital Signs Date Time Temp Pulse Resp B/P Pulse Ox O2 Delivery O2 Flow Rate FiO2 11/01/16 12:00 98.5 61 18 170/89 100 11/01/16 08:00 96.7 70 16 117/67 98 11/01/16 00:00 97.9 72 19 133/71 98 10/31/16 20:00 98.1 69 20 122/59 95 I/O 10/31/16 10/31/16 10/31/16 11/01/16 11/01/16 11/01/16 07:00 15:00 23:00 07:00 15:00 23:00 Intake Total 895 ml 340 ml 740 ml 240 ml 200 ml Output Total 0 ml 10 ml 10 ml Balance 895 ml 340 ml 730 ml 240 ml 190 ml Intake Oral 480 ml 340 ml 240 ml 240 ml IV Total 415 ml 0 ml 500 ml 0 ml 200 ml Drainage Total 0 ml 10 ml 10 ml # Voids 5 4 2 2 # Bowel Movements 0 1 0 0 Laboratory Tests Test 11/01/16 11:02 White Blood Count 6.7 Red Blood Count 3.04 Hemoglobin 8.4 Hematocrit 26.1 Mean Corpuscular Volume 85.8 Mean Corpuscular Hemoglobin 27.6 Mean Corpuscular Hemoglobin 32.2 Concent Red Cell Distribution Width 17.5 Platelet Count 543 Mean Platelet Volume 7.9 Neutrophils (%) (Auto) 64.6 Lymphocytes (%) (Auto) 25.4 Monocytes (%) (Auto) 7.2 Eosinophils (%) (Auto) 1.3 Basophils (%) (Auto) 1.5 Neutrophils # (Auto) 4.3 Lymphocytes # (Auto) 1.7 Monocytes # (Auto) 0.5 Eosinophils # (Auto) 0.1 Basophils # (Auto) 0.1 CBC Comment AUTO DIFF Differential Comment AUTO DIFF CONFIRMED Platelet Estimate HIGH Platelet Morphology Comment ENLARGED Result Diagram: 11/01/16 1102 10/31/16 0340 Exam Findings Axilla wounds are healing well. Wound beds are granulating. There is no evidence of infection. Abdominal wound is healing well. It continues to drain bilaterally. Drainage is yellow. No evidence of purulence or infection. Impression: (1) Post op infection Plan Sutures are removed from the arms without complication and axilla wounds are redressed with povidone iodine wet to dry dressings. JENNIFER drain is removed from the abdomen and the wounds are dressed with allevyn dressings. Dressings should be changed as needed based on wound drainage. Patient is cleared for discharge from plastic surgery standpoint. She will need home health to help with dressing changes. Discussed with patient and RN. Kate Chapa MD Nov 01, 2016 14:46
[2016-11-01 16:00] VITALS: BP 185/95; PULSE 65; RESP 18; TEMP 98.7; O2SAT 100
[2016-11-01 20:33] VITALS: BP 131/60; PULSE 69; RESP 20; TEMP 98.7; O2SAT 98
[2016-11-01] MEDS: ENOXAPARIN SODIUM 30 MG/0.3 ML SYRINGE SQ SCH (22:24)
[2016-11-01] MEDS: ACETAMINOPHEN 325 MG TAB PO PRN (22:31)
[2016-11-02 00:12] VITALS: BP 122/60; PULSE 62; RESP 20; TEMP 98; O2SAT 97
[2016-11-02 04:41] LABS: AUTOMATED NEUTROPHIL # 4.6 TH/MM3 (1.8-7.7); BASOPHIL # 0.2 TH/MM3 (0-0.2); EOSINOPHIL # 0.1 TH/MM3 (0-0.4); EOSINOPHIL % 1.9 % (0.0-4.0); HEMATOCRIT 25.9 % (35.0-46.0); HEMO FLAGS DIFF FINAL; LYMPH % 28.8 % (9.0-44.0); LYMPHOCYTE # 2.2 TH/MM3 (1.0-4.8); MEAN CELL VOLUME 85.5 FL (80.0-100.0); MEAN CORPUSCULAR HEMOGLOBIN 27.9 PG (27.0-34.0); MEAN CORPUSCULAR HGB CONC 32.6 % (32.0-36.0); MONO % 7.2 % (0.0-8.0); NEUT % 60.1 % (16.0-70.0); PLATELET COUNT 507 TH/MM3 (150-450); RED BLOOD COUNT 3.03 MIL/MM3 (4.00-5.30); RED CELL DISTRIBUTION WIDTH 17.6 % (11.6-17.2); WHITE BLOOD COUNT 7.6 TH/MM3 (4.0-11.0)
[2016-11-02 04:53] LABS: BICARBONATE 23.9 MEQ/L (21.0-32.0); MAGNESIUM 2.1 MG/DL (1.5-2.5); POTASSIUM 3.4 MEQ/L (3.5-5.1)
[2016-11-02 08:00] VITALS: BP 142/65; PULSE 68; RESP 16; TEMP 96.9; O2SAT 99
[2016-11-02] MEDS: SODIUM HYPOCHLORITE 0.25% 500 ML BTL TOPICAL SCH (09:00)
[2016-11-02] MEDS: POVIDONE IODINE 10% SOLN 480 ML BTL TOPICAL SCH (09:00)
[2016-11-02] MEDS: NIFEdipine 60 MG SUSTAINED RELEASE TAB PO SCH (09:09)
[2016-11-02] MEDS: ATENOLOL 100 MG TAB PO SCH (09:10)
[2016-11-02] MEDS: LEVOTHYROXINE SODIUM 112 MCG TAB PO SCH (09:10)
[2016-11-02] MEDS: VENLAFAXINE HCL XR 75 MG CAP PO SCH (09:10)
[2016-11-02] MEDS: ASPIRIN EC 81 MG TABEC PO SCH (09:10)
[2016-11-02] MEDS: SODIUM CHLORIDE 0.9% FLUSH 10 ML FLUSH IVF SCH (09:10)
[2016-11-02] MEDS: ENALAPRIL MALEATE 10 MG TAB PO SCH (09:10)
[2016-11-02] MEDS: TIMOLOL MALEATE 0.5% OPHT SOLN 5 ML BTL EACH EYE SCH (09:12)
--- NOTE | 2016-11-02 10:22 | HHI.PR ---
Subjective Remarks PT WANTS TO GO HOME TODAY. Objective Vitals nad oriented axilla bandaged bilaterally right abdomen drain out. Vital Signs Date Time Temp Pulse Resp B/P Pulse Ox O2 Delivery O2 Flow Rate FiO2 11/02/16 08:00 96.9 68 16 142/65 99 11/02/16 00:12 98.0 62 20 122/60 97 11/01/16 20:33 98.7 69 20 131/60 98 11/01/16 16:00 98.7 65 18 185/95 100 11/01/16 12:00 98.5 61 18 170/89 100 11/01/16 11/01/16 11/02/16 15:00 23:00 07:00 Intake Total 440 ml 250 ml Output Total 10 ml Balance 430 ml 250 ml Intake Oral 240 ml IV Total 200 ml 250 ml Drainage Total 10 ml # Voids 3 5 # Bowel Movements 1 Result Diagram: 11/02/16 0421 11/02/16 0421 Imaging Last Impressions Abdomen X-Ray 10/25/16 0000 Signed Impressions: Service Date/Time: Tuesday, October 25, 2016 13:26 - CONCLUSION: No dilated loops of small bowel seen. Geovany Strong MD Abdomen Ultrasound 10/24/16 1400 Signed Impressions: Service Date/Time: Monday, October 24, 2016 14:14 - CONCLUSION: Nonspecific hepatomegaly. No focal hepatic lesion or evidence of biliary obstruction. Previous cholecystectomy. Darrion Bills MD Chest X-Ray 10/22/16 1619 Signed Impressions: Service Date/Time: Saturday, October 22, 2016 17:12 - CONCLUSION: The lungs are clear. Geovany Strong MD Upper Extremity CT 10/22/16 0000 Signed Impressions: Service Date/Time: Saturday, October 22, 2016 19:40 - CONCLUSION: Soft tissue induration, skin thickening, and subcutaneous collections of gas in the tissues adjacent to the medial armpit. No drainable fluid collections seen. Geovany Strong MD A/P Problem List: (1) Post op infection Status: Acute Plan: - comgmt with ID & Plastics - Pt is 61 yo with hx morbid obesity, dm, htn - She underwent brachioplasty sam and abdominoplasty 10/10 in [place]. - She fell over the dog 1 week prior to [place] admission and the axillary surgical wound both ripped open - worse on the right side. - She followed up once with her surgeon and was supposed to go back Monday - Pt presented to [place] with several days of f/c/rigors and likely sepsis. - Upon initial presentation, The right axillary wound had alot of foul smelling drainage. - Wound cx from 10/22 swab from axilla growing MRSA\ - Drainage of abdominal seroma and placement of JENNIFER drain performed by Dr. Moss 10/24/16 - Wound cx from abdominal seroma 10/24/16 growing MRSA - Vancomycin (10/22 - present) - Zosyn (10/22 - 10/24) - Case discussed between Dr. Ramey and Dr. Chapa (10/28/16). Appreciate assistance from Dr. Chapa. - Case discussed between Dr. Ramey and pt's surgeon, Dr. Hernandez ([facility]) on 10/24/16 - Drainage continues from abdominal drain, and drainage from small open area at left lateral portion of abdominal wound - continue current treatment plan - Pt was noted to be volume overloaded likely related to IVF she received as she was felt to be possibly septic on admission - Pt has been receiving IV Lasix with significant clinical improvement from 10/27 - Lasix decreased to 40mg IV daily on 10/29, Renal function is stable. Lasix stopped on 11/01. - PICC placed on 10/31. - Outpt antibiotics to be set up by case management. - Pt concerned about the abdominal wound drain, Dr. Chapa removed 11/01 d/c home today with hhc/pt...f/u [facility] wound clinic pt undecided which surgeon she will f/u with.....she really wants dr Moss and not sure about f/u with either of other surgeons. ...she will receive phone numbers to our surgeons.DR Moss out of town. Dr Chapa has expressed he would be happy to see her. will call pcp for close f/u of wounds and abx. remove picc after abx. (2) Hyponatremia Status: Acute Plan: - resolved (3) Anemia, blood loss Status: Acute Plan: - per pt's surgeon Dr. Hernandez, her pre-op CBC showed Hg 14 with HCT 43 - pt received 2 units PRBCs on 10/24/16 (4) DM (diabetes mellitus) Status: Chronic Plan: - metformin (5) HTN (hypertension) Status: Chronic Plan: - improving - atenolol 100mg daily - enalapril 20mg BID - continue to hold HCTZ - observe (6) Elevated transaminase level Status: Acute Plan: - d/t sepsis? - Abdominal US (10/24/16) --> NO biliary obstruction, previous cholecystectomy - overall improving, except alk phos 447 (10/27/16), 441 (10/29/16) - repeat LFTs 10/31 with continued improvement in Alk Phos to 290 (7) Depressed Status: Chronic Problem Qualifiers (1) DM (diabetes mellitus): Qualified Code: E11.8 - Type 2 diabetes mellitus with complication, without long-term current use of insulin (2) HTN (hypertension): Qualified Code: I10 - Essential hypertension (3) Depressed: Qualified Code: F32.9 - Depression, unspecified depression type Jacques Reyes MD Nov 02, 2016 10:22
[2016-11-02] MEDS ORDERED: HYDR-3516 PO (10:35)
[2016-11-02] MEDS ORDERED: POTASSIUM CHLORIDE 20 MEQ CONTROLLED RELEASE TAB PO ONE (10:45)
--- NOTE | 2016-11-02 11:24 | HHI.DS ---
Discharge Summary Admission Date Oct 23, 2016 at 12:55 Discharge Date: Nov 02, 2016 Admitting Diagnosis POST OP INFECTION; hyponatremia, elevated liver enzymes (1) Post op infection Diagnosis: Principal (2) Hyponatremia Diagnosis: Secondary (3) Anemia, blood loss Diagnosis: Secondary (4) DM (diabetes mellitus) Diagnosis: Secondary (5) HTN (hypertension) Diagnosis: Secondary (6) Elevated transaminase level Diagnosis: Secondary (7) Depressed Diagnosis: Secondary Consultants Dr. Emigdio Moss/Dr. Sebastien Chapa - Plastic surgery Dr. Shavonne Marlow - ID Brief History Pt is 61 yo woman who underwent bilateral brachioplasy and abdomenoplasty 10/10 in [place]. One week ago she tripped over the dog and significantly ripped open the right axilla and to a smaller degree the left axilla. She reports f/u with her surgeon who per pt proposed a plan of observation and f/u tomorrow. Pt for several days has had fever/chills/ rigors and now foul drainage coming from the right axillary wound. Culture taken last night in ED already growing mrsa. CT shows wound induration and some gas but the wound is wide open. This morning she and her friend report improvement in appearance of the wound and reduced foul odor and drainage. CBC/BMP: 11/02/16 0421 11/02/16 0421 Significant Findings Laboratory Tests Test 10/31/16 10/31/16 11/01/16 11/02/16 03:40 13:59 11:02 04:21 Red Blood Count 2.87 MIL/MM3 3.04 MIL/MM3 3.03 MIL/MM3 (4.00-5.30) (4.00-5.30) (4.00-5.30) Hemoglobin 8.3 GM/DL 8.4 GM/DL 8.4 GM/DL (11.6-15.3) (11.6-15.3) (11.6-15.3) Hematocrit 24.6 % 26.1 % 25.9 % (35.0-46.0) (35.0-46.0) (35.0-46.0) Red Cell Distribution Width 17.4 % 17.5 % 17.6 % (11.6-17.2) (11.6-17.2) (11.6-17.2) Platelet Count 474 TH/MM3 543 TH/MM3 507 TH/MM3 (150-450) (150-450) (150-450) Metamyelocytes 2 % (0-1) Myelocytes 4 % (0-0) Platelet Estimate HIGH (NORMAL) HIGH (NORMAL) Platelet Morphology Comment ENLARGED ENLARGED (NORMAL) (NORMAL) Creatinine 0.22 MG/DL 0.27 MG/DL (0.50-1.00) (0.50-1.00) Calcium Level 7.7 MG/DL 8.0 MG/DL (8.5-10.1) (8.5-10.1) Direct Bilirubin 0.3 MG/DL (0.0-0.2) Aspartate Amino Transf 13 U/L (15-37) (AST/SGOT) Alkaline Phosphatase 290 U/L (45-117) Total Protein 5.5 GM/DL (6.4-8.2) Albumin 2.1 GM/DL (3.4-5.0) Vancomycin Level Trough 17.2 MCG/ML (5.0-10.0) Potassium Level 3.4 MEQ/L (3.5-5.1) Imaging Last Impressions PICC Line Insertion 10/31/16 0000 Signed Impressions: Service Date/Time: Monday, October 31, 2016 15:55 - CONCLUSION: 1. Uncomplicated central venous Power PICC line placement. 2. The PICC line can be used immediately. Amaury Beard MD Abdomen/Pelvis CT 10/26/16 0000 Signed Impressions: Service Date/Time: Wednesday, October 26, 2016 14:53 - CONCLUSION: 1. Small bilateral pleural effusions with passive atelectasis. 2. Anasarca. 3. Intra-abdominal wall surgical drain with air but no fluid. 4. Prior cholecystectomy. Geovany eCja Jr., MD Abdomen X-Ray 10/25/16 0000 Signed Impressions: Service Date/Time: Tuesday, October 25, 2016 13:26 - CONCLUSION: No dilated loops of small bowel seen. Geovany Strong MD Abdomen Ultrasound 10/24/16 1400 Signed Impressions: Service Date/Time: Monday, October 24, 2016 14:14 - CONCLUSION: Nonspecific hepatomegaly. No focal hepatic lesion or evidence of biliary obstruction. Previous cholecystectomy. Darrion Bills MD Chest X-Ray 10/22/16 1619 Signed Impressions: Service Date/Time: Saturday, October 22, 2016 17:12 - CONCLUSION: The lungs are clear. Geovany Strong MD Upper Extremity CT 10/22/16 0000 Signed Impressions: Service Date/Time: Saturday, October 22, 2016 19:40 - CONCLUSION: Soft tissue induration, skin thickening, and subcutaneous collections of gas in the tissues adjacent to the medial armpit. No drainable fluid collections seen. Geovany Strong MD Hospital Course Pt is 61 yo female with hx morbid obesity, Diabetes mellitus, and HTN. She recently underwent bilateral brachioplasty and abdominoplasty 10/10 in [place]. She fell over the dog 1 week prior to [place] admission and the axillary surgical wound both ripped open, worse on the right side. She followed up once with her surgeon and was supposed to go back Monday10/24/16. Pt presented to [place] with several days of f/c/rigors and likely sepsis. Upon initial presentation, the right axillary wound had a lot of foul smelling drainage. Pt was started initially on Vancomycin and Zosyn at admission. Wound cx from 10/22 swab from axilla growing MRSA. The Zosyn was stopped on 10/24/16. Pt was having some swelling of the dressing around the abdominoplasty on the right side. There was concern for bleeding as the pts Hgb had decreased. Pt received 2 units PRBCs on 10/24/16. Plastic surgery was consulted and a JENNIFER drain was placed with drainage of abdominal seroma performed by Dr. Moss 10/24/16. Wound cx from abdominal seroma 10/24/16 grew MRSA as well. Pt was continued on Vancomycin. ID was consulted. Pt was treated with local wound care to the bilateral axillary wounds with improvement. Pt was noted to have elevated transaminases during admission. [place] to likely be due to sepsis. Abdominal US (10/24/16) --> NO biliary obstruction, previous cholecystectomy. Overall improving. This will need repeat labs for monitoring as an outpt. Pt was noted to be volume overloaded likely related to IVF she received as she was felt to be possibly septic on admission. Pt received IV Lasix with significant clinical improvement. Lasix decreased to 40mg IV daily on 10/29, Renal function is stable. Lasix stopped on 11/01. PICC placed on 10/31. ID recommended continuing IV Vancomycin 1.75 gm IV q12H until Nov 13, 2016. The JENNIFER drain was removed from the right side abdominal wound on 11/01/[address] Chapa. Pt will be discharged home with HHC/PT and followup with [facility] Wound Care clinic is scheduled on Monday11/07/16 @ 2:30PM. She will also receive Wound care from the [facility] nurses. PICC line to be removed once Abx are completed Pt is undecided which surgeon she will f/u with, but will need followup within 10 days. She really wants Dr. Moss and not sure about f/u with either of other surgeons. She will receive phone numbers to our surgeons, Dr. Moss is out of town for several weeks. Dr Chapa has expressed he would be happy to see her. Pt will need to followup with her PCP, Dr. Luis Antonio Bernal in 1 week. Pt Condition on Discharge: Stable Discharge Disposition: Disch w/ Home Health Serv Discharge Instructions DIET: Follow Instructions for: As Tolerated, No Restrictions, Diabetic Diet Activities you can perform: Regular-No Restrictions Follow up Referrals: PCP Follow-up - 1 Week with [facility] Plastic Surgery - 10 Days New Medications: Epinephrine Inj (Epinephrine Inj) 1 Mg/Ml Inj 0.3 MG IV PUSH ONCE PRN ALLERGIC REACTION #1 VIAL Epinephrine Inj (Epinephrine Inj) 1 Mg/Ml Inj 0.3 MG SQ ONCE Give with any signs of respiratory distress. PRN ALLERGIC REACTION #1 VIAL Hydrocortisone Inj (Solu-Cortef Inj) 250 Mg Inj 250 MG IV PUSH ONCE Give over 30-60 seconds. PRN ALLERGIC REACTION #1 Ref 0 VIAL Vancomycin Inj (Vancomycin Inj) 10 Gm Inj 1750 MG IV Q12HR Infection Days 14 VIAL Hydrocodone-Acetaminophen (Hydrocodone-Acetaminophen) 5-325 mg Tab 1 TAB PO Q4H PRN pain #20 TAB Continued Medications: Albiglutide 4-Pack Inj (Tanzeum 4-Pack Inj) 30 Mg Pfpen 30 MG SQ Q7D #[address] (Aspirin DR) 81 Mg Tabdr 81 MG PO DAILY Ref 0 TAB Atenolol (Atenolol) 100 Mg Tab 100 MG PO DAILY Blood Pressure Management #30 Ref 0 TAB Calcium (Chelated Calcium) 200 Mg Tab 400 MG PO DAILY TAB Cholecalciferol Liq (Vitamin D3 Liq) 1,200 Unit/15 Ml Liqd Unknown Dose PO DAILY Nutritional Supplement #1 Ref 0 BOTTLE Enalapril (Enalapril) 20 Mg Tab 20 MG PO BID #30 Ref 0 TAB Hydrochlorothiazide (Hydrochlorothiazide) 25 Mg Tab 25 MG PO DAILY #30 Ref 0 TAB Levothyroxine (Levothyroxine) 112 Mcg Tab 112 MCG PO DAILY #30 Ref 0 TAB Metformin (Metformin) 500 Mg Tab 500 MG PO AC DINNER With a meal Blood Sugar Management #30 Ref 0 TAB Timolol Opth Drops (Timolol Opth Drops) 0.5 % Soln 1 DROP EACH EYE BID Glaucoma #1 Ref 0 BOTTLE Venlafaxine ER 24 HR (Effexor XR 24 HR) 150 Mg Cap 150 MG PO DAILY #30 Ref 0 CAP Shanique Martin Nov 02, 2016 11:24 Shanique Martin Nov 02, 2016 11:24
[2016-11-02] MEDS ORDERED: PHARMACY ORDERED LAB ONE (11:45)
[2016-11-02 12:00] VITALS: BP 134/65; PULSE 56; RESP 16; TEMP 98.4; O2SAT 100
[2016-11-02] MEDS: VANCOMYCIN INJ 1,750 MG in SODIUM CHLORID 0.9% 500 ML INJ 500 ML IV SCH (12:00)
[2016-11-02 16:00] VITALS: BP 107/59; PULSE 69; RESP 16; TEMP 98.5; O2SAT 96
[2016-11-03] MEDS ORDERED: VANCOMYCIN INJ 1,500 MG in SODIUM CHLORID 0.9% 500 ML INJ 500 ML IV SCH ×2
[2016-11-04] MEDS ORDERED: PHARMACY ORDERED LAB ONE (11:45)
== END 2016-11-02 18:53 | disposition home health service (06) | DRG 862 ==
LOC: NEPC 15:56 → NEDA 22:11 → NEPGCP 22:55 → OBSVTOIN 10-23 12:55 → N07A 10-23 14:40
PROVIDERS: ADMIT Hospitalist; ATTEND Hospitalist
PROC: 30233N1 Transfusion of Nonautologous Red Blood Cells into Peripheral Vein, Percutaneous Approach (ICD-10-PCS; 2016-10-24)
PROC: 02HV33Z Insertion of Infusion Device into Superior Vena Cava, Percutaneous Approach (ICD-10-PCS; principal; 2016-10-31)
PROC: B518YZA Fluoroscopy of Superior Vena Cava using Other Contrast, Guidance (ICD-10-PCS; 2016-10-31)
DX: T81.4XXA Infection following a procedure, initial encounter (principal); A41.9 Sepsis, unspecified organism; D70.9 Neutropenia, unspecified; T81.31XA Disruption of external operation (surgical) wound, not elsewhere classified, initial encounter; E87.1 Hypo-osmolality and hyponatremia; I10 Essential (primary) hypertension; E11.9 Type 2 diabetes mellitus without complications; B95.62 Methicillin resistant Staphylococcus aureus infection as the cause of diseases classified elsewhere; L76.34 Postprocedural seroma of skin and subcutaneous tissue following other procedure; D50.0 Iron deficiency anemia secondary to blood loss (chronic); Y83.8 Other surgical procedures as the cause of abnormal reaction of the patient, or of later complication, without mention of misadventure at the time of the procedure; F32.9 Major depressive disorder, single episode, unspecified; F17.210 Nicotine dependence, cigarettes, uncomplicated; E87.6 Hypokalemia; E03.9 Hypothyroidism, unspecified; E86.0 Dehydration; E87.70 Fluid overload, unspecified; R74.8 Abnormal levels of other serum enzymes; Z79.84 Long term (current) use of oral hypoglycemic drugs
CPT/HCPCS: 36430; 36569; 71010; 73201; 74000; 74176; 76700; 76937; 77001; 80048; 80053; 80076; 80202; 81001; 82550; 82948; 83605; 83735; 84155; 85007; 85025; 85027; 85610; 85730; 86403; 86850; 86900; 86901; 86920; 87040; 87070; 87147; 87186; 87205; 87804; 93005; 94150; 96360; 96361; 96365; 96368; 96375; C1751; G0378; J1642; J1650; J1815; J1940; J2270; J2405; J2543; J3370; J3480; J7030; J7040; J7050; P9016; Q9967